=== PATIENT | female | born 2000 | race Caucasian/White ===

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

== ENCOUNTER 2021-02-17 06:56 | Emergency (ER) | payer OTHER, SELFPAY ==
[2021-02-17] VITALS (14 sets, daily range): BP systolic 107–122; BP diastolic 54–66; PULSE 62–74; RESP 12–18; TEMP 37; O2SAT 98–100
--- NOTE | 2021-02-17 08:41 | ED.URI ---
HPI - URI/Sore Throat General Chief Complaint: Upper Respiratory Infection Stated Complaint: URI Time Seen by Provider: 02/17/21 06:57 History of Present Illness HPI Narrative: Patient is a 21-year-old female who presents ER with sinus congestion sore throat. Ongoing for the last 2 days. No fevers chills or sweats. No loss of taste or smell. No reported Covid exposures. 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 No employees have been out with Covid other than one person who she did not have close contact with. She is concerned she may have strep throat. Related Data Home Medications Medication Instructions Recorded Confirmed levothyroxine 112 mcg PO DAILY 07/30/20 08/21/20 PNV cmb#95-ferrous fumarate-FA 1 tablet PO DAILY 08/21/20 08/21/20 [] levothyroxine 150 mcg PO DAILY 08/21/20 08/21/20 Allergies Allergy/AdvReac Type Severity Reaction Status Date / Time No Known Allergies Allergy Verified 07/30/20 15:35 Review of Systems Constitutional: Constitutional: Denies chills, Denies fever(s) and Denies weakness ENT: Reports nasal congestion and Reports sore throat Cardiovascular: Cardiovascular: Denies chest pain and Denies radiating jaw, neck or arm pain Respiratory: Respiratory: Denies cough, Denies dyspnea and Denies wheezing Gastrointestinal: Gastrointestinal: Denies nausea and Denies vomiting PMFSH Past Medical History Medical History ADHD Crohn disease Hx of fracture of humerus right Hypothyroid Surgical History Surgical History Hx of tonsillectomy Family History Family History Grandparent Diabetes mellitus Hypertension Mother Hypertension Hypothyroid Social History Social History Smoking status: Never smoker Substance use: never Gender identity (if verbalized by the patient): Female Spiritual care concerns: No Exam Narrative: GENERAL: Well-appearing, well-nourished, and in no acute distress. HEAD: Normocephalic, atraumatic. ENT: Mucous membranes moist. Normal-appearing posterior oropharynx without tonsillar hypertrophy or exudate. Uvula midline and nonedematous. CHEST: Clear to auscultation. No respiratory distress. HEART: Regular rate and rhythm. Normal peripheral pulses. NEURO: Alert and oriented x3. PSYCH: Normal mood and affect. Course Course Emergency Course: Strep negative. Discharge home. Vital Signs Vital signs: Vital Signs Temperature 98.6 F 02/17/21 07:01 Pulse Rate 74 02/17/21 07:01 Respiratory Rate 18 02/17/21 07:01 Blood Pressure 113/61 02/17/21 07:01 Pulse Oximetry 99 02/17/21 07:01 Temperature 98.6 F 02/17/21 07:01 Pulse Rate 62 02/17/21 08:29 Respiratory Rate 14 02/17/21 08:29 Blood Pressure 107/65 02/17/21 08:29 Pulse Oximetry 98 02/17/21 08:29 MDM - URI/Sore Throat Lab Data Labs: Strep Screen Presumptive Negative *(Reference Range: Negative)* Discharge Plan Discharge Clinical Impression: Upper respiratory infection Patient Disposition: Home, Self-Care Condition: Stable Instructions: Upper Respiratory Infection (ED) Additional Instructions: Return to the ER if you cannot breathe, you cannot keep down food or water, you develop fever over 100.4 ?F, you have additional concerns. Prescriptions: No Action levothyroxine 112 mcg Tablet 112 mcg PO DAILY RF: 0 levothyroxine 150 mcg tablet 150 mcg PO DAILY RF: 0 PNV cmb#95-ferrous fumarate-FA [] 28 mg iron- 800 mcg Tablet 1 tablet PO DAILY RF: 0 hydrocodone-acetaminophen 5-325 mg tablet 1 - 2 tablet PO Q4H PRN (Reason: pain) Qty: 25 RF: 0 triamcinolone acetonide 0.5
== END 2021-02-17 09:00 | disposition home or self-care (01) ==
PROVIDERS: Emergency Provider Emergency Medicine; PCP Family Medicine
DX: J06.9 Acute upper respiratory infection, unspecified (principal); E03.9 Hypothyroidism, unspecified; Z90.89 Acquired absence of other organs
CPT/HCPCS: 87081; 87880; 99283

== ENCOUNTER 2021-04-30 17:43 | Emergency (ER) | payer OTHER, SELFPAY ==
--- NOTE | ~2021-04-30 | XR_ITS ---
EXAMINATION: XR chest 1V portable 04/30/2021 18:23 INDICATION: Sore throat and shortness of breath PROCEDURE: AP portable chest COMPARISON: No prior studies for comparison. FINDINGS: The lungs are clear. The cardiomediastinal silhouette is within normal limits. There are no pleural effusions. There is no pneumothorax suspected. IMPRESSION: 1: NO ACUTE CARDIOPULMONARY DISEASE. Reviewed, dictated and finalized at location A. [employer]
[2021-04-30 17:53] VITALS: BP 127/56; PULSE 75; RESP 18; TEMP 36.1; O2SAT 100
--- NOTE | 2021-04-30 18:14 | ED.URI ---
HPI - URI/Sore Throat General Chief Complaint: Upper Respiratory Infection Stated Complaint: ST Time Seen by Provider: 04/30/21 18:00 Source: patient Mode of arrival: ambulatory Limitations: no limitations History of Present Illness HPI Narrative: This is a 21-year-old female that presents to the emergency department for cold symptoms over the last week. Reports cough, congestion, sore throat, and headache. Denies fever or sinus pain. Related Data Home Medications Medication Instructions Recorded Confirmed levothyroxine 112 mcg PO DAILY 07/30/20 08/21/20 levothyroxine 150 mcg PO DAILY 08/21/20 08/21/20 Allergies Allergy/AdvReac Type Severity Reaction Status Date / Time No Known Allergies Allergy Verified 04/30/21 18:20 Review of Systems Review of Systems: CONSTITUTIONAL: Denies fever ENT: Reports rhinorrhea, congestion, sore throat RESPIRATORY: Reports cough. Denies dyspnea. All systems reviewed & are unremarkable except as noted in HPI and below PMFSH Past Medical History Medical History ADHD Crohn disease Hx of fracture of humerus right Hypothyroid Surgical History Surgical History Hx of tonsillectomy Family History Family History Grandparent Diabetes mellitus Hypertension Mother Hypertension Hypothyroid Social History Social History Smoking status: Never smoker Substance use: never Gender identity (if verbalized by the patient): Female Spiritual care concerns: No Exam Narrative: GENERAL: Well-appearing, well-nourished, and in no acute distress. HEAD: Normocephalic, atraumatic. EYES: EOMI. ENT: Nares clear, no rhinorrhea or epistaxis. Mucous membranes moist. Oropharynx without tonsillar hypertrophy exudate or other lesions. Bilateral TMs pearly vega non-bulging. No sinus tenderness NECK: Supple. No adenopathy or masses. CHEST: Clear to auscultation. No respiratory distress. No wheezes rales or rhonchi HEART: Regular rate and rhythm. No murmur heard. Normal peripheral pulses. EXTREMITIES: Normal range of motion. No edema. SKIN: Warm, dry, no rash. NEURO: No focal deficits. Alert and oriented x3. PSYCH: Normal mood and affect Course Vital Signs Vital signs: Vital Signs Temperature 97 F L 04/30/21 17:53 Pulse Rate 75 04/30/21 17:53 Respiratory Rate 18 04/30/21 17:53 Blood Pressure 127/56 L 04/30/21 17:53 Pulse Oximetry 100 04/30/21 17:53 Temperature 97 F L 04/30/21 17:53 Pulse Rate 75 04/30/21 17:53 Respiratory Rate 18 04/30/21 17:53 Blood Pressure 127/56 L 04/30/21 17:53 Pulse Oximetry 100 04/30/21 17:53 MDM - URI/Sore Throat MDM Narrative Medical decision making narrative: Patient presents emergency department for cold symptoms ongoing over the last week. She is afebrile and nontoxic-appearing. Oxygen saturation is normal on room air. Lungs are clear on exam. Influenza and strep screens were negative. SARS-CoV-2 was sent. Chest x-ray without acute cardiopulmonary abnormality. Patient was instructed on continued care of viral infection. She is to follow-up with her primary care doctor. She was given warnings to return to the ER Lab Data Attestation: I reviewed the patient's lab results. Labs: Lab Results 04/30/21 Range/Units 18:37 SARS-CoV-2 RNA (RT-PCR) Pending Influenza A Screen Negative Reference Range: Negative Influenza B Screen Negative Reference Range: Negative Strep Screen Presumptive Negative *(Reference Range: Negative)* Imaging Data Radiologist's impression: ITS Impressions Chest X-Ray 04/30/21 18
[2021-04-30] MEDS: ACETAMINOPHEN 500 MG TABLET 1000 MG PO (18:34)
[2021-04-30] MEDS: KETOROLAC 30 MG/ML VIAL (*BKC) IM (18:34)
--- NOTE | 2021-04-30 18:58 | PC.NURSE ---
Report given to ABIGAIL Garcia
[2021-05-01 15:23] LABS: SARS-CoV-2 RNA PCR Negative
== END 2021-04-30 19:10 | disposition home or self-care (01) ==
PROVIDERS: Physician Assistant; Emergency Provider Emergency Medicine; PCP Family Medicine
DX: J06.9 Acute upper respiratory infection, unspecified (principal); Z20.822 Contact with and (suspected) exposure to COVID-19; E03.9 Hypothyroidism, unspecified; K50.90 Crohn's disease, unspecified, without complications
CPT/HCPCS: 71045; 87081; 87804; 87880; 96372; 99283; A9270; C9803; J1885; U0003; U0005

== ENCOUNTER 2021-05-24 19:08 | Emergency (ER) | payer OTHER, SELFPAY ==
--- NOTE | ~2021-05-24 | XR_ITS ---
XR patella RT 05/24/2021 19:51 INDICATION: Patellar pain after fall PROCEDURE: 2 views of the patella COMPARISON: No prior studies for comparison. FINDINGS: Fracture, dislocation or subluxation is not identified. The soft tissues appear within norm al limits. No foreign bodies are identified. IMPRESSION: 1: NO ACUTE BONE OR JOINT ABNORMALITY IDENTIFIED. Reviewed, dictated and finalized at location A. [employer]
[2021-05-24 19:15] VITALS: BP 125/66; PULSE 69; RESP 16; TEMP 36.7; O2SAT 99
--- NOTE | 2021-05-24 19:38 | ED.LOWEXIN ---
HPI - Extremity Injury (Lower) General Chief Complaint: Extremity Injury, Lower Stated Complaint: RIGHT KNEE PAIN Time Seen by Provider: 05/24/21 19:39 Source: patient and RN notes reviewed Mode of arrival: ambulatory Limitations: no limitations History of Present Illness HPI Narrative: 21-year-old female presents with concern for right knee pain. She reports 30 minutes prior to arrival she tripped hitting her knee on a concrete stair. She reports anterior knee pain and a small scrape to the front of the knee without bleeding. Reports mild pain at rest, worsening pain with weightbearing and palpation. She denies any extension. Related Data Home Medications Medication Instructions Recorded Confirmed levothyroxine 150 mcg PO DAILY 08/21/20 05/24/21 adalimumab [Humira(CF) Pen] 40 mg SUBCUT MONTHLY 05/24/21 05/24/21 levothyroxine 125 mcg PO DAILY 05/24/21 05/24/21 Allergies Allergy/AdvReac Type Severity Reaction Status Date / Time No Known Allergies Allergy Verified 05/24/21 19:29 Review of Systems Review of Systems: CONSTITUTIONAL: Denies malaise, chills, sweats, or fever. CARDIOVASCULAR: Denies chest pain, palpitations, or edema. RESPIRATORY: Denies cough or dyspnea. SKIN: Denies rash or itching, bruising, redness. Reports small open skin without bleeding MUSCULOSKELETAL: Reports right knee pain, swelling NEUROLOGIC: Denies numbness, weakness All systems reviewed & are unremarkable except as noted in HPI and below PMFSH Past Medical History Medical History ADHD Crohn disease Hx of fracture of humerus right Hypothyroid Surgical History Surgical History Hx of tonsillectomy Family History Family History Grandparent Diabetes mellitus Hypertension Mother Hypertension Hypothyroid Social History Social History Smoking status: Never smoker Substance use: never Gender identity (if verbalized by the patient): Female Spiritual care concerns: No Comments At time of signature, agree with nursing past medical, surgical, social and family history. There is no relevant family history pertinent to the presenting complaint Exam Narrative: GENERAL: Well-appearing, well-nourished, and in no acute distress. HEAD: Normocephalic, atraumatic. EYES: PERRLA, conjunctivae clear NECK: Supple. CHEST: Speaks in full sentences. No respiratory distress. HEART: Regular rate and rhythm. Normal and equal peripheral pulses. EXTREMITIES: Right knee has normal strength and sensation, normal range of motion. Mild anterior edema, no erythema or ecchymosis. 5/5 strength with knee flexion and extension. Normal sensation with sensitivity to light touch and pain. Anterior tenderness. No open wounds, no skin tenting, no devitalized tissue or atrophy, no trophic changes, no obvious deformity, alignment normal, nearby joints and structures intact. Distal pulses palpable and equal bilaterally, skin warm, dry, pink. Capillary refill less than 3 seconds. SKIN: Warm, dry, no rash. NEURO: Alert and oriented x3. PSYCH: Normal mood and affect Course Course Emergency Course: Patient is aware of diagnosis, understands and agrees to treatment plan. Anticipatory guidance given. Patient agrees to follow-up as directed and is aware of reasons to seek care at the emergency department. Portions of this record may have been created with voice recognition software Vital Signs Vital signs: Vital Signs Temperature 98.1 F 05/24/21 19:15 Pulse Rate 69 05/24/21 19:15 Respiratory Rate 16 05/24/21 19:15 Blood Pressure 125/66 05/24/21 19:15 Pulse Oximetry 99 05/24/21 19:15 Temperature 98.1 F 05/24/21 19:15 Pulse Rate 69 05/24/21 19:15 Respiratory Rate 16 05/24/21 19:15 Blood Pressure 125/66 12
== END 2021-05-24 20:00 | disposition home or self-care (01) ==
PROVIDERS: Emergency Provider Nurse Practitioner; PCP Family Medicine
DX: S89.91XA Unspecified injury of right lower leg, initial encounter (principal); W10.9XXA Fall (on) (from) unspecified stairs and steps, initial encounter; K50.90 Crohn's disease, unspecified, without complications; E03.9 Hypothyroidism, unspecified
CPT/HCPCS: 73560; 99213; G0463

== ENCOUNTER 2021-09-03 10:36 | Emergency (ER) | payer OTHER, SELFPAY ==
[2021-09-03 10:58] VITALS: BP 102/51; PULSE 66; RESP 16; TEMP 36.7; O2SAT 100
--- NOTE | 2021-09-03 11:05 | ED.URI ---
HPI - URI/Sore Throat General Chief Complaint: Upper Respiratory Infection Stated Complaint: sore throat Time Seen by Provider: 09/03/21 11:05 Source: patient Mode of arrival: ambulatory Limitations: no limitations History of Present Illness HPI Narrative: 21-year-old female presents with complaint of headache, sore throat since yesterday. No other symptoms. States came on suddenly. Afebrile. All systems reviewed and negative except as noted above. Related Data Home Medications Medication Instructions Recorded Confirmed levothyroxine 150 mcg PO DAILY 08/21/20 09/03/21 adalimumab [Humira(CF) Pen] 40 mg SUBCUT MONTHLY 05/24/21 09/03/21 levothyroxine 125 mcg PO DAILY 05/24/21 09/03/21 omeprazole 40 mg PO DAILY 09/03/21 09/03/21 Allergies Allergy/AdvReac Type Severity Reaction Status Date / Time No Known Allergies Allergy Verified 09/03/21 11:11 Review of Systems Review of Systems: CONSTITUTIONAL: Denies fever, chills, or sweats. EYES: Denies visual changes, redness, or discharge. ENT: Denies rhinorrhea, congestion. Reports sore throat. Denies otalgia. CARDIOVASCULAR: Denies chest pain, palpitations, or edema. RESPIRATORY: Denies cough or dyspnea. GASTROINTESTINAL: Denies abdominal pain, nausea, vomiting, or diarrhea. GENITOURINARY: Denies dysuria or hematuria. SKIN: Denies rash or itching. MUSCULOSKELETAL: Denies back pain, joint pain, or myalgia. NEUROLOGIC: Reports headache. Denies numbness, or weakness. PSYCHIATRIC: Denies anxiety or depression. All other systems reviewed are negative, except as documented in HPI. [facility] Past Medical History Medical History ADHD Crohn disease Hx of fracture of humerus right Hypothyroid Surgical History Surgical History Hx of tonsillectomy Family History Family History Grandparent Diabetes mellitus Hypertension Mother Hypertension Hypothyroid Social History Social History Smoking status: Never smoker Substance use: never Gender identity (if verbalized by the patient): Female Spiritual care concerns: No Comments At time of signature, agree with nursing past medical, surgical, social and family history. There is no relevant family history pertinent to the presenting complaint. Exam Narrative: GENERAL: This is a well-nourished, well-developed patient, in no apparent distress. HEAD: normocephalic, atraumatic. EYES: PERRL. Sclera clear/white. Vision is grossly intact. EARS: External ears normal, auditory canals clear and without drainage, TMs normal without perforation. Hearing grossly intact. NOSE: External nose normal with no obvious nasal discharge, nares without redness, no rhinorrhea. THROAT: Mucous membranes moist, posterior pharynx clear. NECK: Neck supple, non-tender without lymphadenopathy, masses or thyromegaly. CARDIOVASCULAR: Regular rate and rhythm without murmurs, gallops, or rubs. RESPIRATORY: Clear to auscultation. Breath sounds equal bilaterally. No wheezes, rales, or rhonchi. SKIN: warm, Dry, intact with no suspicious lesions or rash, good texture and turgor. NEURO: awake, alert, and oriented to person, place and time. There were no obvious focal neurologic abnormalities. EXTREMITIES: Normal range of motion all extremities. Course Course Level of Care: Express Care Visit Vital Signs Vital signs: Vital Signs Temperature 36.7 C 09/03/21 10:58 Pulse Rate 66 09/03/21 10:58 Respiratory Rate 16 09/03/21 10:58 Blood Pressure 102/51 L 09/03/21 10:58 Pulse Oximetry 100 09/03/21 10:58 Temperature 36.7 C 09/03/21 10:58 Pulse Rate 66 09/03/21 10:58 Respiratory Rate 16 09/03/21 10:58 Blood Pressure 102/51 L 09/03/21 10:58 Pulse Oximetry 100 09/03/21 10:58 Reviewed [facility] - URI/
== END 2021-09-03 11:38 | disposition home or self-care (01) ==
PROVIDERS: Emergency Provider Nurse Practitioner Family; PCP Family Medicine
DX: J02.9 Acute pharyngitis, unspecified (principal); K50.90 Crohn's disease, unspecified, without complications; E03.9 Hypothyroidism, unspecified
CPT/HCPCS: 87081; 87880; 99213; G0463

== ENCOUNTER 2021-10-10 10:25 | Emergency (ER) | payer OTHER, SELFPAY ==
[2021-10-10 10:35] VITALS: BP 104/52; PULSE 68; RESP 18; TEMP 36.3; O2SAT 99
--- NOTE | 2021-10-10 11:23 | ED.URI ---
HPI - URI/Sore Throat General Chief Complaint: Upper Respiratory Infection Stated Complaint: Sore Throat Time Seen by Provider: 10/10/21 11:24 Source: patient Mode of arrival: ambulatory Limitations: no limitations History of Present Illness HPI Narrative: Silvia Kern is a 21 yo female with PMH of Crohn's disease and not vaccinated for both flu and COVID who comes with a sore throat and body aches just not feeling well for 2 to 3 days. She states her sore throat is worse with the symptoms she has difficulty swallowing, has tried many [id number] remedies including sprays Related Data Home Medications Medication Instructions Recorded Confirmed levothyroxine 150 mcg PO DAILY 08/21/20 10/10/21 adalimumab [Humira(CF) Pen] 40 mg SUBCUT MONTHLY 05/24/21 10/10/21 levothyroxine 125 mcg PO DAILY 05/24/21 10/10/21 Allergies Allergy/AdvReac Type Severity Reaction Status Date / Time No Known Allergies Allergy Verified 09/03/21 11:11 Review of Systems Review of Systems: CONSTITUTIONAL: Denies fever, chills, sweats. EYES: Denies visual changes, redness, discharge. ENT: Denies rhinorrhea, congestion, has sore throat, has otalgia. CARDIOVASCULAR: Denies chest pain, palpitations, edema. RESPIRATORY: Denies dyspnea, wheezing, has cough GASTROINTESTINAL: Denies abdominal pain, nausea, vomiting, diarrhea. GENITOURINARY: Denies dysuria, hematuria, abnormal discharge SKIN: Denies rash or itching. NEUROLOGIC: Denies numbness, or focal weakness. PSYCHIATRIC: Denies anxiety or depression. [facility] Past Medical History Medical History ADHD Crohn disease Hx of fracture of humerus right Hypothyroid Surgical History Surgical History Hx of tonsillectomy Family History Family History Grandparent Diabetes mellitus Hypertension Mother Hypertension Hypothyroid Social History Social History Smoking status: Never smoker Substance use: never Gender identity (if verbalized by the patient): Female Spiritual care concerns: No Comments At time of signature, I agree with nursing past medical, surgical, social and family history. There is no relevant family history pertinent to the presenting complaint. Exam Narrative: GENERAL: This is a well-nourished, well-developed patient, in mild distress. HEAD: normocephalic, atraumatic. EYES: PERRL. Sclera clear/white. Vision is grossly intact. EARS: External ears normal, auditory canals erythema and without drainage, TMs normal without perforation. Hearing grossly intact. NOSE: External nose normal without nasal discharge, nares without redness, has rhinorrhea. THROAT: Mucous membranes moist, posterior pharynx erythematous no exudate NECK: Neck supple, non-tender CARDIOVASCULAR: Regular rate and rhythm without murmurs, gallops, or rubs. RESPIRATORY: Clear to auscultation. Breath sounds equal bilaterally. No wheezes, rales, or rhonchi. GASTROINTESTINAL: Abdomen soft, SKIN: warm, intact with no suspicious lesions or rash, good texture and turgor. NEURO: awake, alert, and oriented to person, place and time. There were no obvious focal neurologic abnormalities. Steady gait EXTREMITIES: Normal range of motion. BACK: Nontender without deformity Course Course Emergency Course: Patient here with sore throat and cough and feeling not feeling well, x3 days Strep test- negative Flu test - negative COVID test- negative Started on prednisone Melissa Espino right Zithromax Level of Care: Express Care Visit Vital Signs Vital signs: Vital Signs Temperature 97.4 F L 10/10/21 10:35 Pulse Rate 68 10/10/21 10:35 Respiratory Rate 18 10/10/21 10:35 Blood Pressure 104/52 L 10/10/21 10:35 Pulse Oximetry 99 10/10/21 10:35 Temperature 97.4 F L 05/0
== END 2021-10-10 12:09 | disposition home or self-care (01) ==
PROVIDERS: Emergency Provider Nurse Practitioner; PCP Family Medicine
DX: J32.9 Chronic sinusitis, unspecified (principal); B96.89 Other specified bacterial agents as the cause of diseases classified elsewhere; K50.90 Crohn's disease, unspecified, without complications; E03.9 Hypothyroidism, unspecified; Z20.822 Contact with and (suspected) exposure to COVID-19
CPT/HCPCS: 87081; 87426; 87804; 87880; 99213; C9803; G0463

== ENCOUNTER 2021-12-16 10:33 | Emergency (ER) | payer OTHER, SELFPAY ==
[2021-12-16 10:40] VITALS: BP 126/73; PULSE 98; RESP 16; TEMP 36.7; O2SAT 100
--- NOTE | 2021-12-16 10:42 | ED.URI ---
HPI - URI/Sore Throat General Chief Complaint: Upper Respiratory Infection Stated Complaint: uri Time Seen by Provider: 12/16/21 10:44 Source: patient and RN notes reviewed Mode of arrival: ambulatory Limitations: no limitations History of Present Illness HPI Narrative: 21-year-old female presents to the [facility] with complaints of a sore throat, runny nose, nasal congestion for 2 days. Patient states the symptoms started yesterday and took Claritin and a throat spray with no relief. Patient appears nontoxic. Vitals are stable. Denies any chest pain, abdominal pain. Denies fevers. Related Data Home Medications Medication Instructions Recorded Confirmed levothyroxine 150 mcg tablet 150 mcg PO DAILY 08/21/20 12/16/21 adalimumab 40 mg/0.4 mL 40 mg subcut MONTHLY 05/24/21 12/16/21 subcutaneous pen kit (Humira(CF) Pen) levothyroxine 125 mcg tablet 125 mcg PO DAILY 05/24/21 12/16/21 etonogestrel 68 mg subdermal 1 implant subdermal ONCE 12/16/21 12/16/21 implant (Nexplanon) Allergies Allergy/AdvReac Type Severity Reaction Status Date / Time No Known Allergies Allergy Verified 12/16/21 10:39 Review of Systems Review of Systems: All systems reviewed & are unremarkable except as noted in HPI and below Constitutional: Constitutional: Reports no additional constitutional complaints, Denies chills and Denies fever(s) Eyes: Eyes: Reports no additional eye complaints ENT: Reports as per HPI, Reports nasal congestion and Reports sore throat Cardiovascular: Cardiovascular: Reports no additional cardiovascular complaints Respiratory: Respiratory: Reports no additional respiratory complaints Gastrointestinal: Gastrointestinal: Reports no additional gastrointestinal complaints Musculoskeletal: Musculoskeletal: Reports no additional musculoskeletal complaints Integumentary/Breasts: Skin/Breast: Reports system reviewed and no additional complaints, except as docu Neurologic: Reports system reviewed and no additional complaints, except as documented Psychiatric: Psychiatric: Reports no additional psychiatric complaints Allergic/Immunologic: Allergic/Immunologic: Reports no additional allergic/immunologic complaints PMFSH Past Medical History Medical History ADHD Crohn disease Hx of fracture of humerus right Hypothyroid Surgical History Surgical History Hx of tonsillectomy Family History Family History Grandparent Diabetes mellitus Hypertension Mother Hypertension Hypothyroid Social History Social History Smoking status: Never smoker Substance use: never Gender identity (if verbalized by the patient): Female Spiritual care concerns: No Comments At the time of my signature, I reviewed and agree with the nursing past medical, surgical, social, and family history. There is no relevant family history pertinent to the patient complaint. Exam Const: General: healthy appearing, no acute distress and alert Nutritional Appearance: well nourished Orientation/consciousness: patient oriented x3 Limitations: no limitations HENMT: Head: normal to inspection Ears: external ears normal General nose exam: Normal external nose present and Normal nares present Face and sinus: normal facial exam Mouth: Yes Normal oral and palatal mucosa present Throat: posterior oropharynx normal Eyes: General: appearance normal, both eyes and all related structures Pupils: Equal, round and reactive pupils present Neck: Neck: normal visual inspection, no lymphadenopathy and no meningeal signs Chest: Chest palpation & inspection: normal inspection of the chest Resp: Effort & Inspection: normal respiratory effort and no use of accessory muscles Auscultation: clear to auscultation bilaterally
[2021-12-16 21:06] LABS: SARS-CoV-2 RNA PCR Negative
== END 2021-12-16 11:20 | disposition home or self-care (01) ==
PROVIDERS: Emergency Provider Nurse Practitioner; PCP Family Medicine
DX: J06.9 Acute upper respiratory infection, unspecified (principal); Z20.822 Contact with and (suspected) exposure to COVID-19; F90.9 Attention-deficit hyperactivity disorder, unspecified type; K50.90 Crohn's disease, unspecified, without complications; E03.9 Hypothyroidism, unspecified
CPT/HCPCS: 87081; 87804; 87880; 99213; C9803; G0463; U0003; U0005

== ENCOUNTER 2022-01-28 15:15 | Outpatient (CLI) | payer OTHER, SELFPAY ==
--- NOTE | ~2022-01-28 | US_ITS ---
EXAMINATION: US pelvic complete DATE: 01/28/2022 15:47 INDICATION: ABN UTERINE BLEEDING TECHNIQUE: Multiple transabdominal and endovaginal sonographic images of the pelvis were obtained. COMPARISON: None. FINDINGS: Uterus: 8.4 x 3.5 x 5.3 cm. Endometrial complex measures 0.7 cm. Right Ovary: 17.3 x 14.2 x 13.5 cm. Cystic right ovarian or adnexal lesion measuring up to 16.7 cm wi th reticular internal echogenicities, noting that character is difficult to fully define due to size. Vascular flow is present in the wall of the lesion, but this could not be confidently localized to o varian tissue. Left Ovary: Not visualized. There is no free fluid in the pelvis. IMPRESSION: 16.7 cm indeterminate right adnexal/ovarian mass. Ovarian blood flow not confirmed. Recommend gynecol ogy referral for possible surgical excision. Left ovary not visualized. Reviewed, dictated and finalized at location [facility]. IMPRESSION: 16.7 cm indeterminate right adnexal/ovarian mass. Ovarian blood flow not confir med. Recommend gynecology referral for possible surgical excision. Left ovary n ot visualized.
== END 2022-01-28 15:16 | disposition home or self-care (01) ==
PROVIDERS: PCP Family Medicine; Visit Provider Nurse Practitioner Obstetrics & Gynecology
DX: N93.9 Abnormal uterine and vaginal bleeding, unspecified (principal); N83.9 Noninflammatory disorder of ovary, fallopian tube and broad ligament, unspecified
CPT/HCPCS: 76856

== ENCOUNTER 2022-06-12 07:19 | Emergency (ER) | payer OTHER, SELFPAY ==
--- NOTE | ~2022-06-12 | CT_ITS ---
CT Abdomen and Pelvis with contrast. History: Abdominal pain. Spiral CT of the abdomen and pelvis was performed after the administration of intravenous contrast. 1 00 cc of Omnipaque 350 was administered intravenously without complication. Dose reduction technique was used on this scan by utilizing automated exposure control and iterative reconstruction technique. The dose-length product (DLP) was 1523.41 mGy-cm. Findings: Scans through the lung bases demonstrate mild atelectatic change. The liver, spleen, pancreas, gallbladder, adrenals and kidneys are within normal limits. No evidence of aortic aneurysm. No lymphadenopathy is seen. There is no evidence of bowel obstruction. There is no evidence to suggest acute appendicitis or dive rticulitis. Images through the pelvis were performed. Bladder unremarkable. 3.4 cm right ovarian cyst present. No ascites is seen. Impression: 3.4 cm right ovarian cyst. No evidence for acute appendicitis. Female Reviewed, dictated and finalized at [facility]. [employer] Impression: 3.4 cm right ovarian cyst. No evidence for acute appendicitis. Female
[2022-06-12 07:24] VITALS: BP 121/62; PULSE 67; RESP 14; TEMP 36.6; O2SAT 100
--- NOTE | 2022-06-12 07:34 | ED.ABDPAIN ---
HPI - Abdominal Pain General Chief Complaint: Abdominal Pain Stated Complaint: abdominal pain with n/v/d Time Seen by Provider: 06/12/22 07:32 Source: patient Mode of arrival: ambulatory Limitations: no limitations History of Present Illness HPI narrative: Patient presents with intermittent pain in her right lower quadrant started 3 weeks ago. History of left oophorectomy March 2022, patient very anxious about the possibility of ovarian cyst at the right side. Gets better on Tylenol/ibuprofen as needed. Patient reports nausea, vomiting once a day for 2 days in a row, diarrhea twice a day for 2 days in a row. She denies any fever, chills, vaginal bleeding or discharge Related Data Home Medications Medication Instructions Recorded Confirmed levothyroxine 150 mcg tablet 150 mcg PO DAILY 08/21/20 12/16/21 adalimumab 40 mg/0.4 mL 40 mg subcut MONTHLY 05/24/21 12/16/21 subcutaneous pen kit (Humira(CF) Pen) levothyroxine 125 mcg tablet 125 mcg PO DAILY 05/24/21 12/16/21 etonogestrel 68 mg subdermal 1 implant subdermal ONCE 12/16/21 12/16/21 implant (Nexplanon) Allergies Allergy/AdvReac Type Severity Reaction Status Date / Time No Known Allergies Allergy Verified 06/12/22 07:20 Review of Systems Review of Systems: All systems reviewed & are unremarkable except as noted in HPI and below PMFSH Past Medical History Medical History ADHD Crohn disease Hx of fracture of humerus right Hypothyroid Surgical History Surgical History Hx of tonsillectomy Family History Family History Grandparent Diabetes mellitus Hypertension Mother Hypertension Hypothyroid Social History Social History Smoking status: Never smoker Substance use: never Gender identity (if verbalized by the patient): Female Spiritual care concerns: No Exam Narrative: General appearance: Well-developed, well-nourished Skin: Normal color Head: Normocephalic, nontraumatic Eyes: Clear conjunctiva ENT: Oropharynx normal, ears normal, nose normal Neck: Supple, nontender Chest and respiratory: Airway patent, no respiratory distress, no accessory muscle use Heart: Regular rate/rhythm Abdomen: Soft, slight right lower quadrant tenderness, no rebound, no guarding, no organomegaly, quiet bowel sounds Vascular: Normal peripheral pulses, normal capillary refill. Musculoskeletal: Normal range of motion, nontender back Neurologic: Alert and oriented ?3, [employer] is normal as tested, no gross motor deficit Course Consultations Consultation #1: Dr. Larson Patient follow-up as soon as possible Date: 06/12/22 Time: 09:45 Vital Signs Vital signs: Vital Signs Temperature 36.6 C 06/12/22 07:24 Pulse Rate 67 06/12/22 07:24 Respiratory Rate 14 06/12/22 07:24 Blood Pressure 121/62 06/12/22 07:24 Pulse Oximetry 100 06/12/22 07:24 Oxygen Delivery Room Air 06/12/22 07:24 Temperature 36.6 C 06/12/22 07:24 Pulse Rate 67 06/12/22 07:24 Respiratory Rate 14 06/12/22 07:24 Blood Pressure 121/62 06/12/22 07:24 Pulse Oximetry 100 06/12/22 07:24 Oxygen Delivery Room Air 06/12/22 07:24 MDM - Abdominal Pain Differential Diagnosis Differential diagnosis: Likely abdominal pain, acute appendicitis, calculus of kidney, constipation and diverticulitis Lab Data 06/12/22 07:55 06/12/22 07:55 Labs: Lab Results 06/12/22 06/12/22 06/12/22 Range/Units 07:37 07:55 07:55 WBC 6.3 (4.5-10.0) K/
[2022-06-12 07:47] LABS: Add Urine Microscopic? YES; Appearance Urine Slightly Cloudy (Clear); Bilirubin Urine Negative (Negative); Blood Urine 3+ (Negative); Color Urine Amber (Yellow); Glucose Urine UA Negative (Negative); Ketones Urine Negative (Negative); Leukocyte Esterase Ur Negative LEU/UL (Negative); Nitrate Urine Negative (Negative); Protein Urine 1+ mg/dL (Negative); Specific Grav Ur 1.025 (1.001-1.035); Urobilinogen Urine 0.2 mg/dL (<2.0)
[2022-06-12 07:54] LABS: Mucus Urine Rare /lpf; Squamous Epithelial Cell Urine Many /hpf (Few); WBC Urine 16-20 /hpf
[2022-06-12] MEDS: ONDANSETRON INJ 4 MG/2 ML VIAL IV PUSH (08:04)
[2022-06-12] MEDS: SODIUM CHLORIDE 0.9% IV 1,000 ML 999 ML IV CONT (08:04)
[2022-06-12] MEDS: HYDROmorphone HCL INJ (*CRX) 1 MG/ML SYR 0.5 MG IV PUSH (08:05)
[2022-06-12 08:08] LABS: Basophils Percent Auto 0.6 % (0.2-1.2); Eosinophils Absolute Auto 0.1 K/mm3 (0-0.3); Eosinophils Percent Auto 1.6 % (0-4.4); Hematocrit 36.8 % (37.0-47.0); Hemoglobin 11.7 g/dL (12.0-15.0); Immature Granulocyte Absolute 0.02 K/mm3 (0.00-0.031); Immature Granulocyte Percent A 0.3 % (0-0.5); Lymphocytes Absolute Auto 2.43 K/mm3 (0.9-3.2); Lymphocytes Percent Auto 38.9 % (18.3-44.2); Mean Corpuscular HGB Conc 31.8 g/dl (32-36); Mean Corpuscular Hemoglobin 26.3 pg (26-34); Mean Corpuscular Volume 82.7 fl (80-100); Monocytes Absolute Auto 0.3 K/mm3 (0.1-0.6); Monocytes Percent Auto 4.8 % (2.6-8.5); Neutrophils Absolute Auto 3.4 K/mm3 (1.3-6.7); Neutrophils Percent Auto 53.8 % (45.5-73.1); Platelet Count Result 246 k/mm3 (150-375); Red Blood Count 4.45 M/mm3 (4.2-5.4); Red Cell Distribution Width 14.7 % (11.5-14.5); White Blood Count 6.3 K/mm3 (4.5-10.0)
[2022-06-12 08:24] LABS: Alanine Aminotransferase 27 U/L (6-35); Albumin Level 4.5 g/dL (3.5-5.1); Alkaline Phosphatase 39 U/L (38-126); Anion Gap 6 mmol/L (8-16); Aspartate Amino Transferase 29 U/L (14-36); Bilirubin,Total 0.4 mg/dL (0.2-1.3); Blood Urea Nitrogen 14 mg/dL (7-17); Calcium 9.2 mg/dL (8.4-10.2); Carbon Dioxide 24 mmol/L (22-30); Chloride 110 mmol/L (98-107); Estimated CRCL calculation 164 ml/min; Estimated Glomerular Filt Rate > 60; Glucose 103 mg/dL (65-110); Lipase 90 U/L (23-300); Sodium 140 mmol/L (137-145)
[2022-06-12 10:06] VITALS: BP 112/70; PULSE 74; RESP 12; O2SAT 98
== END 2022-06-12 10:08 | disposition home or self-care (01) ==
PROVIDERS: Emergency Provider Emergency Medicine; PCP Family Medicine
DX: N83.201 Unspecified ovarian cyst, right side (principal); K50.90 Crohn's disease, unspecified, without complications; E03.9 Hypothyroidism, unspecified; Z90.721 Acquired absence of ovaries, unilateral
CPT/HCPCS: 36415; 74177; 80053; 81001; 81025; 83690; 85025; 87086; 87088; 96361; 96374; 96375; 99284; J1170; J2405; J7030; Q9967

== ENCOUNTER 2022-10-05 14:39 | Emergency (ER) | payer OTHER, SELFPAY ==
[2022-10-05 14:56] VITALS: BP 94/61; PULSE 116; RESP 18; TEMP 36.9; O2SAT 99
--- NOTE | 2022-10-05 15:09 | ED.URI ---
HPI - URI/Sore Throat General Chief Complaint: Upper Respiratory Infection Stated Complaint: Sore Throat Time Seen by Provider: 10/05/22 15:00 Source: patient Mode of arrival: ambulatory Limitations: no limitations History of Present Illness HPI Narrative: Silvia is a 22-year-old female patient presenting to the clinic today with complaints of sore throat, headache, nasal congestion, nausea, and diarrhea x1 week. She denies any known fever or chills. MD elicited complaint: cough, sore throat, rhinorrhea, nasal congestion and other Related Data Home Medications Medication Instructions Recorded Confirmed levothyroxine 175 mcg tablet 175 mcg DIRECTED 10/05/22 10/05/22 mercaptopurine 50 mg tablet 50 mg DIRECTED 10/05/22 10/05/22 Allergies Allergy/AdvReac Type Severity Reaction Status Date / Time No Known Allergies Allergy Verified 06/12/22 07:20 Review of Systems Review of Systems: Pertinent positives per HPI. Patient denies any fever, chills, rash, headache, visual changes, dizziness, cough, shortness of breath, chest pain, palpitations, nausea, vomiting, diarrhea, constipation, abdominal pain, or any urinary issues. [facility] Past Medical History Medical History ADHD Crohn disease Hx of fracture of humerus right Hypothyroid Surgical History Surgical History Hx of tonsillectomy Family History Family History Grandparent Diabetes mellitus Hypertension Mother Hypertension Hypothyroid Social History Social History Smoking status: Never smoker Substance use: never Living arrangements: with family Gender identity (if verbalized by the patient): Female Spiritual care concerns: No Comments At the time of my signature, I reviewed and agree with the nursing past medical, surgical, social, and family history. There is no relevant family history pertinent to the patient complaint. Exam Narrative: General: Well-developed, well nourished, in no apparent distress Head: Normocephalic, atraumatic Eyes: Pupils equally round and reactive to light bilaterally, EOM intact, sclera and conjunctive clear, no discharge, lids normal Ears: TMs intact and clear, ear canals clear, no drainage, grossly hearing normal. Nose: Nares patent, clear discharge, no inflammation, no sinus tenderness. Mouth: Oral pharynx red without lesions or masses, good dentition, MMM. Neck: Supple, trachea midline, no enlargement of anterior or posterior cervical nodes, no thyroid masses or goiter palpable. Cardio: Regular rate and rhythm, s1 and s2 normal, no murmur appreciated. Resp: Clear to auscultation bilaterally, no rhonchi, rales, wheezing or rubs Course Course Emergency Course: Portions of this record may have been created with voice recognition software. Level of Care: Express Care Visit Vital Signs Vital signs: Vital Signs Temperature 36.9 C 10/05/22 14:56 Pulse Rate 116 H 10/05/22 14:56 Respiratory Rate 18 10/05/22 14:56 Blood Pressure 94/61 L 10/05/22 14:56 Pulse Oximetry 99 10/05/22 14:56 Oxygen Delivery Room Air 10/05/22 14:56 Temperature 36.9 C 10/05/22 14:56 Pulse Rate 116 H 10/05/22 14:56 Respiratory Rate 18 10/05/22 14:56 Blood Pressure 94/61 L 10/05/22 14:56 Pulse Oximetry 99 10/05/22 14:56 Oxygen Delivery Room Air 10/05/22 14:56 Vital signs reviewed MDM - URI/Sore Throat MDM Narrative Medical decision making narrative: At the time of visit patient is resting comfortably on exam table. Strep screen was obtained was positive in the clinic today. Prescription for amoxicillin was sent to the pharmacy and supportive measures were discussed with the patient she voiced understanding discharge instructions and agrees to treatment plan. [place]
== END 2022-10-05 15:21 | disposition home or self-care (01) ==
PROVIDERS: Emergency Provider Nurse Practitioner Family; PCP Family Medicine
DX: J02.0 Streptococcal pharyngitis (principal); E03.9 Hypothyroidism, unspecified; K50.90 Crohn's disease, unspecified, without complications
CPT/HCPCS: 87880; 99213; G0463

== ENCOUNTER 2022-11-24 13:33 | Emergency (ER) | payer OTHER, SELFPAY ==
[2022-11-24 13:40] VITALS: BP 115/56; PULSE 80; RESP 16; TEMP 37.4; O2SAT 99
--- NOTE | 2022-11-24 13:43 | ED.NAVMDI ---
HPI - Nausea/Vomiting/Diarrhea General Chief complaint: Nausea/Vomiting/Diarrhea Stated complaint: Diarrhea/Vomiting Time Seen by Provider: 11/24/22 13:53 Source: patient and RN notes reviewed Mode of arrival: ambulatory Limitations: no limitations History of Present Illness HPI Narrative: 22 year old female presents with concern for N/V/D for two-three days. She reports she tried Pepto-Bismol, and took the Zofran. Reports Zofran helped with her nausea. She reports she continues to have diarrhea. She denies bloody stools. She denies abdominal pain, reports abdominal cramping. She reports chills and headache. 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 She says her periods are irregular, her last menstrual period was last month. She reports urine frequency, denies urgency, dysuria, back pain. She denies fever, body MD elicited complaint: nausea, vomiting and diarrhea Related Data Home Medications Medication Instructions Recorded Confirmed levothyroxine 175 mcg tablet 175 mcg DIRECTED 10/05/22 10/05/22 mercaptopurine 50 mg tablet 50 mg DIRECTED 10/05/22 10/05/22 Allergies Allergy/AdvReac Type Severity Reaction Status Date / Time No Known Allergies Allergy Verified 11/24/22 13:38 Review of Systems Review of Systems: CONSTITUTIONAL: Denies malaise, sweats, or fever. Reports chills ENT: Denies rhinorrhea, congestion, sinus pain, otalgia or sore throat. CARDIOVASCULAR: Denies chest pain, palpitations, or edema. RESPIRATORY: Denies cough or dyspnea. GASTROINTESTINAL: Denies abdominal pain. Reports abdominal cramping, nausea, vomiting, diarrhea. Denies bloody, or mucous stools. GENITOURINARY: Denies dysuria or hematuria. MUSCULOSKELETAL: Denies myalgia. NEUROLOGIC: Reports headache. All systems reviewed & are unremarkable except as noted in HPI and below PMFSH Past Medical History Medical History ADHD Crohn disease Hx of fracture of humerus right Hypothyroid Surgical History Surgical History Hx of tonsillectomy Family History Family History Grandparent Diabetes mellitus Hypertension Mother Hypertension Hypothyroid Social History Social History Smoking status: Never smoker Substance use: never Living arrangements: with family Gender identity (if verbalized by the patient): Female Spiritual care concerns: No Comments At time of signature, agree with nursing past medical, surgical, social and family history. There is no relevant family history pertinent to the presenting complaint Exam Narrative: GENERAL: Well-appearing, well-nourished, and in no acute distress. HEAD: Normocephalic, atraumatic. EYES: PERRLA, conjunctivae clear, and EOMI. ENT: Nares clear, turbinates pink, no rhinorrhea or epistaxis. Mucous membranes moist. Oropharynx without edema, erythema, or lesions. Tonsils not enlarged and without exudate. NECK: Supple. No lymphadenopathy CHEST: Speaks in full sentences. No respiratory distress. HEART: Regular rate and rhythm. ABDOMEN: Soft, obese, nondistended, nontender. No guarding, rebound tenderness, or rigidity. No pulsatile masses. Bowel sounds present in all four quadrants. No organomegaly. Negative Diehl?s sign. No periumbilical tenderness. No Supra public tenderness or distension. No hernia noted. No scars or surface trauma. SKIN: Warm, dry, no rash. NEURO: Alert and oriented x3. PSYCH: Normal mood and affect Course Course Emergency Course: Patient is aware of diagnosis, understands and agrees to treatment plan. Anticipatory guidance given. Patient agrees to follow-up as directed and is aware of reasons to seek care at the emergency department. Portions of this record may have been created with voice recognition software Level of Care: Express Car
== END 2022-11-24 14:21 | disposition home or self-care (01) ==
PROVIDERS: Emergency Provider Nurse Practitioner; PCP Family Medicine
DX: R11.2 Nausea with vomiting, unspecified (principal); R19.7 Diarrhea, unspecified; K50.90 Crohn's disease, unspecified, without complications; E03.9 Hypothyroidism, unspecified
CPT/HCPCS: 81003; 99213; G0463

== ENCOUNTER 2022-12-04 10:54 | Emergency (ER) | payer OTHER, SELFPAY ==
[2022-12-04 11:04] VITALS: BP 111/49; PULSE 77; RESP 16; TEMP 36.7; O2SAT 100
--- NOTE | 2022-12-04 11:37 | ED.GENADULT ---
HPI - General Adult General Chief complaint: Dental/Oral Stated complaint: mouth pain right side Time Seen by Provider: 12/04/22 11:37 Source: patient, RN notes reviewed and old records reviewed Mode of arrival: ambulatory Limitations: no limitations History of Present Illness HPI narrative: 22-year-old female presents to the [facility] with complaints of right lower dental pain. Has a decayed tooth. Yesterday noticed some swelling to the lower right molar center. Pushed on it and noticed some purulent discharge. Patient reports that she has a dental appointment with [facility] on December 09 Related Data Home Medications Medication Instructions Recorded Confirmed levothyroxine 175 mcg tablet 175 mcg DIRECTED 10/05/22 10/05/22 Crohns Injection 12/04/22 mercaptopurine 50 mg tablet mg 12/04/22 Allergies Allergy/AdvReac Type Severity Reaction Status Date / Time No Known Allergies Allergy Verified 12/04/22 11:10 Review of Systems Review of Systems: All systems reviewed & are unremarkable except as noted in HPI and below Constitutional: Constitutional: Reports no additional constitutional complaints Eyes: Eyes: Reports no additional eye complaints ENT: Reports as per HPI Cardiovascular: Cardiovascular: Reports no additional cardiovascular complaints, Denies chest pain and Denies dyspnea Respiratory: Respiratory: Reports no additional respiratory complaints, Denies chest congestion, Denies cough and Denies dyspnea Gastrointestinal: Gastrointestinal: Reports no additional gastrointestinal complaints, Denies abdominal pain, Denies nausea and Denies vomiting Musculoskeletal: Musculoskeletal: Reports no additional musculoskeletal complaints Integumentary/Breasts: Skin/Breast: Reports system reviewed and no additional complaints, except as docu Neurologic: Reports system reviewed and no additional complaints, except as documented Psychiatric: Psychiatric: Reports no additional psychiatric complaints Allergic/Immunologic: Allergic/Immunologic: Reports no additional allergic/immunologic complaints [facility] Past Medical History Medical History ADHD Crohn disease Hx of fracture of humerus right Hypothyroid Surgical History Surgical History Hx of tonsillectomy Family History Family History Grandparent Diabetes mellitus Hypertension Mother Hypertension Hypothyroid Social History Social History (Reviewed 12/05/22 @ 14:18 by ALPESH Parkinson Smoking status: Never smoker Substance use: never Living arrangements: with family Gender identity (if verbalized by the patient): Female Spiritual care concerns: No Comments At the time of my signature, I reviewed and agree with the nursing past medical, surgical, social, and family history. There is no relevant family history pertinent to the patient complaint. Exam Const: General: cooperative, healthy appearing, comfortable, no acute distress, well developed, alert and well nourished Nutritional Appearance: well nourished and obese Orientation/consciousness: patient oriented x3 Limitations: no limitations HENMT: Head: normal to inspection Ears: hearing grossly normal bilaterally and external ears normal Face/Nose/Sinus: Normal external nose present, Normal nares present, Normal nasal mucous membranes and turbinates present and normal facial exam Face and sinus: normal facial exam Mouth: Yes Normal oral and palatal mucosa present, Yes lip normal and Yes moist mucous membranes Teeth and gingiva: abnormal tooth and associated gingiva (right lower decay, caries and swelling ) and poor dentition Throat: posterior oropharynx normal and uvula midline Eyes: General: appearance normal, both eyes and all related structures Alignment and Position: alignment normal Periorbital: perior
== END 2022-12-04 11:50 | disposition home or self-care (01) ==
PROVIDERS: Emergency Provider Nurse Practitioner; PCP Family Medicine
DX: K04.7 Periapical abscess without sinus (principal); E03.9 Hypothyroidism, unspecified
CPT/HCPCS: 99213; G0463

== ENCOUNTER 2023-01-29 11:30 | Emergency (ER) | payer OTHER, SELFPAY ==
[2023-01-29 11:38] VITALS: BP 117/70; PULSE 88; RESP 16; TEMP 37.4; O2SAT 100
[2023-01-29 11:41] VITALS: BP 117/70; PULSE 88; RESP 16; TEMP 37.4; O2SAT 100
--- NOTE | 2023-01-29 12:08 | ED.URI ---
HPI - URI/Sore Throat General Chief Complaint: Upper Respiratory Infection Stated Complaint: Sore Throat Time Seen by Provider: 01/29/23 12:08 Source: patient, RN notes reviewed and old records reviewed Mode of arrival: ambulatory Limitations: no limitations History of Present Illness HPI Narrative: 23-year-old female who presents to [facility] with complaints of awakening this morning with sore throat and right ear pain. 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 Patient reports no fevers chills or sweats or any body aches. MD elicited complaint: cough and sore throat Onset (ago): day(s) (since this morning) Pain scale (0-10): 6 Able to tolerate fluids by mouth: Yes Treatments prior to arrival: acetaminophen and other (claritin) Related Data Home Medications Medication Instructions Recorded Confirmed levothyroxine 100 mcg tablet 100 mcg PO DAILY 01/29/23 01/29/23 levothyroxine 175 mcg tablet 175 mcg PO DAILY 01/29/23 01/29/23 Allergies Allergy/AdvReac Type Severity Reaction Status Date / Time No Known Allergies Allergy Verified 01/29/23 11:39 Review of Systems Review of Systems: CONSTITUTIONAL: Denies malaise, chills, sweats, or fever. EYES: Denies visual changes, redness, or discharge. ENT: Reports rhinorrhea, congestion, no sinus pain,right otalgia and sore throat. CARDIOVASCULAR: Denies chest pain, palpitations, or edema. RESPIRATORY: Reports no cough.? Denies dyspnea. GASTROINTESTINAL: Denies abdominal pain,states some nausea, no vomiting, positive for diarrhea SKIN: Denies rash or itching. MUSCULOSKELETAL: Denies myalgia. NEUROLOGIC: Denies headache. All systems reviewed & are unremarkable except as noted in HPI and below PMFSH Past Medical History Medical History ADHD Crohn disease Hx of fracture of humerus right Hypothyroid Surgical History Surgical History Hx of tonsillectomy Family History Family History Grandparent Diabetes mellitus Hypertension Mother Hypertension Hypothyroid Social History Social History Smoking status: Never smoker Substance use: never Living arrangements: with family Gender identity (if verbalized by the patient): Female Spiritual care concerns: No Comments At time of signature, agree with nursing past medical, surgical, social and family history. There is no relevant family history pertinent to the presenting complaint Exam Narrative: GENERAL: Well-appearing, well-nourished, and in no acute distress. HEAD: Normocephalic EYES: PERRLA, conjunctivae clear ENT: Nares clear, turbinates edematous and erythematous, clear discharge. Mucous membranes moist. TM pearly vega with dull light reflex bilaterally; no tragal tenderness. Oropharynx erythematous without lesions. Tonsils not present and throat without exudate, no drooling, no hoarseness, no trismus, uvula midline. NECK: Supple. No lymphadenopathy CHEST: Clear to auscultation, breath sounds equal. No wheezing, rhonchi, rales, or stridor. No respiratory distress, speaks in full sentences SAO2 100% on room air. HEART: Regular rate and rhythm. No murmur heard. SKIN: Warm, dry, no rash. NEURO: Alert and oriented x3. PSYCH: Normal mood and affect Course Course Emergency Course: Patient is aware of diagnosis, understands and agrees to treatment plan.? Anticipatory guidance given.? Patient agrees to follow-up as dire
== END 2023-01-29 12:26 | disposition home or self-care (01) ==
PROVIDERS: Emergency Provider Registered Nurse; PCP Family Medicine
DX: J06.9 Acute upper respiratory infection, unspecified (principal); J02.9 Acute pharyngitis, unspecified; K50.90 Crohn's disease, unspecified, without complications; E03.9 Hypothyroidism, unspecified
CPT/HCPCS: 87081; 87880; 99213; G0463

== ENCOUNTER 2023-03-07 20:32 | Emergency (ER) | payer OTHER, SELFPAY ==
[2023-03-07 20:39] VITALS: BP 119/68; PULSE 102; RESP 18; TEMP 36.4; O2SAT 99
[2023-03-07 21:37] LABS: Influenza A QL RT-PCR Negative (Negative); Influenza B QL RT-PCR Negative (Negative); SARS-CoV-2 RNA PCR Negative (Negative)
[2023-03-08 01:47] VITALS: BP 117/82; PULSE 73; RESP 17; TEMP 36.3; O2SAT 100
[2023-03-08 02:41] VITALS: BP 128/60; PULSE 87; RESP 16; O2SAT 98
[2023-03-08 02:42] VITALS: BP 128/60; O2SAT 99
[2023-03-08 03:31] VITALS: BP 127/66; O2SAT 98
--- NOTE | 2023-03-08 03:35 | ED.URI ---
HPI - URI/Sore Throat General Chief Complaint: Upper Respiratory Infection Stated Complaint: [id number], GONG, n/v Time Seen by Provider: 03/08/23 03:22 History of Present Illness HPI Narrative: Patient presents to the emergency department with persistent upper respiratory congestion. She has had a persistent cough sinus pressure and postnasal drip for the past 3 weeks. Couple days ago she started having headaches today headache persistent despite ibuprofen and Tylenol at home. Patient has also had diarrhea 2-day. Denies fevers and chills. Related Data Home Medications Medication Instructions Recorded Confirmed levothyroxine 100 mcg tablet 100 mcg PO DAILY 01/29/23 01/29/23 levothyroxine 175 mcg tablet 175 mcg PO DAILY 01/29/23 01/29/23 Allergies Allergy/AdvReac Type Severity Reaction Status Date / Time No Known Allergies Allergy Verified 01/29/23 11:39 Review of Systems Review of Systems: Review of systems negative except what is documented in the HPI [facility] Past Medical History Medical History ADHD Crohn disease Hx of fracture of humerus right Hypothyroid Surgical History Surgical History Hx of tonsillectomy Family History Family History Grandparent Diabetes mellitus Hypertension Mother Hypertension Hypothyroid Social History Social History Smoking status: Never smoker Substance use: never Living arrangements: with family Gender identity (if verbalized by the patient): Female Spiritual care concerns: No Exam Narrative: GENERAL: Well-appearing, well-nourished, and in no acute distress. HEAD: Normocephalic, atraumatic. EYES: PERRLA and EOMI. ENT: Nares clear, no rhinorrhea or epistaxis. Mucous membranes moist. NECK: Supple. CHEST: Clear to auscultation. No respiratory distress. HEART: Regular rate and rhythm. ABDOMEN: Soft, nontender, nondistended. EXTREMITIES: Normal range of motion. No edema. SKIN: Warm, dry, no rash. NEURO: No focal deficits. Alert and oriented x3. PSYCH: Normal mood and affect. Course Course Emergency Course: Exam grossly benign. Lungs clear to auscultation. No hypoxemia. Fioricet and ibuprofen ordered for headache. We will plan for discharge once headache improved Vital Signs Vital signs: Vital Signs Temperature 36.4 C L 03/07/23 20:39 Pulse Rate 102 H 03/07/23 20:39 Respiratory Rate 18 03/07/23 20:39 Blood Pressure 119/68 03/07/23 20:39 Pulse Oximetry 99 03/07/23 20:39 Oxygen Delivery Room Air 03/07/23 20:39 Temperature 36.3 C L 03/08/23 01:47 Pulse Rate 76 03/08/23 04:31 Respiratory Rate 16 03/08/23 04:31 Blood Pressure 125/69 03/08/23 04:31 Pulse Oximetry 97 03/08/23 04:31 Oxygen Delivery Room Air 03/08/23 02:41 MDM - URI/Sore Throat Lab Data Labs: Lab Results 03/07/23 Range/Units 20:47 Influenza A (RT-PCR) Negative (Negative) Influenza B (RT-PCR) Negative (Negative) SARS-CoV-2 RNA (RT-PCR) Negative (Negative) Discharge Plan Discharge Clinical Impression: Sinus congestion, Upper respiratory infection Headache Qualifiers: Headache type: other headache syndrome Qualified Code(s): G44.89 - Other headache syndrome Diarrhea Qualifiers: Diarrhea type: unspecified type Qualified Code(s): R19.7 - Diarrhea, unspecified Patient Disposition: Home, Self-Care Condition: Stable Instructions: Acute Headache (DC), Chronic Cough (ED), Cold Symptoms (ED) Additional Instructions: Drink plenty of fluids Tylenol and ibuprofen for headache Fioricet as needed for breakthrough headache May add Benadryl for breakthrough discomfort Follow-up with your primary care provider Prescriptions: No Action levothyroxine 175 mcg t
[2023-03-08] MEDS: ACETAMINOPHEN/BUTALBITAL/CAFFEINE 325-50-40 MG TABLET (FIORICET) 1 TAB PO (03:55)
[2023-03-08] MEDS: IBUPROFEN 600 MG TABLET PO (03:55)
[2023-03-08 04:01] VITALS: BP 118/60; O2SAT 99
[2023-03-08 04:31] VITALS: BP 125/69; PULSE 76; RESP 16; O2SAT 97
== END 2023-03-08 05:31 | disposition home or self-care (01) ==
PROVIDERS: Emergency Provider Emergency Medicine; PCP Family Medicine
DX: J06.9 Acute upper respiratory infection, unspecified (principal); G44.89 Other headache syndrome; R19.7 Diarrhea, unspecified; R09.81 Nasal congestion; Z20.822 Contact with and (suspected) exposure to COVID-19; K50.90 Crohn's disease, unspecified, without complications; E03.9 Hypothyroidism, unspecified
CPT/HCPCS: 87636; 99283; A9270

== ENCOUNTER 2023-06-16 10:15 | Emergency (ER) | payer OTHER, SELFPAY ==
--- NOTE | 2023-06-16 10:27 | ED.URI ---
HPI - URI/Sore Throat General Chief Complaint: Upper Respiratory Infection Stated Complaint: Sore Throat Time Seen by Provider: 06/16/23 10:53 Source: patient and RN notes reviewed Mode of arrival: ambulatory Limitations: no limitations History of Present Illness HPI Narrative: 23-year-old female presents with concern for sore throat, nasal congestion, headache that started 3 days ago. She reports using cough drops and ibuprofen. Denies fever. 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 throat and nasal congestion Related Data Home Medications Medication Instructions Recorded Confirmed levothyroxine 100 mcg tablet 100 mcg PO DAILY 01/29/23 06/16/23 levothyroxine 175 mcg tablet 175 mcg PO DAILY 01/29/23 06/16/23 certolizumab pegol 400 mg/2 mL 200 mg subcut WEEKLY 06/16/23 06/16/23 (200 mg/mL x2) subcutaneous syringe kit (Cimzia) mercaptopurine 50 mg tablet 50 mg PO DAILY 06/16/23 06/16/23 Allergies Allergy/AdvReac Type Severity Reaction Status Date / Time No Known Allergies Allergy Verified 06/16/23 10:38 Review of Systems Review of Systems: CONSTITUTIONAL: Denies malaise, chills, sweats, or fever. EYES: Denies visual changes, redness, or discharge. ENT: Reports rhinorrhea, congestion, and sore throat. CARDIOVASCULAR: Denies chest pain, palpitations, or edema. RESPIRATORY: Denies cough. Denies dyspnea. GASTROINTESTINAL: Denies abdominal pain, nausea, vomiting, diarrhea SKIN: Denies rash or itching. MUSCULOSKELETAL: Denies myalgia. NEUROLOGIC: Reports headache. All systems reviewed & are unremarkable except as noted in HPI and below PMFSH Past Medical History Medical History ADHD Crohn disease Hx of fracture of humerus right Hypothyroid Surgical History Surgical History Hx of tonsillectomy Family History Family History Grandparent Diabetes mellitus Hypertension Mother Hypertension Hypothyroid Social History Social History Smoking status: Never smoker Substance use: never Living arrangements: with family Gender identity (if verbalized by the patient): Female Spiritual care concerns: No Comments At time of signature, agree with nursing past medical, surgical, social and family history. There is no relevant family history pertinent to the presenting complaint Exam Narrative: GENERAL: Well-appearing, well-nourished, and in no acute distress. HEAD: Normocephalic EYES: PERRLA, conjunctivae clear ENT: Nares clear, turbinates edematous and erythematous, clear discharge. Mucous membranes moist. TM pearly vega with dull light reflex bilaterally; no tragal tenderness. Oropharynx not erythematous without lesions. Tonsils not enlarged and without exudate, no drooling, no hoarseness, no trismus, uvula midline. NECK: Supple. No lymphadenopathy CHEST: Clear to auscultation, breath sounds equal. No wheezing, rhonchi, rales, or stridor. No respiratory distress, speaks in full sentences. HEART: Regular rate and rhythm. No murmur heard. SKIN: Warm, dry, no rash. NEURO: Alert and oriented x3. PSYCH: Normal mood and affect Course Course Emergency Course: Patient is aware of diagnosis, understands and agrees to treatment plan. Anticipatory guidance given. Patient agrees to follow-up as directed and is aware of reasons to seek care at the emergency department. Portions of this record may have been created with voice recognition software Level of Care: Express Care Visit Vital Signs Vital signs: Reviewed. MDM - URI/Sore Throat MDM Narrative Medical decision making narrative: Differential diagnosis considered: Morris virus, strep pharyngitis, allergic rhinitis, upper respiratory tract infection, sinusitis, rhinosinusitis, nasopharyngitis. viral
[2023-06-16 10:30] VITALS: BP 105/62; PULSE 82; RESP 20; TEMP 36.7; O2SAT 99
[2023-06-16 10:45] VITALS: BP 105/62; PULSE 82; RESP 20; TEMP 36.7; O2SAT 99
== END 2023-06-16 11:02 | disposition home or self-care (01) ==
PROVIDERS: Emergency Provider Nurse Practitioner; PCP Family Medicine
DX: J06.9 Acute upper respiratory infection, unspecified (principal); E03.9 Hypothyroidism, unspecified; Z79.899 Other long term (current) drug therapy
CPT/HCPCS: 87081; 87880; 99213; G0463

== ENCOUNTER 2023-08-20 21:40 | Emergency (ER) | payer OTHER, SELFPAY ==
[2023-08-20 21:52] VITALS: BP 121/70; PULSE 66; RESP 15; TEMP 36.5; O2SAT 100
--- NOTE | 2023-08-20 23:08 | PC.NURSE ---
Report received from ABIGAIL Benson. Assumed care of patient at this time.
--- NOTE | 2023-08-21 00:03 | ED.GENADULT ---
HPI - General Adult General Chief complaint: Dental/Oral Stated complaint: dental pain Time Seen by Provider: 08/20/23 23:20 History of Present Illness HPI narrative: Patient 23-year-old female who presents emergency department with chief complaint of dental pain. The patient reports she has a right lower molar that has developed a large cavity in it and was seen by Dentistry and was told to take an antibiotic patient states that the antibiotic did not improve her symptoms in a day and a half and she stop taking the amoxicillin the patient reports the pain is continued denies fever reports that she has a headache from the os. Related Data Home Medications Medication Instructions Recorded Confirmed levothyroxine 100 mcg tablet 100 mcg PO DAILY 01/29/23 06/16/23 levothyroxine 175 mcg tablet 175 mcg PO DAILY 01/29/23 06/16/23 certolizumab pegol 400 mg/2 mL 200 mg subcut WEEKLY 06/16/23 06/16/23 (200 mg/mL x2) subcutaneous syringe kit (Cimzia) mercaptopurine 50 mg tablet 50 mg PO DAILY 06/16/23 06/16/23 Allergies Allergy/AdvReac Type Severity Reaction Status Date / Time No Known Allergies Allergy Verified 06/16/23 10:38 Review of Systems Review of Systems: A 10 system review of systems was completed on the patient and is negative except for what is stated in the HPI. Nursing and ancillary documentation was reviewed. PMFSH Past Medical History Medical History ADHD Crohn disease Hx of fracture of humerus right Hypothyroid Surgical History Surgical History Hx of tonsillectomy Family History Family History Grandparent Diabetes mellitus Hypertension Mother Hypertension Hypothyroid Social History Social History Smoking status: Never smoker Substance use: never Living arrangements: with family Gender identity (if verbalized by the patient): Female Spiritual care concerns: No Exam Narrative: GENERAL: Well-appearing, well-nourished, and in no acute distress. HEAD: Normocephalic, atraumatic. EYES: PERRLA and EOMI. ENT: Nares clear, no rhinorrhea or epistaxis. Mucous membranes moist., no trismus, no necrotic tissue. There is a large cavity present in the right lower molar there is no fluctuance. There is no crepitance NECK: Supple. CHEST: Clear to auscultation. No respiratory distress. HEART: Regular rate and rhythm. No murmur heard. Normal peripheral pulses. ABDOMEN: Soft, nontender, nondistended, normal active bowel sounds. EXTREMITIES: Normal range of motion. No edema. SKIN: Warm, dry, no rash. NEURO: No focal deficits. Alert and oriented x3. PSYCH: Normal mood and affect. Course Vital Signs Vital signs: Vital Signs Temperature 36.5 C 08/20/23 21:52 Pulse Rate 66 08/20/23 21:52 Respiratory Rate 08/20/23 21:52 Blood Pressure 121/70 08/20/23 21:52 Pulse Oximetry 100 08/20/23 21:52 Oxygen Delivery Room Air 08/20/23 21:52 Temperature 36.5 C 08/20/23 21:52 Pulse Rate 66 08/20/23 21:52 Respiratory Rate 08/20/23 21:52 Blood Pressure 121/70 08/20/23 21:52 Pulse Oximetry 100 08/20/23 21:52 Oxygen Delivery Room Air 08/20/23 21:52 Procedures Other Procedure Procedure 1: Other Procedure: Dental block after informed consent 3 mL 2% lidocaine without epinephrine was infiltrated around the affected tooth. Patient had improvement in her pain. There were no complications Medical Decision Making MDM Narrative Medical decision making narrative: Differential diagnosis includes dental caries, dental abscess, without antalgia. Patient shows no signs of Nikolai's angina, no evidence of systemic infection. Patient's pain was controlled with a dental block and the patient w
[2023-08-21 00:14] VITALS: BP 135/78; PULSE 70; RESP 17; TEMP 36.5; O2SAT 99
== END 2023-08-21 00:15 | disposition home or self-care (01) ==
PROVIDERS: Emergency Provider Emergency Medicine; PCP Family Medicine
DX: K02.9 Dental caries, unspecified (principal); K50.90 Crohn's disease, unspecified, without complications; E03.9 Hypothyroidism, unspecified; F90.9 Attention-deficit hyperactivity disorder, unspecified type
CPT/HCPCS: 64999; 99283

== ENCOUNTER 2023-09-24 14:21 | Emergency (ER) | payer OTHER, SELFPAY ==
[2023-09-24 14:24] VITALS: BP 123/64; PULSE 85; RESP 16; TEMP 36.2; O2SAT 100
--- NOTE | 2023-09-24 17:12 | ED_ITS ---
HPI - Back Pain/Injury General Chief Complaint: Back Pain/Injury Stated Complaint: low back pain Time Seen by Provider: 09/24/23 16:57 Source: patient Mode of arrival: ambulatory Limitations: no limitations History of Present Illness HPI Narrative: Patient is a 23-year-old female who presents to the ED with report of lower back pain. Patient is and currently 16 weeks gestation. Patient reports having intermittent lower back pain for the last 3 days. States pain has been worsening, worse with any type of movement. 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 Denies radiation of pain. Denies bowel or bladder incontinence. Denies numbness. Denies urinary complaints. Denies abdominal pain, vaginal bleeding. She is feeling baby move. OBGYN is Dr. Larson. She has appointment with Dr. Larson on Wednesday. Patient has not taken anything for pain. Related Data Home Medications Medication Instructions Recorded Confirmed levothyroxine 100 mcg tablet 100 mcg PO DAILY 01/29/23 06/16/23 levothyroxine 175 mcg tablet 175 mcg PO DAILY 01/29/23 06/16/23 certolizumab pegol 400 mg/2 mL 200 mg subcut WEEKLY 06/16/23 06/16/23 (200 mg/mL x2) subcutaneous syringe kit (Cimzia) mercaptopurine 50 mg tablet 50 mg PO DAILY 06/16/23 06/16/23 Allergies Allergy/AdvReac Type Severity Reaction Status Date / Time No Known Allergies Allergy Verified 09/24/23 15:31 Review of Systems Review of Systems: CONSTITUTIONAL: Denies fever, chills, or sweats. GASTROINTESTINAL: Denies abdominal pain, nausea, vomiting, or diarrhea. GENITOURINARY: Denies dysuria or hematuria. MUSCULOSKELETAL: See HPI. NEUROLOGIC: Denies headache, dizziness, numbness, or weakness. All systems reviewed & are unremarkable except as noted in HPI and below PMFSH Past Medical History Medical History ADHD Crohn disease Hx of fracture of humerus right Hypothyroid Surgical History Surgical History Hx of tonsillectomy Family History Family History Grandparent Diabetes mellitus Hypertension Mother Hypertension Hypothyroid Social History Social History Smoking status: Never smoker Substance use: never Living arrangements: with family Gender identity (if verbalized by the patient): Female Spiritual care concerns: No Exam Narrative: GENERAL: Well appearing, morbidly obese with BMI of 42.3, non-toxic, in no acute distress. HEAD: Normocephalic, atraumatic. RESPIRATORY: Airway patent, respirations nonlabored. CARDIOVASCULAR: Regular rate and rhythm ABDOMINAL: Soft, uterus gravid, no tenderness throughout abdomen, nondistended. Normoactive BS. MUSCULOSKELETAL: Moves all extremities. No gross deformities. Mild bilateral paraspinal muscle tenderness throughout lumbar region. No midline spinal tenderness. Sensation intact. SKIN: Warm, dry, normal color. NEURO: A&O X3. Speech clear. PSYCHIATRIC: Appropriate mood and affect. Normal interaction. Course Vital Signs Vital signs: Vital Signs Temperature 97.1 F L 09/24/23 14:24 Pulse Rate 85 09/24/23 14:24 Respiratory Rate 16 09/24/23 14:24 Blood Pressure 123/64 09/24/23 14:24 Pulse Oximetry 100 09/24/23 14:24 Oxygen Delivery Room Air 09/24/23 14:24 Temperature 97.9 F 09/24/23 18:20 Pulse Rate 80 09/24/23 18:20 Respiratory Rate 99 H 09/24/23 18:20 Blood Pressure 110/68 09/24/23 18:20 Pulse Oximetry 15 L 09/24/23 18:20 Oxygen Delivery Room Air 09/24/23 14:24 MDM - Back Pain/Injury MDM Narrative Medical decision making narrative: Patient presented to ED with 3 day history of lower back pain, currently 16 weeks gestation. Has not tried anything for pain. Neurovascularly intact. No evidence of cord compression or cauda equina at this time. No red flag symptoms. No abdominal pain or vaginal bleeding. She is feeling baby move. I utilized bedside ultrasound and was able to visualize movement with appropriate heart activity. Urinalysis was without evidence for infection. No injury or midline spinal tenderness to suggest need for further imaging at this time. Patient given Tylenol in the ED. Advised pain medication is limited in . Recommended patient continue Tylenol as needed for pain, recommend ice/heat, also prescribe lidocaine patches. Recommended close follow-up with OBGYN for further evaluation. Given return precautions. Discharged in stable condition. Medical Records Attestation: I reviewed the patient's medical records. Lab Data Attestation: I reviewed the patient's lab results. Labs: Lab Results 09/24/23 Range/Units 17:20 Urine Color Yellow (Yellow) Urine Appearance Clear (Clear) Urine pH 6.5 (5.0-9.0) Ur Specific [place] 1.008 (1.001-1.035) Urine Protein Negative (Negative) mg/dL Urine Glucose (UA) Negative (Negative) mg/dL Urine Ketones Negative (Negative) mg/dL Ur Blood (Man) Negative (Negative) Urine Nitrate Negative (Negative) Urine Bilirubin Negative (Negative) Urine Urobilinogen 0.2 (<2.0) mg/dL Leukocyte Esterase Rfl Trace H (Negative) ISELA/UL Urine RBC 0-2 (0-2) /hpf Urine WBC 0-5 (0-3) /hpf Ur Squamous Epith Cells Few (Few) /hpf Urine Bacteria Rare /hpf Urine Casts 0-2 UCG Bedside Result Positive Reference Range: Negative Discharge Plan Discharge Clinical Impression: 16 weeks gestation of Strain of lumbar region Qualifiers: Encounter type: initial encounter Qualified Code(s): S39.012A - Strain of muscle, fascia and tendon of lower back, initial encounter Patient Disposition: Home, Self-Care Condition: Stable Instructions: Antibiotic Form, Acute Low Back Pain (ED), Lower Back Exercises (ED) Additional Instructions: Continue Tylenol as needed for pain. Utilize Lidocaine patches to area of pain. Recommend rest, ice, heat, limiting strenuous activity. Follow-up with your OBGYN for further evaluation. Return to the ED if you experience worsening or severe pain, numbness in groin, incontinence of urine or stool, recurrent injury, weakness, abdominal pain, vaginal bleeding, or any other symptoms of concern. Prescriptions: New lidocaine 5 % adhesive patch,medicated 1 patch topical DAILY Qty: 15 0RF Rx Instructions: leave on most painful area for up to 12 hrs No Action levothyroxine 175 mcg tablet 175 mcg PO DAILY levothyroxine 100 mcg tablet 100 mcg PO DAILY mercaptopurine 50 mg tablet 50 mg PO DAILY Cimzia 400 mg/2 mL (200 mg/mL x 2) syringe kit 200 mg SUBCUT WEEKLY pseudoephedrine HCl [12 Hour Decongestant] 120 mg tablet extended release 120 mg PO Q12H PRN (Reason: nasal congestion) Qty: 20 0RF clindamycin HCl 300 mg capsule 300 mg PO Q6H 7 Days Qty: 28 0RF Follow-up/Referrals: Dorita Larson MD [Physician] - (OBGYNDayday Curtis,Mila Louise MD [Primary Care Provider] - Time of Disposition: 17:54
[2023-09-24] MEDS: ACETAMINOPHEN 500 MG TABLET 1000 MG PO (17:14)
[2023-09-24 17:32] LABS: Appearance Urine Clear (Clear); Bacteria Urine Rare /hpf; Bilirubin Urine Negative (Negative); Blood Urine Negative (Negative); Color Urine Yellow (Yellow); Glucose Urine UA Negative (Negative); Ketones Urine Negative (Negative); Leukocyte Esterase Ur Trace LEU/UL (Negative); Nitrate Urine Negative (Negative); Non Pathogenic Casts 0-2; Protein Urine Negative (Negative); RBC Urine 0-2 /hpf (0-2); Specific Grav Ur 1.008 (1.001-1.035); Squamous Epithelial Cell Urine Few /hpf (Few); Urobilinogen Urine 0.2 mg/dL (<2.0); WBC Urine 0-5 /hpf (0-3); pH Urine 6.5 (5.0-9.0)
[2023-09-24 17:42] LABS: Add Urine Microscopic? YES
[2023-09-24 18:20] VITALS: BP 110/68; PULSE 80; RESP 99; TEMP 36.6; O2SAT 15
== END 2023-09-24 18:22 | disposition home or self-care (01) ==
PROVIDERS: Emergency Provider Physician Assistant; PCP Family Medicine
DX: O9A.212 Injury, poisoning and certain other consequences of external causes complicating pregnancy, second trimester (principal); S39.012A Strain of muscle, fascia and tendon of lower back, initial encounter; O99.612 Diseases of the digestive system complicating pregnancy, second trimester; K50.90 Crohn's disease, unspecified, without complications; O99.282 Endocrine, nutritional and metabolic diseases complicating pregnancy, second trimester; E03.9 Hypothyroidism, unspecified; Z3A.16 16 weeks gestation of pregnancy; X58.XXXA Exposure to other specified factors, initial encounter
CPT/HCPCS: 81001; 81025; 99283; A9270

== ENCOUNTER 2023-12-19 13:24 | Observation (INO) | payer OTHER, SELFPAY ==
[2023-12-19 13:58] LABS: Appearance Urine Cloudy (Clear); Bacteria Urine 3+ /hpf; Bilirubin Urine Negative (Negative); Blood Urine Negative (Negative); Color Urine Yellow (Yellow); Glucose Urine UA Negative (Negative); Ketones Urine Negative (Negative); Leukocyte Esterase Ur 2+ LEU/UL (Negative); Nitrate Urine Negative (Negative); Non Pathogenic Casts 0-2; Protein Urine Negative (Negative); RBC Urine 0-2 /hpf (0-2); Specific Grav Ur 1.019 (1.001-1.035); Squamous Epithelial Cell Urine Many /hpf (Few)
--- NOTE | 2023-12-19 13:58 | OBADM ---
This patient, Silvia Kern, admitted to the OB room OB Post 113 for observation. Patient/family oriented to hospital policies and general routines including ID bracelet, bed and alarms, visiting hours, pain management, procedures, bathroom and other care routines, personal items, smoking policy, room service/diet, and visiting hours. Patient/Family are encouraged to report perceived risks to care and to ask questions if they do not understand what they are told or what they should do.
[2023-12-19 14:03] LABS: Add Urine Microscopic? YES
[2023-12-19 14:31] LABS: SARS-CoV-2 RNA PCR Negative (Negative)
[2023-12-19 14:40] VITALS: TEMP 36.6
--- NOTE | 2023-12-19 15:15 | PC.NURSE ---
1434--Reported labs and pt condition to Dr. Larson. Prescription sent for Macrobid. DC orders given.
--- NOTE | 2024-01-16 21:34 | PM.OBTRLD ---
OB - Triage/Final Diagnosis Visit Information Comments/Additional reasons for admission: I have assessed the risk for this patient, Silvia Kern, and determined that she would benefit from observation care. Evaluation Laboratory results: Laboratory Tests 12/19/23 13:37 Urine Color Yellow Urine Appearance Cloudy H Urine pH 7.0 Ur Specific [place] 1.019 Urine Protein Negative Urine Glucose (UA) Negative Urine Ketones Negative Ur Blood (Man) Negative Urine Nitrate Negative Urine Bilirubin Negative Urine Urobilinogen 1.0 Leukocyte Esterase Rfl 2+ H Urine RBC 0-2 Urine WBC 6-10 H Ur Squamous Epith Cells Many H Urine Bacteria 3+ H Urine Casts 0-2 SARS-CoV-2 RNA (RT-PCR) Negative Final Diagnosis (1) Abdominal pain: Code(s): R10.9 - Unspecified abdominal pain Status: Acute
== END 2023-12-19 14:53 | disposition home or self-care (01) ==
PROVIDERS: Admitting Provider Obstetrics & Gynecology; PCP Family Medicine; Visit Provider Obstetrics & Gynecology
DX: O26.893 Other specified pregnancy related conditions, third trimester (principal); R10.9 Unspecified abdominal pain; O99.891 Other specified diseases and conditions complicating pregnancy; J02.9 Acute pharyngitis, unspecified; Z20.822 Contact with and (suspected) exposure to COVID-19
CPT/HCPCS: 81001; 87086; 87635; G0378; G0379

== ENCOUNTER 2024-03-07 10:29 | Outpatient (CLI) | payer OTHER, SELFPAY ==
[2024-03-07 11:05] LABS: Basophils Percent Auto 0.2 % (0.2-1.2); Eosinophils Percent Auto 0.3 % (0-4.4); Hematocrit 33.4 % (37.0-47.0); Hemoglobin 10.8 g/dL (12.0-15.0); Immature Granulocyte Absolute 0.06 K/mm3 (0.00-0.031); Immature Granulocyte Percent A 0.6 % (0-0.5); Lymphocytes Absolute Auto 2.32 K/mm3 (0.9-3.2); Lymphocytes Percent Auto 24.7 % (18.3-44.2); Mean Corpuscular HGB Conc 32.3 g/dl (32-36); Mean Corpuscular Hemoglobin 29.3 pg (26-34); Mean Corpuscular Volume 90.5 fl (80-100); Mean Platelet Volume 11.6 fl (7.4-10.4); Monocytes Absolute Auto 0.5 K/mm3 (0.1-0.6); Monocytes Percent Auto 5.8 % (2.6-8.5); Neutrophils Absolute Auto 6.4 K/mm3 (1.3-6.7); Neutrophils Percent Auto 68.4 % (45.5-73.1); Platelet Count Result 169 k/mm3 (150-375); Red Blood Count 3.69 M/mm3 (4.2-5.4); Red Cell Distribution Width 13.8 % (11.5-14.5); White Blood Count 9.4 K/mm3 (4.5-10.0)
[2024-03-07 11:55] LABS: HIV 1/2 Ab P24 Ag Result Negative (Negative)
[2024-03-07 12:19] LABS: Rapid Plasma Reagin Non-Reactive (NonReactive)
== END 2024-03-07 10:30 | disposition home or self-care (01) ==
PROVIDERS: PCP Family Medicine; Visit Provider Obstetrics & Gynecology
DX: Z01.818 Encounter for other preprocedural examination (principal)
CPT/HCPCS: 36415; 85025; 86592; 86703; 86850; 86900; 86901; G0432

== ENCOUNTER 2024-03-08 09:52 | Inpatient (IN) | payer OTHER, SELFPAY ==
[2024-03-08] VITALS (49 sets, daily range): BP systolic 94–123; BP diastolic 49–72; PULSE 44–92; RESP 12–20; TEMP 36.2–37.1; O2SAT 95–100; BMI 44.9
[2024-03-08] MEDS: LACTATED RINGERS 1,000 ML 125 ML IV CONT ×2 (10:21→11:23)
[2024-03-08] MEDS: ACETAMINOPHEN 500 MG TABLET 1000 MG PO (10:21)
--- NOTE | 2024-03-08 10:54 | LDADM ---
This patient, Silvia Kern, was admitted to Labor/Delivery/Recovery 120 on 03/08/24 at 09:52. Plans for pain management and were discussed with patient. Patient/family oriented to hospital policies and general routines including ID bracelet, bed and alarms, visiting hours, pain management, procedures, bathroom and other care routines, personal items, smoking policy, room service/diet and guest tray routines, infant security routines, and visiting hours. Patient/Family are encouraged to report perceived risks to care and to ask questions if they do not understand what they are told or what they should do. See OBIX for further documentation.
--- NOTE | 2024-03-08 11:14 | P.PNAN_ITS ---
Anes - Initial Pre Proc Eval Procedure: Operation Date: 03/08/24 12:00 Proposed Procedures p Section - Mik Barriga MD Date/Time: 03/08/24 11:14 Surgeon: Mik Barriga MD Pre Op Diagnosis: c section Patient Data Age: 24 Gender: F Height: 1.7 m Weight: 130 kg Last Vital Signs Temp 36.7 C 03/08/24 10:49 Pulse 87 03/08/24 10:49 Resp 16 03/08/24 10:49 BP 123/63 03/08/24 10:49 Pulse Ox 99 03/08/24 10:10 O2 Del Method Room Air 03/08/24 10:49 Allergies Allergy/AdvReac Type Severity Reaction Status Date / Time No Known Allergies Allergy Verified 03/08/24 10:25 Home Medications Medication Instructions Recorded Confirmed Type levothyroxine 100 mcg tablet 100 mcg PO DAILY 01/29/23 02/14/24 History levothyroxine 175 mcg tablet 175 mcg PO DAILY 01/29/23 02/14/24 History certolizumab pegol 400 mg/2 mL 400 mg subcut WEEKLY 06/16/23 02/14/24 History (200 mg/mL x2) subcutaneous syringe kit (Cimzia) 1 tablet PO QHS 03/08/24 03/08/24 History Patient hx anesthesia problems: none Family hx anesthesia problems: none Results Review: All pre-operative results and documents have been reviewed as part of the pre- operative evaluation. [facility] Past Medical History Medical History (Updated 03/08/24 @ 11:14 by Brent Rangel MD) ADHD Crohn disease Hx of fracture of humerus right Hypothyroid Morbid obesity Surgical History Surgical History History of section Hx of tonsillectomy Family History Family History Grandparent Diabetes mellitus Hypertension Mother Hypertension Hypothyroid Social History Social History Smoking status: Current every day smoker Tobacco type: e-cigarettes/vaping Second hand tobacco smoke exposure: No Substance use: never Do You Feel Safe in your Home?: Yes Lack of Transportation: No Lack of Food: Never True Current Housing: I Have Housing Concerned About Future Housing: No Difficulty Paying Gas/Electric Bills: No Difficulty Paying for Meds: No Currently Unemployed: No Education: High School Diploma/GED Difficulty w/ Childcare or Family Care: No Living arrangements: with family Gender identity (if verbalized by the patient): Female Spiritual care concerns: No Anes - Eval Final PreProcedure Day of Procedure 03/08/24 11:14 Patient weight: morbidly obese Heart: regular rate and rhythm Lungs: clear to auscultation Airway: Mallampati scale class II Neurological: alert and oriented Last oral intake: >/= 8 hours ASA classification: III Emergent: no Anesthetic plan: proceed Anesthesia type and monitoring: regional spinal and standard monitoring Results Review: All pre-operative results and documents have been reviewed as part of the pre- operative evaluation. Informed Consent: The patient's anesthetic plan and its attendant risks and benefits were discussed with the patient/family/POA. Questions were solicited and answers provided to the satisfaction of the patient/family/POA.
[2024-03-08] MEDS: ONDANSETRON INJ 4 MG/2 ML VIAL IV PUSH (11:35)
[2024-03-08] MEDS: FAMOTIDINE 20 MG/2 ML VIAL IV PUSH (11:35)
[2024-03-08] MEDS: ceFAZolin 3 GM/D5W 100 ML 100 ML IVPB (12:10)
--- NOTE | 2024-03-08 12:15 | PM.IMHP ---
H&P: HPI History of Present Illness Date/Time: 03/08/24 12:15 Chief Complaint: repeat c section, suspected LGA fetus Narrative: Patient is a 24 year old who presents for repeat c section. Her has been complicated by prior c section for failure to progress wtih 9lb baby. Most recent EFW was 4500g at 39 weeks. She also has a history of Crohns disease and hx of LSO for ovarian cyst. She denies strong contractions, LOF or VB. GOod movement. Review of Systems Review of Systems: All systems reviewed & are unremarkable except as noted in HPI and below PMFSH Past Medical History Medical History (Updated 03/08/24 @ 12:18 by Mik Barriga MD) ADHD Crohn disease Hx of fracture of humerus right Hypothyroid Morbid obesity Surgical History Surgical History History of section Hx of tonsillectomy Family History Family History Grandparent Diabetes mellitus Hypertension Mother Hypertension Hypothyroid Social History Social History Smoking status: Current every day smoker Tobacco type: e-cigarettes/vaping Second hand tobacco smoke exposure: No Substance use: never Do You Feel Safe in your Home?: Yes Lack of Transportation: No Lack of Food: Never True Current Housing: I Have Housing Concerned About Future Housing: No Difficulty Paying Gas/Electric Bills: No Difficulty Paying for Meds: No Currently Unemployed: No Education: High School Diploma/GED Difficulty w/ Childcare or Family Care: No Living arrangements: with family Gender identity (if verbalized by the patient): Female Spiritual care concerns: No Meds Home Medications and Allergies Home Medications Medication Instructions Recorded Confirmed Type levothyroxine 100 mcg tablet 100 mcg PO DAILY 01/29/23 02/14/24 History levothyroxine 175 mcg tablet 175 mcg PO DAILY 01/29/23 02/14/24 History certolizumab pegol 400 mg/2 mL 400 mg subcut WEEKLY 06/16/23 02/14/24 History (200 mg/mL x2) subcutaneous syringe kit (Cimzia) 1 tablet PO QHS 03/08/24 03/08/24 History Allergies Allergy/AdvReac Type Severity Reaction Status Date / Time No Known Allergies Allergy Verified 03/08/24 10:25 Vital Signs Vital Signs - 24 hr 03/08/24 10:10 03/08/24 11:41 03/08/24 11:53 Temperature 97.7 F Pulse Rate 87 65 Respiratory Rate Blood Pressure 123/63 110/64 Pulse Oximetry 99 Oxygen Delivery 03/08/24 10:21 03/08/24 10:49 03/08/24 10:49 Temperature 98.1 F 98.1 F Pulse Rate 87 Respiratory Rate 16 Blood Pressure 123/63 Pulse Oximetry Oxygen Delivery Room Air Exam Const: General: comfortable and no acute distress HENMT: Mouth: Yes moist mucous membranes Resp: Effort & Inspection: normal respiratory effort Cardio: Rate: regular rate Extrem: General: normal to inspection Psych: Mental Status: mental status grossly normal Assessment and Plan Assessment and plan (1) Hx of section complicating : Code(s): O34.219 - Maternal care for unspecified type scar from previous delivery Status: Acute Assessment and Plan: - risks, benefits and alternatives of repeat c section vs TOLAC discussed with patient who desires to proceed with repeat c section (2) Macrosomia affecting management of mother: Code(s): O36.60X0 - Maternal care for excessive growth, unspecified trimester, not applicable or unspecified Status: Acute
[2024-03-08] MEDS: OXYTOCIN 30 UNITS/NS 500 ML 30 UNITS/500 ML BAG 125 UNITS IV CONT (14:43)
[2024-03-08] MEDS: diphenhydrAMINE HCl INJ 50 MG/ML VIAL 25 MG IV PUSH (14:49)
--- NOTE | 2024-03-08 15:57 | OBPPTRN ---
Patient transferred to post room #286 via stretcher. Support person present. Oriented to unit, room, information board, rooming in, admission packet and security measures. Patient verbalizes understanding.
[2024-03-08] MEDS: KETOROLAC 15 MG/ML VIAL (*BKC) IV PUSH (16:56)
[2024-03-08] MEDS: DOCUSATE SODIUM 100 MG CAPSULE PO (16:56)
[2024-03-08] MEDS: LIDOCAINE 5% PATCH 1 PATCH TRANSDERM (16:56)
[2024-03-08] MEDS: ACETAMINOPHEN 325 MG TABLET 650 MG PO (16:56)
[2024-03-08] MEDS: SIMETHICONE 80 MG TAB.CHEW PO (16:56)
[2024-03-08] MEDS: DEXTROSE 5%/0.45% SOD CHL 1,000 ML 125 ML IV CONT (20:20)
--- NOTE | 2024-03-08 22:53 | W.PM.OBCSD ---
OB - Delivery Note Procedure Delivery date: 03/08/24 Pre-op diagnosis: Macrosomia and Previous Delivery Post-op Diagnosis: Same Delivery monitor: External FHT Prior to decision for section, ACOG/SMFM labor guidelines were considered and discussed with the patient and staff. Decision made to proceed with the section.: Yes Procedure Performed: Repeat Secondary branch: low cervical, transverse Surgeon: Mik Barriga MD Anesthesia type: Spinal Description of Procedure/Findings: The patient was taken to the operating room where she was placed in the dorsal supine position with a leftward tilt. The electronic monitor was placed and heart rate was found to be reassuring. She was prepped and draped in the normal sterile fashion, and anesthesia was checked to be adequate. A Pfannenstiel skin incision was made with the scalpel and carried through to the underlying layer of fascia with the scalpel. The fascia was incised in the midline and the incision extended laterally with the Guajardo scissors. The superior aspect of the fascial incision was then grasped with Marquez clamps, elevated, and the underlying rectus muscles dissected off bluntly and with Guajardo scissors. Attention was then turned to the inferior aspect of the fascial incision, which in similar fashion was grasped, elevated, and the rectus muscles dissected off.? The rectus muscles were then in the midline, and the peritoneum entered bluntly. There were a large amount of filmy and thick adhesions between the peritoneum and the uterus. The peritoneal incision was extended superiorly and inferiorly with good visualization of the bladder. With the bladder blade providing retraction and visualization, the lower uterine segment was incised in a transverse fashion with the scalpel. The uterine incision was then extended laterally. The bladder blade was removed and the infant's head was elevated and delivered atraumatically. The remainder of the infant was then delivered without difficulty, and the infant's nose and mouth were suctioned with the bulb suction. The umbilical cord was doubly clamped and cut. The was then handed off to the waiting nursing staff. Specimens then obtained as listed below. The placenta was then removed manually and the uterus was exteriorized and cleared of all clots and debris. The uterine incision was repaired with 0-Monocryl in a running, interlocked fashion. The posterior cul-de-sac was manually cleared of all clots and debris. The uterus was returned to the abdomen. The gutters were then manually cleared of all clots and debris.? The uterine incision was visualized to be hemostatic. The fascia was reapproximated with 0-Vicryl in a running fashion. The subcutaneous tissues were irrigated with warmed normal saline, and hemostasis was assured. The subcutaneous tissue was greater than 2 cm and closed in a running fashion with 2-0 plain gut suture.? The skin was closed with 4-0 monocryl in a running subcuticular stitch. Fundal pressure was applied to express remaining intrauterine clots and debris. The patient tolerated the procedure well. Sponge, lap, and needle counts were correct times three per nursing. The patient was taken to the recovery room in stable condition. Pathology: None sent Complications: No immediate complications Condition: Stable Disposition: Floor [place] Baby Date of : 03/08/24 Gestational Age by Date: 39 gender: Female presentation: vertex Placenta delivery description: Expressed Cord Vessel Description: 3 Vessels and Delayed Cord Clamping
[2024-03-09] MEDS: LORATADINE 10 MG TABLET PO (01:04)
[2024-03-09] MEDS: KETOROLAC 15 MG/ML VIAL (*BKC) IV PUSH ×3 (01:04→13:10)
[2024-03-09] MEDS: ACETAMINOPHEN 325 MG TABLET 650 MG PO ×4 (01:04→19:36)
[2024-03-09 01:10] VITALS: BP 103/62; PULSE 59; RESP 18; TEMP 37; O2SAT 98
[2024-03-09 05:50] LABS: Basophils Percent Auto 0.2 % (0.2-1.2); Eosinophils Percent Auto 0.2 % (0-4.4); Hematocrit 28.8 % (37.0-47.0); Hemoglobin 9.4 g/dL (12.0-15.0); Immature Granulocyte Absolute 0.07 K/mm3 (0.00-0.031); Immature Granulocyte Percent A 0.7 % (0-0.5); Lymphocytes Absolute Auto 1.82 K/mm3 (0.9-3.2); Lymphocytes Percent Auto 18.7 % (18.3-44.2); Mean Corpuscular HGB Conc 32.6 g/dl (32-36); Mean Corpuscular Hemoglobin 29.6 pg (26-34); Mean Corpuscular Volume 90.6 fl (80-100); Mean Platelet Volume 12.1 fl (7.4-10.4); Monocytes Absolute Auto 0.7 K/mm3 (0.1-0.6); Monocytes Percent Auto 6.9 % (2.6-8.5); Neutrophils Absolute Auto 7.2 K/mm3 (1.3-6.7); Neutrophils Percent Auto 73.3 % (45.5-73.1); Platelet Count Result 127 k/mm3 (150-375); Red Blood Count 3.18 M/mm3 (4.2-5.4); Red Cell Distribution Width 13.9 % (11.5-14.5); White Blood Count 9.8 K/mm3 (4.5-10.0)
[2024-03-09] MEDS: DOCUSATE SODIUM 100 MG CAPSULE PO ×2 (07:13→17:54)
[2024-03-09] MEDS: POLYSACCHARIDE IRON COMPLEX 150 MG CAPSULE PO ×2 (07:13→17:54)
[2024-03-09] MEDS: SIMETHICONE 80 MG TAB.CHEW PO ×3 (07:13→17:54)
[2024-03-09] MEDS: MULTIVIT/MIN/PREN/FOL AC/IRON TABLET 1 TAB PO (07:13)
[2024-03-09 08:15] VITALS: BP 110/58; PULSE 71; RESP 16; TEMP 36.6; O2SAT 100
--- NOTE | 2024-03-09 08:44 | PM.OBPNVD ---
OB - PN: Subj Subjective Date/time seen: 03/09/24 08:44 Patient comments: no complaints, pain well controlled, tolerating diet and flatus present OB - PN: Obj Data Labs 03/09/24 05:36 Labs: Laboratory Results - last 24 hr 03/09/24 05:36 WBC 9.8 RBC 3.18 L Hgb 9.4 L Hct 28.8 L MCV 90.6 MCH 29.6 MCHC 32.6 RDW 13.9 Plt Count 127 L MPV 12.1 H Immature Gran % (Auto) 0.7 H Neut % (Auto) 73.3 H Lymph % (Auto) 18.7 [place] % (Auto) 6.9 Eos % (Auto) 0.2 Baso % (Auto) 0.2 Lymph # (Auto) 1.82 [place] # (Auto) 0.7 H Eos # (Auto) 0.0 Baso # (Auto) 0.0 Abs Immat Gran (auto) 0.07 H Absolute Neuts (auto) 7.2 H Absolute Nucleated RBC 0.000 Nucleated RBC % 0.0 OB - PN A/P Plan day: 1 Comments: Post Op LTCS - no problems, routine recovery Time Spent With Patient Time: Total time spent is greater than 50% in coordination of care (as documented) at patient's floor/unit and/or counseling patient: Exam Const: General: cooperative, healthy appearing, comfortable and no acute distress Resp: Auscultation: no crackles, no rales, no rhonchi and no wheezes Cardio: Rhythm: regular rhythm Heart sounds: no click and no murmurs GI: Inspection: non-distended Auscultation: normal bowel sounds Extrem: General: normal to inspection, no pedal edema and no calf tenderness
--- NOTE | 2024-03-09 10:04 | WPDANLDPN2 ---
Anes-Prog Note L&D Date/Time: 03/09/24 10:04 Comfortable throughout: section Neuraxial method: spinal Epidural/Spinal procedure site: clean & non-tender Neuro status: Neuro function grossly intact. Cardiovascular status: normal Respiratory status: normal Airway patency: baseline Mental status: baseline Post-Op hydration status: normal Vital Signs: Last Vital Signs Temp 36.6 C 03/09/24 08:15 Pulse 71 03/09/24 08:15 Resp 16 03/09/24 08:15 BP 110/58 L 03/09/24 08:15 Pulse Ox 100 03/09/24 08:15 O2 Del Method Room Air 03/09/24 07:15 Pain score (VAS): 1 I/O: Intake & Output 03/08/24 03/09/24 03/09/24 23:59 07:59 15:59 Intake Total 770 Output Total 145 1150 Balance -145 -380 Post-procedural complaints: none Patient feedback: Patient satisfied with anesthetic care.
--- NOTE | 2024-03-09 10:05 | WPDANLDNPN2 ---
Anes-Prog Note L&D-Neuraxial Date/Time: 03/09/24 10:05 Neuraxial medications: intrathecal PF morphine Opiod-related complaints: none Patient feedback: Patient satisfied with post-operative pain management.
[2024-03-09 12:04] VITALS: BP 115/52; PULSE 72; RESP 16; TEMP 36.7; O2SAT 100
--- NOTE | 2024-03-09 14:41 | WPDANLDPN2 ---
Anes-Prog Note L&D Date/Time: 03/09/24 14:41 Comfortable throughout: section Neuraxial method: spinal Epidural/Spinal procedure site: clean & non-tender Neuro status: Neuro function grossly intact. Cardiovascular status: normal Respiratory status: normal Airway patency: baseline Mental status: baseline Post-Op hydration status: normal Vital Signs: Last Vital Signs Temp 36.7 C 03/09/24 12:04 Pulse 72 03/09/24 12:04 Resp 16 03/09/24 12:04 BP 115/52 L 03/09/24 12:04 Pulse Ox 100 03/09/24 12:04 O2 Del Method Room Air 03/09/24 07:15 Pain score (VAS): 2 I/O: Intake & Output 03/08/24 03/09/24 03/09/24 23:59 07:59 15:59 Intake Total 770 480 Output Total 145 1150 300 Balance -145 -380 180 Post-procedural complaints: none Patient feedback: Patient satisfied with anesthetic care.
--- NOTE | 2024-03-09 14:41 | WPDANLDNPN2 ---
Anes-Prog Note L&D-Neuraxial Date/Time: 03/09/24 14:41 Patient feedback: Patient satisfied with post-operative pain management.
[2024-03-09] MEDS: IBUPROFEN 600 MG TABLET PO (19:36)
[2024-03-09 19:38] VITALS: BP 118/68; PULSE 74; RESP 16; TEMP 36.8; O2SAT 98
[2024-03-10] MEDS: IBUPROFEN 600 MG TABLET PO ×2 (01:30→08:47)
[2024-03-10] MEDS: ACETAMINOPHEN 325 MG TABLET 650 MG PO ×2 (01:30→08:47)
--- NOTE | 2024-03-10 07:30 | PM.OBPNVD ---
OB - PN: Subj Subjective Date/time seen: 03/10/24 07:30 Interval history: pp day 2 desires d/c home flatus present OB - PN: Obj Data Labs 03/09/24 05:36 OB - PN A/P Plan day: 2 Plan: routine care and discharge home Time Spent With Patient Time: Total time spent is greater than 50% in coordination of care (as documented) at patient's floor/unit and/or counseling patient: Review of Systems Review of Systems: All systems reviewed & are unremarkable except as noted in HPI and below Exam Const: General: cooperative, healthy appearing and comfortable Chest: Chest palpation & inspection: normal inspection of the chest GI: Other: incision CDI Back/Spine/Pelvis: Back: no CVA tenderness Skin: General skin exam: normal color
--- NOTE | 2024-03-10 07:33 | PM.OBDSVD ---
DS: Admitting Diagnosis Discharge Date 03/10/24 Admitting Diagnosis rpt DS: Discharge Diagnosis Discharge Diagnosis (1) Post-op pain: Code(s): G89.18 - Other acute postprocedural pain Status: Acute (2) Hx of section complicating : Code(s): O34.219 - Maternal care for unspecified type scar from previous delivery Status: Acute OB - DS: Summary OB Procedures : None OB Procedures Intrapartum: OB Procedures: : None Peripartum Data Procedures: Procedures Operation Date: 03/08/24 12:00 Actual Procedure Side Surgeon p Section Not Applicable Mik Barriga MD Time Spent with Patient Time attestation: Total time spent providing and/or coordinating discharge services: Discharge Plan Discharge Attending physician on discharge: Mik Barriga Discharging Clinician: Piedad Hernandez Patient Disposition: Home, Self-Care Activity: pelvic rest Diet: regular Patient Instructions: Antibiotic Form, How to Stop Smoking (GEN), Cigarette Smoking and Your Health (GEN), Secondhand Smoke Exposure in Children (ED), Electronic Cigarettes and Your Health (GEN) Stand Alone Forms: General Discharge Information Follow-up/Referrals: Mik Barriga MD [Physician] - 1 Week Discharge Medications: New hydrocodone-acetaminophen 5-325 mg Tablet 1 tablet PO Q3H PRN (Reason: Breakthrough Pain Rated 4-6) Qty: 30 0RF Continued levothyroxine 175 mcg tablet 175 mcg PO DAILY levothyroxine 100 mcg tablet 100 mcg PO DAILY Cimzia 400 mg/2 mL (200 mg/mL x 2) syringe kit 400 mg SUBCUT WEEKLY 1 tablet PO QHS Date of admission: 03/08/24 09:52 Primary Care Provider: Kirsten,Mila Louise Admitting Provider: Mik Barriga Attending physician on admission: Mik Barriga Condition: Stable
[2024-03-10 08:20] VITALS: BP 124/67; PULSE 76; RESP 16; TEMP 36.9; O2SAT 100
[2024-03-10] MEDS: POLYSACCHARIDE IRON COMPLEX 150 MG CAPSULE PO (08:46)
[2024-03-10] MEDS: MULTIVIT/MIN/PREN/FOL AC/IRON TABLET 1 TAB PO (08:46)
--- NOTE | 2024-03-10 19:49 | PC.NURSE ---
1100 Patient viewed the discharge video Mother & Baby Care, The First Two Weeks . Patient was given the opportunity and encouraged to ask questions. Patient verbalized understanding of information shared and has been given the mother/baby guide for home reference.
[2024-03-11 10:16] VITALS: BP 124/67; PULSE 65; RESP 18; TEMP 36.6; O2SAT 100
== END 2024-03-10 15:05 | disposition home or self-care (01) | DRG 540 ==
LOC: ANHLDR 11:59 → ANHOB2 15:59
PROVIDERS: Admitting Provider Obstetrics & Gynecology; PCP Family Medicine; Visit Provider Obstetrics & Gynecology
PROC: 10D00Z1 Extraction of Products of Conception, Low, Open Approach (ICD-10-PCS; CPT 59514; principal; 2024-03-08 12:00)
DX: O34.211 Maternal care for low transverse scar from previous cesarean delivery (principal); Z37.0 Single live birth; Z3A.39 39 weeks gestation of pregnancy; O36.63X0 Maternal care for excessive fetal growth, third trimester, not applicable or unspecified; O99.284 Endocrine, nutritional and metabolic diseases complicating childbirth; E03.9 Hypothyroidism, unspecified
CPT/HCPCS: 36415; 85025; A9270; J0690; J1200; J1596; J1885; J2274; J2371; J2405; J2590; J7120

== ENCOUNTER 2024-06-20 15:46 | Emergency (ER) | payer OTHER, SELFPAY ==
--- NOTE | 2024-06-20 15:48 | ED.GENADULT ---
HPI - General Adult General Chief complaint: Nausea/Vomiting/Diarrhea Stated complaint: nausea,fever,diarrhea Time Seen by Provider: 06/20/24 16:00 Source: patient, RN notes reviewed and old records reviewed Mode of arrival: ambulatory Limitations: no limitations History of Present Illness HPI narrative: 24-year-old female presents to the [facility] with complaints of nausea, feeling feverish, diarrhea x2 episodes since last night. Is able to eat or drink without issue since she vomited 1 time this morning. Patient denies abdominal pain or chest pain. No treatment prior to arrival Related Data Home Medications ?Medication ?Instructions ?Recorded ?Confirmed ?Last Taken ?Type certolizumab pegol 400 mg/2 mL 400 mg subcut WEEKLY 06/16/23 02/14/24 02/23/24 12:00 History (200 mg/mL x2) subcutaneous syringe kit (Cimzia) levothyroxine 150 mcg tablet 150 mcg PO .QD 06/20/24 06/20/24 Unknown History Allergies Allergy/AdvReac Type Severity Reaction Status Date / Time No Known Allergies Allergy Verified 06/20/24 15:48 Review of Systems Review of Systems: All systems reviewed & are unremarkable except as noted in HPI and below Constitutional: Constitutional: Reports no additional constitutional complaints ENT: Reports system reviewed and no additional complaints, except as documented Cardiovascular: Cardiovascular: Reports no additional cardiovascular complaints, Denies chest pain and Denies dyspnea Respiratory: Respiratory: Reports no additional respiratory complaints, Denies chest congestion, Denies cough and Denies dyspnea Gastrointestinal: Gastrointestinal: Reports as per HPI Musculoskeletal: Musculoskeletal: Reports no additional musculoskeletal complaints Integumentary/Breasts: Skin/Breast: Reports system reviewed and no additional complaints, except as docu PMFSH Past Medical History Medical History Morbid obesity Post-op pain Crohn disease ADHD Hypothyroid Hx of fracture of humerus right Surgical History Surgical History History of section Hx of tonsillectomy Family History Family History Grandparent Diabetes mellitus Hypertension Mother Hypertension Hypothyroid Social History Social History Smoking status: Current every day smoker Tobacco type: e-cigarettes/vaping Second hand tobacco smoke exposure: No Substance use: never Do You Feel Safe in your Home?: Yes Lack of Transportation: No Lack of Food: Never True Current Housing: I Have Housing Concerned About Future Housing: No Difficulty Paying Gas/Electric Bills: No Difficulty Paying for Meds: No Currently Unemployed: No Education: High School Diploma/GED Difficulty w/ Childcare or Family Care: No Living arrangements: with family Gender identity (if verbalized by the patient): Female Spiritual care concerns: No Comments At the time of my signature, I reviewed and agree with the nursing past medical, surgical, social, and family history. There is no relevant family history pertinent to the patient complaint. Exam Const: General: cooperative, healthy appearing, comfortable, no acute distress, well developed, alert and well nourished Nutritional Appearance: well nourished and obese Orientation/consciousness: patient oriented x3 Limitations: no limitations HENMT: Head: normal to inspection Eyes: General: appearance normal, both eyes and all related structures Alignment and Position: alignment normal Neck: Neck: normal visual inspection, full ROM, no lymphadenopathy and no meningeal signs Chest: Chest palpation & inspection: normal inspection of the chest Resp: Effort & Inspection: normal respiratory effort and able to speak in complete sentences Auscultation: clear to auscultation bilaterally, no crackles, no rales, no rhonchi and no wheezes Cardio: Rate: regular rate GI: GI Palp: No abdominal tenderness : General: Yes no CVA tenderness Skin: General skin exam: normal color and no rashes or lesions noted Neuro: General: patient oriented x3, gait normal, moves all extremities and no meningeal signs Cognition (Neuro): normal cognition Speech: normal speech Gait exam (Neuro): Normal gait present Extrem: General: normal to inspection, full ROM, capillary refill normal and normal gait Psych: Appearance: grossly normal and well kempt Mental Status: mental status grossly normal Speech and movement: Normal speech and movement present and Clear speech present Affect: normal affect Attitude: cooperative Course Course Level of Care: Express Care Visit Vital Signs Vital signs: Vital Signs Temperature 98.5 F 06/20/24 15:54 Pulse Rate 72 06/20/24 15:54 Respiratory Rate 16 06/20/24 15:54 Blood Pressure 119/64 06/20/24 15:54 Pulse Oximetry 100 06/20/24 15:54 Oxygen Delivery Room Air 06/20/24 15:54 Temperature 98.5 F 06/20/24 15:54 Pulse Rate 72 06/20/24 15:54 Respiratory Rate 16 06/20/24 15:54 Blood Pressure 119/64 06/20/24 15:54 Pulse Oximetry 100 06/20/24 15:54 Oxygen Delivery Room Air 06/20/24 15:54 Reviewed Medical Decision Making MDM Narrative Medical decision making narrative: Patient sitting comfortably in exam room. Nontoxic, vitals stable. Patient in no acute distress Patient presents for for less than 1 day history of nausea, vomited x1, feeling feverish in diarrhea x2 episodes. No acute findings noted on exam. Patient appropriate for outpatient treatment with [id number] products, simple diet. Discussed in great detail signs and symptoms go to emergency room which she verbalized understanding Discharge instructions reviewed with patient, as well as provided in writing per nursing staff. The instructions also include specific and strict return/GO TO THE ER as well as f/u information. All questions have been answered, and the patient deny any further questions with discharge and discharge plan. Some parts of this dictation were generated by voice recognition software and may contain typographical and/or grammatical inaccuracies. Differential Diagnosis Differential Diagnosis: Gastroenteritis acid reflux Medical Records Medical records reviewed: Yes I reviewed the external patient's medical records. Vital Signs Vital Signs: Vital Signs Temperature 98.5 F 06/20/24 15:54 Pulse Rate 72 06/20/24 15:54 Respiratory Rate 16 06/20/24 15:54 Blood Pressure 119/64 06/20/24 15:54 Pulse Oximetry 100 06/20/24 15:54 Oxygen Delivery Room Air 06/20/24 15:54 Temperature 98.5 F 06/20/24 15:54 Pulse Rate 72 06/20/24 15:54 Respiratory Rate 16 06/20/24 15:54 Blood Pressure 119/64 06/20/24 15:54 Pulse Oximetry 100 06/20/24 15:54 Oxygen Delivery Room Air 06/20/24 15:54 Reviewed Lab Data Lab results reviewed: Yes I reviewed the patient's lab results. Labs: Lab Results 06/20/24 Range/Units 16:13 POC Influenza A Ag Negative (Negative) POC Influenza B Ag Negative (Negative) POC SARS CoV-2 Ag Negative (Negative) Reviewed Critical Care Time Critical Care Time Critical Care Time: No Discharge Plan Discharge Clinical Impression: Gastroenteritis Patient Disposition: Home, Self-Care Condition: Stable Instructions: Antibiotic Form, Gastroenteritis (ED) Additional Instructions: Keep your diet very simple. Nothing fried, greasy, spicy or highly processed for 72 hours. Stay hydrated with plenty of water, Gatorade, Pedialyte, ice pops in Jell-O Today your COVID and flu tests were negative Take Tylenol as needed for discomfort Follow-up with your primary care provider For new or worsening symptoms go directly to the emergency room Patient Language: Ivorian Prescriptions: No Action Cimzia 400 mg/2 mL (200 mg/mL x 2) syringe kit 400 mg SUBCUT WEEKLY levothyroxine 150 mcg tablet 150 mcg PO .QD Follow-up/Referrals: Kirsten,Mila Louise MD [Primary Care Provider] - 1 Week (express care follow up) Stand Alone Forms: Work/School Release IP Time of Disposition: 16:18
[2024-06-20 15:54] VITALS: BP 119/64; PULSE 72; RESP 16; TEMP 36.9; O2SAT 100
[2024-06-20 16:15] LABS: EDCOVIDSCREEN Negative (Negative); EDINFLUASCREEN Negative (Negative); EDINFLUBSCREEN Negative (Negative)
== END 2024-06-20 16:20 | disposition home or self-care (01) ==
PROVIDERS: Emergency Provider Nurse Practitioner; PCP Family Medicine
DX: K52.9 Noninfective gastroenteritis and colitis, unspecified (principal); Z20.822 Contact with and (suspected) exposure to COVID-19; F17.290 Nicotine dependence, other tobacco product, uncomplicated; K50.90 Crohn's disease, unspecified, without complications; E03.9 Hypothyroidism, unspecified; E66.01 Morbid (severe) obesity due to excess calories; Z68.41 Body mass index [BMI] 40.0-44.9, adult
CPT/HCPCS: 87426; 87804; 99212; G0463

== ENCOUNTER 2024-07-03 18:00 | Emergency (ER) | payer OTHER, SELFPAY ==
[2024-07-03 18:03] VITALS: BP 126/64; PULSE 68; RESP 16; TEMP 36.7; O2SAT 100
--- NOTE | 2024-07-03 18:37 | ED.URI ---
HPI - URI/Sore Throat General Chief Complaint: Upper Respiratory Infection Stated Complaint: Sore Throat/Ears Irritation Time Seen by Provider: 07/03/24 18:29 Source: patient and RN notes reviewed Mode of arrival: ambulatory Limitations: no limitations History of Present Illness HPI Narrative: Patient presents today with a 3 day history of sore throat, nasal congestion, and bilateral ear pain. Denies fever, cough, shortness of breath. She currently rates her pain 6/10 and has been using cough drops without relief. 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 Related Data Home Medications ?Medication ?Instructions ?Recorded ?Confirmed ?Last Taken ?Type certolizumab pegol 400 mg/2 mL 400 mg subcut WEEKLY 06/16/23 02/14/24 02/23/24 12:00 History (200 mg/mL x2) subcutaneous syringe kit (Cimzia) levothyroxine 150 mcg tablet 150 mcg PO .QD 06/20/24 06/20/24 Unknown History Allergies Allergy/AdvReac Type Severity Reaction Status Date / Time No Known Allergies Allergy Verified 07/03/24 18:15 Review of Systems Review of Systems: CONSTITUTIONAL: Denies body aches, fever, chills, or sweats. EYES: Denies visual changes, redness, or discharge. ENT: Denies rhinorrhea.+ congestion, sore throat, bilateral ear pain CARDIOVASCULAR: Denies chest pain, palpitations, or edema. RESPIRATORY: Denies cough or dyspnea. GASTROINTESTINAL: Denies abdominal pain, nausea, vomiting, or diarrhea. GENITOURINARY: Denies dysuria or hematuria. SKIN: Denies rash, itching, or wounds. MUSCULOSKELETAL: Denies back pain, joint pain, or myalgia. NEUROLOGIC: Denies headache, numbness, tingling, or weakness. PSYCH: Denies depression or anxiety. [facility] Past Medical History Medical History Morbid obesity Post-op pain Crohn disease ADHD Hypothyroid Hx of fracture of humerus right Surgical History Surgical History History of section Hx of tonsillectomy Family History Family History Grandparent Diabetes mellitus Hypertension Mother Hypertension Hypothyroid Social History Social History Smoking status: Current every day smoker Tobacco type: e-cigarettes/vaping Second hand tobacco smoke exposure: No Substance use: never Do You Feel Safe in your Home?: Yes Lack of Transportation: No Lack of Food: Never True Current Housing: I Have Housing Concerned About Future Housing: No Difficulty Paying Gas/Electric Bills: No Difficulty Paying for Meds: No Currently Unemployed: No Education: High School Diploma/GED Difficulty w/ Childcare or Family Care: No Living arrangements: with family Gender identity (if verbalized by the patient): Female Spiritual care concerns: No Comments At time of signature, I have reviewed and agree with nursing past medical, surgical, social and family history unless otherwise noted. Please see nursing chart for further information. There is no relevant family history pertinent to the presenting complaint Exam Narrative: GENERAL: Well-appearing, well-nourished, and in no acute distress. HEAD: Normocephalic, atraumatic. EYES: EOMI. No redness or drainage. Conjunctivae normal. ENT: Mucous membranes pink and moist. Nares congested. No rhinorrhea. TMs normal bilaterally. Throat normal. Uvula midline. NECK: Normal AROM. Supple. No lymphadenopathy. CHEST: No respiratory distress. Clear to auscultation. HEART: Regular rate and rhythm. No murmur appreciated. EXTREMITIES: Normal range of motion. No edema. SKIN: Warm, dry, no rash. Capillary refill normal. Normal skin turgor. NEURO: No focal deficits. Alert and oriented x3. Gait steady. PSYCH: Normal affect. No signs of depression or anxiety. Course Course Level of Care: Express Care Visit Vital Signs Vital signs: Vital Signs Temperature 98.0 F 07/03/24 18:03 Pulse Rate 68 07/03/24 18:03 Respiratory Rate 16 07/03/24 18:03 Blood Pressure 126/64 07/03/24 18:03 Pulse Oximetry 100 07/03/24 18:03 Oxygen Delivery Room Air 07/03/24 18:03 Temperature 98.0 F 07/03/24 18:03 Pulse Rate 68 07/03/24 18:03 Respiratory Rate 16 07/03/24 18:03 Blood Pressure 126/64 07/03/24 18:03 Pulse Oximetry 100 07/03/24 18:03 Oxygen Delivery Room Air 07/03/24 18:03 Reviewed MDM - URI/Sore Throat MDM Narrative Medical decision making narrative: Testing negative. Strep culture pending. Symptoms likely viral in etiology. Discussed [id number] medication use and duration of illness. No prescription medications indicated at this time. Anticipatory guidance given. ED precautions given. Differential Diagnosis Differential diagnosis: Likely upper respiratory infection, otitis media, viral infection, influenza, pharyngitis and other (COVID-19, strep throat) Lab Data Attestation: I reviewed the patient's lab results. Critical Care Time Critical Care Time Critical Care Time: No Discharge Plan Discharge Clinical Impression: Upper respiratory infection Qualifiers: URI type: unspecified URI Qualified Code(s): J06.9 - Acute upper respiratory infection, unspecified Patient Disposition: Home, Self-Care Condition: Stable Instructions: Upper Respiratory Infection (DC) Additional Instructions: Your COVID-19, influenza, and strep swabs are negative today. You will be notified in a few days if the culture comes back positive for strep, and appropriate antibiotics will be called in for you at that time. Your symptoms are likely due to a viral illness, which is not treated with antibiotics. Viral symptoms can be present for up to 7-10 days. Take Tylenol or ibuprofen for fever or pain. Rest and stay hydrated. Follow up with your PCP in 7 days if symptoms are not improving. Go to the ER immediately if you have any difficulty breathing or swallowing. Your blood pressure was elevated above 120/80 today at Urgent Care. This puts you above the threshold for follow up. Please schedule a followup visit with your personal physician as soon as possible, for further evaluation and treatment. Even blood pressure exceeding 120/80 may indicate pre-hypertension. Patient Language: Estonian Prescriptions: No Action Cimzia 400 mg/2 mL (200 mg/mL x 2) syringe kit 400 mg SUBCUT WEEKLY levothyroxine 150 mcg tablet 150 mcg PO .QD Follow-up/Referrals: Contreras,Iggy Castillo APRN [Primary Care Provider] - Time of Disposition: 18:41
[2024-07-03 18:42] LABS: EDCOVIDSCREEN Negative (Negative); EDINFLUASCREEN Negative (Negative); EDINFLUBSCREEN Negative (Negative); EDSTREPNEGPOS1 Negative (Negative)
== END 2024-07-03 18:48 | disposition home or self-care (01) ==
PROVIDERS: Emergency Provider Nurse Practitioner; PCP Nurse Practitioner Family
DX: J06.9 Acute upper respiratory infection, unspecified (principal); Z20.822 Contact with and (suspected) exposure to COVID-19; F17.290 Nicotine dependence, other tobacco product, uncomplicated; K50.90 Crohn's disease, unspecified, without complications; E03.9 Hypothyroidism, unspecified; E66.01 Morbid (severe) obesity due to excess calories; Z68.41 Body mass index [BMI] 40.0-44.9, adult
CPT/HCPCS: 87081; 87426; 87804; 87880; 99213; G0463

== ENCOUNTER 2024-07-31 17:31 | Emergency (ER) | payer OTHER, SELFPAY ==
--- NOTE | ~2024-07-31 | XR_ITS ---
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 RESULT: Lines, tubes, and devices: None. Lungs and pleura: Clear. Cardiomediastinal silhouette: Stable. Other: No acute osseous or upper abdominal finding. IMPRESSION: No acute cardiopulmonary process. Reviewed, dictated and finalized at location K. OR JAVA J2EE DEVELOPER
[2024-07-31 17:46] VITALS: BP 137/79; PULSE 99; RESP 18; TEMP 36.4; O2SAT 100
--- NOTE | 2024-07-31 17:47 | ECG_ITS ---
Test Date: 2024-07-31 18:34:50 Measurements Intervals [place] Rate: 77 P: -8 AK: 144 QRS: -1 QRSD: 100 T: 94 QT: 349 QTc: 396 Interpretive Statements SINUS RHYTHM LOW QRS VOLTAGE IN LIMB LEADS BORDERLINE ST-T WAVE ABNORMALITY- ANT/HIGH LAT LEADS BASELINE ARTIFACT- I, III, AVR, AVL, AVF BORDERLINE ECG No previous ECG available for comparison Electronically Signed On 07-31-2024 19:08:20 [employer] by Erick Raymond D.O.
--- NOTE | 2024-07-31 17:48 | ED_ITS ---
HPI - Headache General Chief Complaint: Headache <Joanie Ford PA-C - Last Filed: 07/31/24 17:49> Stated Complaint: migraine <Joanie Ford PA-C - Last Filed: 07/31/24 17:49> Time Seen by Provider: 07/31/24 22:26 <Joanie Ford PA-C - Last Filed: 07/31/24 17:49> Focused HPI: 24-year-old female with history of hyperthyroidism and Crohn's disease presents to emergency department for multiple medical complaints. Patient is reporting a bitemporal headache since Wednesday. States yesterday she began developing cough, congestion and chest pain. She states the pain is in the center of her chest, worse with deep inspiration and with coughing. States she had a low-grade fever of 99? the other day. No vomiting or diarrhea. Has been taking Tylenol ibuprofen without improvement. GENERAL: Well-appearing, well-nourished, and in no acute distress. HEAD: Normocephalic, atraumatic. CHEST: Clear to auscultation. ?No respiratory distress. HEART: Regular rate and rhythm.? NEURO: ?Alert and oriented x3. Patient screened in triage and initial orders placed.? ?Additional care and disposition to be based upon?diagnostic testing and treatment. <Joanie Ford PA-C - Last Filed: 07/31/24 17:49> Focused HPI: 24-year-old female with history of hyperthyroidism and Crohn's disease presents to emergency department for cold symptoms. Patient is reporting a bitemporal headache since Wednesday. States yesterday she began developing cough, congestion and chest pain. She states the pain is in the center of her chest, worse with deep inspiration and with coughing. States she had a low-grade fever of 99? the other day. No vomiting or diarrhea. Has been taking Tylenol and ibuprofen with little improvement. GENERAL: Well-appearing, well-nourished, and in no acute distress. HEAD: Normocephalic, atraumatic. CHEST: Clear to auscultation. ?No respiratory distress. HEART: Regular rate and rhythm.? NEURO: ?Alert and oriented x3. Patient screened in triage and initial orders placed.? ?Additional care and disposition to be based upon?diagnostic testing and treatment. <Jessica Toure PA-C - Last Filed: 08/01/24 00:09> Related Data Home Medications: Home Medications ?Medication ?Instructions ?Recorded ?Confirmed ?Last Taken ?Type certolizumab pegol 400 mg/2 mL 400 mg subcut WEEKLY 06/16/23 02/14/24 02/23/24 12:00 History (200 mg/mL x2) subcutaneous syringe kit (Cimzia) levothyroxine 150 mcg tablet 150 mcg PO .QD 06/20/24 06/20/24 Unknown History <SONY Sotelo Last Filed: 07/31/24 17:49> Allergies/Adverse Reactions: Allergies Allergy/AdvReac Type Severity Reaction Status Date / Time No Known Allergies Allergy Verified 07/03/24 18:15 <SONY Sotelo Last Filed: 07/31/24 17:49> Review of Systems 2 Review of Systems: CONSTITUTIONAL: Report subjective fever ENT: Reports congestion CARDIOVASCULAR: Reports chest pain RESPIRATORY: Reports cough. Denies dyspnea. <Jessica Toure PA-C - Last Filed: 08/01/24 00:09> All systems reviewed & are unremarkable except as noted in HPI and below < Jessica Toure PA-C - Last Filed: 08/01/24 00:09> [facility] Past Medical History Medical History: Medical History Morbid obesity Post-op pain Crohn disease ADHD Hypothyroid Hx of fracture of humerus right <SONY Sotelo Last Filed: 07/31/24 17:49> Surgical History Surgical History: Surgical History History of section Hx of tonsillectomy <SONY Sotelo Last Filed: 07/31/24 17:49> Family History Family History: Family History Grandparent Diabetes mellitus Hypertension Mother Hypertension Hypothyroid <Joanie Ford PA-C - Last Filed: 07/31/24 17:49> Social History Social History: Social History Smoking status: Current every day smoker Tobacco type: e-cigarettes/vaping Second hand tobacco smoke exposure: No Substance use: never Do You Feel Safe in your Home?: Yes Lack of Transportation: No Lack of Food: Never True Current Housing: I Have Housing Concerned About Future Housing: No Difficulty Paying Gas/Electric Bills: No Difficulty Paying for Meds: No Currently Unemployed: No Education: High School Diploma/GED Difficulty w/ Childcare or Family Care: No Living arrangements: with family Gender identity (if verbalized by the patient): Female Spiritual care concerns: No <Joanie Ford PA-C - Last Filed: 07/31/24 17:49> Exam 2 Narrative: GENERAL: Well-appearing, well-nourished, and in no acute distress. HEAD: Normocephalic, atraumatic. EYES: PERRLA and EOMI. ENT: Nares clear, no rhinorrhea or epistaxis. Mucous membranes moist. Oropharynx without tonsillar hypertrophy exudate or other lesions. Bilateral TMs pearly vega non-bulging NECK: Supple. No adenopathy or masses. Normal ROM CHEST: Clear to auscultation. No respiratory distress. No wheezes rales or rhonchi HEART: Regular rate and rhythm. No murmur heard. Normal peripheral pulses. ABDOMEN: Soft, nontender, nondistended, normal active bowel sounds. EXTREMITIES: Normal range of motion. No edema. SKIN: Warm, dry, no rash. NEURO: No focal deficits. Alert and oriented x3. Cranial nerves 2-12 grossly intact. Normal gait PSYCH: Normal mood and affect <Jessica Toure PA-C - Last Filed: 08/01/24 00:09> Course Course Emergency Course: patient updated on workup and agrees with plan of care <Jessica Toure PA-C - Last Filed: 08/01/24 00:09> Vital Signs Vital signs: Vital Signs Temperature 97.6 F 07/31/24 17:46 Pulse Rate 99 07/31/24 17:46 Respiratory Rate 18 07/31/24 17:46 Blood Pressure 137/79 07/31/24 17:46 Pulse Oximetry 100 07/31/24 17:46 Temperature 97.7 F 07/31/24 23:02 Pulse Rate 94 07/31/24 23:02 Respiratory Rate 18 07/31/24 23:02 Blood Pressure 137/74 07/31/24 23:02 Pulse Oximetry 97 07/31/24 23:02 <Joanie Ford PA-C - Last Filed: 07/31/24 17:49> Vital Signs Temperature 97.6 F 07/31/24 17:46 Pulse Rate 99 07/31/24 17:46 Respiratory Rate 18 07/31/24 17:46 Blood Pressure 137/79 07/31/24 17:46 Pulse Oximetry 100 07/31/24 17:46 Temperature 97.7 F 07/31/24 23:02 Pulse Rate 94 07/31/24 23:02 Respiratory Rate 18 07/31/24 23:02 Blood Pressure 137/74 07/31/24 23:02 Pulse Oximetry 97 07/31/24 23:02 <Jessica Toure PA-C - Last Filed: 08/01/24 00:09> MDM - Headache MDM Narrative Medical decision making narrative: Patient presents the emergency department for cold symptoms. She is afebrile and nontoxic appearing. Her vitals are stable. Lungs are clear on exam. Cbc without leukocytosis. Metabolic panel with some evidence of dehydration. Patient hydrated with a L of IV fluids. EKG without concerning changes in baseline troponin is negative. Chest x-ray without acute cardiopulmonary abnormality. Patient is influenza A positive. Structure on continued symptomatic care a viral infection. She will be started on Tamiflu. She is to follow up with primary provider. She was given warnings to return to the ER <Jessica Toure PA-C - Last Filed: 08/01/24 00:09> Differential Diagnosis Differential diagnosis: Likely migraine, tension headache, headache, sinusitis and other (influenza, COVID, pneumonia) <Jessica Toure PA-C - Last Filed: 08/01/24 00:09> Lab Data Attestation: I reviewed the patient's lab results. <Jessica Toure PA-C - Last Filed: 08/01/24 00:09> Result diagrams: 07/31/24 22:53 07/31/24 22:53 <Joanie Ford PA-C - Last Filed: 07/31/24 17:49> Labs: Lab Results 07/31/24 07/31/24 07/31/24 Range/Units 21:14 22:53 22:57 WBC 4.9 (4.5-10.0) K/mm3 RBC 4.53 (4.2-5.4) M/mm3 Hgb 13.1 D (12.0-15.0) g/dL Hct 39.8 (37.0-47.0) % MCV 87.9 (80-100) fl MCH 28.9 (26-34) pg MCHC 32.9 (32-36) g/dl RDW 14.1 (11.5-14.5) % Plt Count 169 (150-375) k/mm3 MPV 10.8 H (7.4-10.4) fl Immature Gran % (Auto) 0.2 (0-0.5) % Neut % (Auto) 51.3 (45.5-73.1) % Lymph % (Auto) 38.3 (18.3-44.2) % [place] % (Auto) 8.2 (2.6-8.5) % Eos % (Auto) 1.6 (0-4.4) % Baso % (Auto) 0.4 (0.2-1.2) % Lymph # (Auto) 1.86 (0.9-3.2) K/mm3 [place] # (Auto) 0.4 (0.1-0.6) K/mm3 Eos # (Auto) 0.1 (0-0.3) K/mm3 Baso # (Auto) 0.0 (0.0-0.1) K/mm3 Abs Immat Gran (auto) 0.01 (0.00-0.031) K/mm3 Absolute Neuts (auto) 2.5 (1.3-6.7) K/mm3 Absolute Nucleated RBC 0.000 (0.0-0.012) K/mm3 Nucleated RBC % 0.0 (0.0-0.2) % Sodium 140 (137-145) mmol/L Potassium 3.5 (3.4-5.0) mmol/L Chloride 107 (98-107) mmol/L Carbon Dioxide 20 L (22-30) mmol/L Anion Gap 13 H (4-12) mmol/L BUN 10 (7-17) mg/dL Creatinine 0.66 L (0.7-1.0) mg/dL Estim Creat Clear Calc 158 ml/min Estimated GFR > 60 (59 - ) Glucose 99 (65-110) mg/dL Calcium 9.7 (8.4-10.2) mg/dL Total Bilirubin 0.5 (0.2-1.3) mg/dL AST 25 (14-36) U/L ALT 41 H (6-35) U/L Alkaline Phosphatase 37 L (38-126) U/L Troponin I < 0.012 (0.000-0.034) ng/mL Total Protein 8.0 (6.3-8.2) g/dL Albumin 4.5 (3.5-5.1) g/dL Lipase 90 (23-300) U/L POC Urine HCG, Qual Negative (Negative) Influenza A (RT-PCR) Positive A (Negative) Influenza B (RT-PCR) Negative (Negative) RSV (RT-PCR) Negative (Negative) SARS-CoV-2 RNA (RT-PCR) Negative (Negative) <Joanie Ford PA-C - Last Filed: 07/31/24 17:49> Lab Results 07/31/24 07/31/24 07/31/24 Range/Units 21:14 22:53 22:57 WBC 4.9 (4.5-10.0) K/mm3 RBC 4.53 (4.2-5.4) M/mm3 Hgb 13.1 D (12.0-15.0) g/dL Hct 39.8 (37.0-47.0) % MCV 87.9 (80-100) fl MCH 28.9 (26-34) pg MCHC 32.9 (32-36) g/dl RDW 14.1 (11.5-14.5) % Plt Count 169 (150-375) k/mm3 MPV 10.8 H (7.4-10.4) fl Immature Gran % (Auto) 0.2 (0-0.5) % Neut % (Auto) 51.3 (45.5-73.1) % Lymph % (Auto) 38.3 (18.3-44.2) % [place] % (Auto) 8.2 (2.6-8.5) % Eos % (Auto) 1.6 (0-4.4) % Baso % (Auto) 0.4 (0.2-1.2) % Lymph # (Auto) 1.86 (0.9-3.2) K/mm3 [place] # (Auto) 0.4 (0.1-0.6) K/mm3 Eos # (Auto) 0.1 (0-0.3) K/mm3 Baso # (Auto) 0.0 (0.0-0.1) K/mm3 Abs Immat Gran (auto) 0.01 (0.00-0.031) K/mm3 Absolute Neuts (auto) 2.5 (1.3-6.7) K/mm3 Absolute Nucleated RBC 0.000 (0.0-0.012) K/mm3 Nucleated RBC % 0.0 (0.0-0.2) % Sodium 140 (137-145) mmol/L Potassium 3.5 (3.4-5.0) mmol/L Chloride 107 (98-107) mmol/L Carbon Dioxide 20 L (22-30) mmol/L Anion Gap 13 H (4-12) mmol/L BUN 10 (7-17) mg/dL Creatinine 0.66 L (0.7-1.0) mg/dL Estim Creat Clear Calc 158 ml/min Estimated GFR > 60 (59 - ) Glucose 99 (65-110) mg/dL Calcium 9.7 (8.4-10.2) mg/dL Total Bilirubin 0.5 (0.2-1.3) mg/dL AST 25 (14-36) U/L ALT 41 H (6-35) U/L Alkaline Phosphatase 37 L (38-126) U/L Troponin I < 0.012 (0.000-0.034) ng/mL Total Protein 8.0 (6.3-8.2) g/dL Albumin 4.5 (3.5-5.1) g/dL Lipase 90 (23-300) U/L POC Urine HCG, Qual Negative (Negative) Influenza A (RT-PCR) Positive A (Negative) Influenza B (RT-PCR) Negative (Negative) RSV (RT-PCR) Negative (Negative) SARS-CoV-2 RNA (RT-PCR) Negative (Negative) <Jessica Toure PA-C - Last Filed: 08/01/24 00:09> Imaging Data Radiologist's impression: ITS Impressions Chest X-Ray 07/31/24 18:28 IMPRESSION: No acute cardiopulmonary process. <Jessica Toure PA-C - Last Filed: 08/01/24 00:09> ECG Data EKG #1: ECG completion date: 07/31/24 <SONY Lui Last Filed: 08/01/24 00:09> EKG Interpretation: normal rate, sinus rhythm, no ST changes and normal QT <SONY Lui Last Filed: 08/01/24 00:09> Critical Care Time Critical Care Time Critical Care Time: No <Jessica Toure PA-C - Last Filed: 08/01/24 00:09> Discharge Plan Discharge Clinical Impression: Influenza A <Joanie Ford PA-C - Last Filed: 07/31/24 17:49> Patient Disposition: Home, Self-Care <Joanie Ford PA-C - Last Filed: 07/31/24 17:49> Condition: Stable <SONY Sotelo Last Filed: 07/31/24 17:49> Instructions: Influenza (ED) <SONY Sotelo Last Filed: 07/31/24 17:49> Additional Instructions: Return to the emergency department for worsening symptoms, or any other concerns Remain well-hydrated, get plenty of rest. Take Tylenol or Motrin [id number] for pain as needed. Flonase for nasal congestion. Zyrtec for runny nose. Lozenges or Chloraseptic spray for sore throat. Take Tamiflu as prescribed Follow up with primary care doctor <SONY Sotelo Last Filed: 07/31/24 17:49> Patient Language: Grenadian <SONY Sotelo Last Filed: 07/31/24 17:49> Prescriptions: New oseltamivir [Tamiflu] 75 mg capsule 75 mg PO Q12H 5 Days Qty: 10 0RF No Action Cimzia 400 mg/2 mL (200 mg/mL x 2) syringe kit 400 mg SUBCUT WEEKLY levothyroxine 150 mcg tablet 150 mcg PO .QD <Joanie Ford PA-C - Last Filed: 07/31/24 17:49> Follow-up/Referrals: Chairez,Iggy Castillo APRN [Primary Care Provider] - <Joanie Ford PA-C - Last Filed: 07/31/24 17:49>
--- OUTSIDE RECORDS SUMMARY | 2024-07-31 18:56 | XMS_ITS | Clinical Summary ---
Author Organization [facility] Address [address] [address] Phone Care Team Providers Care Barrel Painter Name Role Phone Mila Curtis MD Primary Care Provider + Brittany Tamayo APN, HANDLE AND VENT MACHINE OPERATOR Unavailable Sofia Gonzalez Pinky PAC Unavailable [phone] Leslie Saenz MD Unavailable Allergies No known active allergies Medications ondansetron (ZOFRAN-ODT) 4 MG TABLET DISPERSIBLE Take 4 mg by mouth. 2 Active Multiple Vitamin (Multivitamins) Capsule Take 1 Capsule by mouth daily. Active levonorgestrel (Mirena, 52 MG,) 20 MCG/DAY IUD Mirena 21 mcg/24 hours (8 yrs) 52 mg intrauterine device Take 1 device by intrauterine route. Active levothyroxine (SYNTHROID) 100 MCG Tablet 250 MCG DAILY - TAKE 1 TABLET BY MOUTH DAILY WITH 150 MCG TABLET 90 Tablet 1 4 Active levothyroxine (SYNTHROID) 150 MCG Tablet TAKE 1 TABLET BY MOUTH ONCE DAILY WITH 100 MCG 90 Tablet 1 4 Active Active Problems Problem Noted Date Diagnosed Date Crohn's disease involving stomach 02/02/2020 Acquired hypothyroidism 04/10/2019 Class 3 severe obesity due t o excess calories without serious comorbidity with body mass index (BMI) of 40.0 to 44.9 in adult 04/10/2019 Noncompliance 04/10/2019 Encounters Date Type Department Care Team Description 05/15/2024 11:30 AM SPOT WASHER [facility] [address] [place] [address] Leslie Saenz MD Acquired hypothyroidism (Primary Dx) Discharge Disposition: Discharged to home or Selfcare 05/15/20[facility] [address] [place] [address] Leslie Saenz MD Results; Medication Management 05/15/2024 Travel from Last 3 Months Immunizations Immunization Administration Dates Next Due DTAP VACCINE 2001,2001,2001 DTAP VACCINE, UNSPECIFIED FORMULATION 2005 DTP Vaccine 10/23/2002 HEP B/HIB Combined Vaccine 2001,2001 Hepatitis A Vaccine, Pediatr ic/adolescent, 2 Dose Schedule 02/05/2012 Hepatitis A Vaccine,unspecified Formulation 01/05 Hepatitis B Vaccine, Pediatric/adolescent 2000 Hib Vaccine,unspecified Formulation 10/23/2002,1 07/22/2000 Human Papillomavirus (HPV) 9-valent Vaccine 02/05 Inactivated Polio Vaccine 10/23/2002,2001, 2001 Influenza Vaccine, Quadrivalent, PF 03/06/2020 MMR Vaccine 02/16/2018,2005,2001 Meningococcal Group B OMV 02/16/2018 Meningococcal MCV4O 02/16/2018 Meningococcal Vaccine 03/19/2014 Polio Vaccine,unspecified Formulation 2005 TDAP Vaccine 08/25/2020,03/06/2020,02/05/2012 Varicella Vaccine Live 05/13/2010,10/02/2003 Family History Medical History Relation Name Comments No Known Problems Father Diabetes Maternal Grandfather Hypertension Maternal Grandfather Diabetes Maternal Grandmother Cancer Maternal Great-Grandfather p roatate Diabetes Maternal Uncle Hypertension Mother Thyroid Disease Mother Relation Name Status Comments Father Alive Maternal Grandfather Maternal Grandmother Maternal Great-Grandfather Maternal Uncle Mother Alive Social History Tobacco Use Types Packs/Day Years Used Date Smoking Tobacco: Never Smokeless Tobacco: Never Tobacco Cessation:Counseling Given: Not Answered Alcohol Use Standard Drinks/Week Comments No 0 (1 standard drink = 0.6 oz pur e alcohol) Sexually Active Control Partners Comments Yes Implant Comments No Sex and Gender Information Value Date Recorded Sex Assigned at Not on file Legal Sex Female 10:20 AM CDT Gender Identity Not on file Sexual Orientation Not on file Last Filed Vital Signs Vital Sign Reading Time Taken Comments Blood Pressure 112/78 05/15/2024 11:05 AM SPOT WASHER Pulse 108 05/15/2024 11:05 AM SPOT WASHER Temperature 36.9 C (98.5 F) 05/15/2024 11:05 AM SPOT WASHER Respiratory Rate 16 05/15/2024 11:0 5 AM SPOT WASHER Oxygen Saturation 100% 05/15/2024 11: 05 AM SPOT WASHER Inhaled Oxygen Concentration - - Weight 118.8 kg (261 lb 12.8 oz) 2023 11:05 AM SPOT WASHER Height 170.2 cm (5' 7 ) 05/15/2024 11:0 5 AM SPOT WASHER Body Mass Index 41 05/15/2024 11:05 AM SPOT WASHER Plan of Treatment Upcoming Encounters Date Type Department Care Team (Late st Contact Info) Description 08/14/2024 11:30 AM CDT Office Visit [facility] [place] [address] [place] [address] Leslie Saenz MD [address] [address] Health Maintenance Due Date Last Done Comments Human Papillomavirus (HPV) Immunization (2 - 3-dose series) 03/16/2018 02/16/2018 Meningococcal B Immunization (2 of 2 - Bexsero SCDM 2-dose series) 08/16/2018 02/16/2018 Pap Smear 2022 Influenza Immunization (#1) 2024 03/06/2020 SARS-COV-2 Immunization ( season) 2024 DTaP/Tdap/Td Immunization (10 - Td or Tdap) 01/18/2034 01/19/2024, 08/25/2020, 03/06/2020, Additional history exists Respiratory Syncytial Virus (RSV) Immunization (Adult) (1 - 1-dose 75+ series) 01/03/2076 Hepatitis B Immunization Completed 002, 2001, 2001 Meningococcal Immunization (ACWY) Completed 02/16/2018, 03/19/2014 Hepatitis C Virus (HCV) Screening Completed 03/31/2018 Pneumococcal Immunization Combined Aged Out No longer eligible based on patient's age to complete this topic Rotavirus Immunization Aged Out No lo nger eligible based on patient's age to complete this topic Procedures Procedure Name Priority Date/Time Associated Diagnosis Comments THYROXINE (T4) FREE Routine 05/15/2024 1 1:32 AM SPOT WASHER Acquired hypothyroidism THYROID STIMULATING HORMONE (TSH) Routine 05/15/2024 11:32 AM SPOT WASHER Acquired hypothyroidism HEPATITIS PANEL ACUTE (AHP) Routine 03/31/2018 12:54 PM CDT Crohn's disease involving stomach (HCC) from Last 3 Months or Most Recently Relevant to Health Maintenance Results * THYROXINE (T4) FREE (05/15/2024 11:32 AM SPOT WASHER) T4 FREE 1.3 0.7 - 1.9 ng/dL 05/15/2024 12:39 PM SPOT WASHER [facility] Blood Venipuncture / Unknown 05/15/2024 11:32 AM SPOT WASHER 05/15/2024 11:44 AM SPOT WASHER us Leslie Saenz MD CHEMISTRY ORDERABLES Final Resul t [facility] [address] [place] [address] * (ABNORMAL) THYROID STIMULATING HORMONE (TSH) (05/15/2024 11:32 AM SPOT WASHER) TSH 0.012(L) 0.300 - 5.000 mIU/L 05/15/2024 12:39 PM SPOT WASHER [facility] Blood Venipuncture / Unknown 05/15/2024 11:32 AM SPOT WASHER 05/15/2024 11:44 AM SPOT WASHER us Leslie Saenz MD CHEMISTRY ORDERABLES Final Resul t [facility] [address] [place] [address] * Hepatitis Panel Acute (AHP) (03/31/2018 12:54 PM CDT) HEPATITIS A IGM ANTIBODY NON DETECTED NON DETECTED 04/01/2018 3:35 AM CDT [facility] Comment: IGM Antibodies to HAV not detected. Does not exclude early acute or recovered HAV infection. HEP B CORE AB (IGM) NON DETECTED NON DETECTED 04/01/2018 3:35 AM CDT [facility] Comment: IGM anti-HBC not detected. Does not exclude the possibility of exposure to or infection with HBV. HEPATITIS B SURFACE ANTIGEN NON DETECTED NON DETECTED 04/01/2018 3:35 AM CDT [facility] Comment: A nonreactive test result does not exclude the possibility of exposure to or infection with Hepatitis B virus. A nonreactive test result in individuals with prior exposure to hepatitis B may be due to antigen levels below the detection limit of this assay or lack of antigen reactivity to the antibodies in this assay. hepatitis C antibody 0.22 <1 S/CO 04/01/2018 3:35 AM CDT [facility] Comment: Signal/Cutoff ratio < 0.79 is Nondetected Signal/Cutoff ratio 0.80-0.99 is Grayzone Signal/Cutoff ratio > 0.99 is Detected Supplemental assays are recommended if signal/cutoff ratio is >/=1.00. Signal/cutoff ratio result >/= 5.00 is 97% predictive of positivity for recombinant immunoblot assay (RIBA) and will be reported to the [place] Department of Public Health as required. Blood specimen (specimen) Butterfly Puncture / Unknown 03/31/2018 12:54 PM CDT 03/31/2018 1:00 PM CDT us Saikiran Raghavapuram MD HEMATOLOGY ORDERABLES F inal Result [facility] [address] [place] [address], from Last 3 Months or Most Recently Relevant to Health Maintenance Insurance MEDICAID WORKMAN Care Teams Barrel Painter Relationship Specialty Start Date End Date Mila Curtis MD [address] [place] [phone] PCP - General Family Medicine 03/09/18 Brittany Tamayo, VISUAL JOURNALIST, HANDLE AND VENT MACHINE OPERATOR [address] [place] [address] Banking Attorney Advanced Practice Nurse 06/04/20 Sofia Gonzalez, JIGAR [address] [place] [address] Physician Master Plumber Physician Master Plumber 09/05/21 Leslie Saenz MD [address] [id number] Consulting Physician Endocrinology 01/30/22
--- OUTSIDE RECORDS SUMMARY | 2024-07-31 18:56 | XMS_ITS | Clinical Summary ---
Author Organization [facility] Address [address] [place] [address] Care Team Providers Care Billet Sawyer Name Role Phone Mila Curtis MD Primary Care Provider [phone] Source Comments [facility],non-owned Affiliates and Associated Physician Practices is amultiple site organization consisting of ambulatory clinics and hospital sitesin [place], [place], [place] and [place]. This disclosure is being madepursuant to the Care Everywhere program and may not contain all information available regarding this patient. Last updated 18.[facility] [employer] Allergies No known active allergies Medications * Be aware that medications may not be up to date on this document. Alwaysverify current medications with the patient. Medication Sig Dispensed Refills Start Date End Date Status levothyroxine (Synthroid) 100 MCG tablet Take 1 (one) tablet by mouth 2 times daily Active ibuprofen (Motrin) 600 MG tabletIndications:Po st-operative state Take 1 (one) tablet by mouth every 6 hours as needed for Pain 60 tablet 03/13/2022 Active ondansetron, disintegrating, (Zofran ODT) 4 MG tabletIndications:Po st-operative state Take 1 (one) tablet by mouth every 6 hours as needed for Nausea/Vomiting Allow tablet to dissolve on the tongue 10 tablet 03/13/2022 Active Etonogestrel (NEXPLANON SC) 1 (one) time Active oxyCODONE, immediate release, (Roxicodone) 5 MG tabletIndications:Po st-operative state Take 1 (one) tablet by mouth every 4 hours as needed 30 tablet 03/31/2022 Active Active Problems Problem Noted Date Diagnosed Date Mucinous cystadenoma of ovary, 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 No urine ketones on dipstick today which is reassuring. Maternal Medicine recommendations: 1. Instructed to order picker/assembler a prescription for Diclegis 1. If no significant improvement then can discontinue the use of the iron supplement and the vitamin 1. Patient instructed to notify our office if she discontinues her iron and as she should then substitute with folic acid supplementation Rash and nonspecific skin eruption 03/13/2020 Assessment & Plan (06/17/2020 12:32 PM SECONDARY SCHOOL REGISTRAR): Improved without flare. Previously diagnosed as eczema earlier in this . Maternal Medicine recommendations: 1. Previously instructed on Eczema dos and don'ts. 2. Follow-up with Dermatology arranged, patient did not attend. 3. Report to primary OB if itching worsens or begins in new locations, such as palms or feet, or if worse at night. Assessment & Plan (03/13/2020 4:28 PM CDT): Associated with generalized pruritus. Rash seems worse on her back. Some improvement with steroid cream. Previously diagnosed as eczema earlier in this . Maternal Medicine recommendations: 1. Instructed to try hygiene regimen for eczema, such as: short, mild temperature showers/baths; avoid significant heat; change detergent to hypoallergenic option; change hand soap to hypoallogeneic option 2. Follow-up with Dermatology as previously recommended Low vitamin D level 03/11/2020 Overview (03/11/2020): Encouraged 1,000 IU of vitamin D daily, results: 24.2 on 02/12 Assessment & Plan (03/13/2020 4:20 PM CDT): Vitamin D in the insufficient range on last assessment. [facility] recommendations: 1. encouraged to take vitamin D supplementation Crohn's disease involving stomach 02/02/2020 Overview (03/31/2022): Added automatically from request for surgery [id number] Maternal Crohn's disease affecting 04/2020 Overview (01/16/2020): On Humira Assessment & Plan (06/17/2020 1:01 PM SECONDARY SCHOOL REGISTRAR): Currently asymptomatic-- has missed two doses of Humira d/t insurance issues. Missed GI appointment, rescheduled for next 06/24/20. Maternal Medicine recommendations: 1. Recommendation for continuation of ASA 162mg daily. 2. Plan for serial growth ultrasounds. 3. Check vitamin D, B12 and calcium levels every trimester--next assessment in the 3rd trimester, referring OB to obtain. 4. Consider holding Humira at/after 36 weeks of for a / washout period 5. Potential for increased flares during , also increased risk of growth restriction, delivery and preeclampsia. At risk for community acquired infections due to Humira. Practice social distancing, mask wearing, frequent hand hygiene-- follow up to date CDC guidelines. 6. Recommend compliance with GI appointment. 7. Report any symptoms of a flare to Process Engineering Intern promptly. Assessment & Plan (05/08/2020 12:42 PM SECONDARY SCHOOL REGISTRAR): Currently asymptomatic. Compliant with Humira. Missed GI appointment, rescheduled for 2020. AGA growth identified today. Maternal Medicine recommendations: 1. Recommendation for continuation of ASA 162mg daily. 2. Plan for serial growth ultrasounds every 4 weeks starting today. 3. Check vitamin D, B12 and calcium levels every trimester--next assessment in the 3rd trimester, referring OB to obtain. 4. Consider holding Humira at/after 36 weeks of for a / washout period 5. Potential for increased flares during , also increased risk of growth restriction, delivery and preeclampsia. At risk for community acquired infections due to antibody medication. 6. Recommend compliance with GI appointment. Assessment & Plan (03/13/2020 4:30 PM CDT): Currently asymptomatic. Potential for increased flares during , also increased risk of growth restriction, delivery and preeclampsia. At risk for community acquired infections due to antibody medication. Maternal Medicine recommendations: 1. recommendation for ASA 162mg daily --reminded today to start this prescription 2. plan for serial growth ultrasounds every 4 weeks starting at 24 weeks 3. check vitamin D, B12 and calcium levels every trimester--next assessment in the 3rd trimester 4. Consider holding Humira at/after 36 weeks of for a / washout period Abnormal liver enzymes 12/16/2017 Overview (05/08/2020): 01/09/19 Fibroscan CAP 397, E 7.2 kPa Fibroscan demonstrated high probability of hepatic steatosis, Score F0-F1. Per GI notes, likely secondary to uncontrolled hypothyroidism. baseline CMP ( 02/02/2020) ALT 15/AST 15 Maternal hypothyroidism, antepartum 06/17/2016 Overview (06/17/2020): Dx - 12/18/15, TSH: >150 mcIU/mL, Thyroglobulin and TPO Abs: positive 2017, Tx with L-thyroxine - started shortly after diagnosis but did not take consistently [02/13/2020] TSH : 5.61 and fT4: 1.10, increased to levothyroxine 250 mcg daily [03/30/2020] TSH: 51 and fT4: 0.59, increased to levothyroxine 300 mcg daily by PCP [05/10/2020] TSH: 9.51 and FT4: 1.1, instructed to take all 300mcg first thing in the morning, on an empty stomach [06/05/20] TSH: 0.53, continue levothyroxine 250mcg per day per Dr. Saenz, kennel operator. [facility] [place] , Dr. Saenz on 05/20/20 Assessment & Plan (06/17/2020 3:41 PM SECONDARY SCHOOL REGISTRAR): 06/05/20 TSH: 0.53, continue levothyroxine 250mcg per day per Dr. Saenz, kennel operator. LGA growth per preliminary report today. Maternal Medicine recommendations: 1. Management and adjustment of levothyroxine now per kennel operator, Dr. Saenz, has follow up scheduled for 06/24/20. 2. Reminded of importance of taking on an empty stomach, at least 30-60 minutes before food. 3. Serial growth ultrasounds. 4. At risk for preeclampsia, continue LD ASA, reviewed symptoms again today and to report promptly to Process Engineering Intern if they occur. Assessment & Plan (05/08/2020 12:45 PM SECONDARY SCHOOL REGISTRAR): Has been on the current dose of levothyroxine to 300 mcg daily since 03/30/20, taking it as split dosing. Last TSH 51 with fT4 at 0.59, increased by primary OB on 03/30. Asymptomatic. Maternal Medicine recommendations: 1. Orders given to have thyroid function tests (TSH) re-evaluated today. 2. Nursing called endocrinology to see if patient's appointment could be moved up, and this was accomplished, patient aware she is scheduled for [facility] on 05/28. 3. Reviewed medications and foods that could be interfering with absorption of levothyroxine and to ensure separation time. Reviewed the recommendation is once daily dosing, on an empty stomach, at least 30-60 minutes before food. Alternative, may consistently administer at night 3 to 4 hours after the last meal. Do not administer within 4 hours of calcium, iron containing products, or bile acid sequestrants. 4. Serial growth ultrasounds. 5. At risk for preeclampsia and reviewed symptoms in detail today. Assessment & Plan (03/13/2020 4:28 PM CDT): Has been on the current dose of levothyroxine to 50 mg daily for approximately 1 month. Last TSH mildly outside of her goal range. Maternal Medicine recommendations: 1. orders given to have thyroid function tests (TSH) re-evaluated 1. will call with recommendations for dose adjustment if needed Assessment & Plan (08/10/2016 5:00 PM SECONDARY SCHOOL REGISTRAR): Hypothyroidism; improved clinically; better medication adherence 1. Orders Placed This Encounter Procedures TSH T4 TOTAL ANTI THYROID ANTIBODY PANEL 2. Obtain serum biochemistries at local laboratory following today's office appointment and fax results to Dr. Jeff Begum at [phone] (laboratory requisition given). 3. Outpatient Prescriptions Marked as Taking for the 08/10/16 encounter (Hospital Encounter) with Jeff Begum MD Medication Sig L-thyroxine 0.175 mg daily 4. See website: [email or web address].org for patient information handouts - Hypothyroidism 5. Return appointment in 4 month(s). 6. I reviewed my provisional impressions and recommendations with mother and she was in agreement. Obesity complicating Overview (03/13/2020): (02/13/2020) Hgb A1c 4.8 Assessment & Plan (06/17/2020 12:35 PM SECONDARY SCHOOL REGISTRAR): 13lb weight gain noted thus far. LGA growth noted today per preliminary report. Reports GCT results are pending. Maternal medicine recommendations 1. Reiterated recommendations for weight maintenance during and IOM guidelines for 11-20lb weight gain during 2. Remains at risk for hypertensive disorders of and gestational diabetes. 3. Please send GCT results. 4. Consider 8 point BPP at 36 weeks. 5. Dietary counseling given today, including importance of elimination of sweetened beverages, adequate servings of green vegetables and protein intake. 6. See separate ultrasound report. Assessment & Plan (05/08/2020 12:43 PM SECONDARY SCHOOL REGISTRAR): 2lb net weight gain noted thus far. Maternal medicine recommendations 1. Reiterated recommendations for weight maintenance during and IOM guidelines for 11-20lb weight gain during 2. Remains at risk for hypertensive disorders of and gestational diabetes, encourage GCT at 26-28 weeks. 3. Consider 8 point BPP at 36 weeks. Resolved Problems Problem Noted Date Diagnosed Date Resolved Date Post-operative state 03/11/2022 022 Supervision of high-risk pre gnancy of young primigravida 03/11/2020 03/31/2022 Overview (05/08/2020): Datinw5d u/s not c/w LMP of 11/13/19, LEONILA--> 08/27/20 summary from 02/19/20: O+, antibody screen: negative, rubella immune, RPR: NR, HIV: NR, Hep B ag: NR Hemoglobin A1c: 4.8% CT/GC/Trich: negative Crohn's disease 05/04/2018 03/13/2020 Immunizations Name Administration Dates Next Due MENINGOCOCCAL CONJUGATE (MCV4P) 03/19/2014 Family History Medical History Relation Name Comments Diabetes Maternal Grandfather Other - Cardiac Maternal Grandfather from heart disease Diabetes; unknown type Maternal Grandmother Thyroid Disease Maternal Grandmother Cancer - Pancreatic Maternal Great-Grandfather Hypertension Mother Thyroid Disease Mother Diabetes Paternal Grandmother Eczema Sister 1 Eczema Sister 2 Relation Name Status Comments Maternal Grandfather Maternal Grandmother Maternal Great-Grandfather Alive Mother Paternal Grandmother Sister 1 Sister 2 Social History Tobacco Use Types Packs/Day Years Used Date Smoking Tobacco: Never Smokeless Tobacco: Never Tobacco Cessation:Counseling Given: Not Answered Alcohol Use Standard Drinks/Week Comments Yes 2 (1 standard drink = 0.6 oz pur e alcohol) Hunger Vital Sign Answer Date Recorded Within the past 12 months, y ou worried that your food would run out before you got the money to buy more. Never true 03/12/20 22 Within the past 12 months, t he food you bought just didn't last and you didn't have money to get more. Never true 03/12/2022 Sex and Gender Information Value Date Recorded Sex Assigned at Not on file Gender Identity Not on file Sexual Orientation Not on file Last Filed Vital Signs Vital Sign Reading Time Taken Comments Blood Pressure 116/58 01/12/2024 1:37 PM CDT Pulse 90 01/12/2024 1:37 PM CDT Temperature 36.6 C (97.9 F) 03/13/2022 7:41 AM CDT Respiratory Rate 18 03/13/2022 7:41 AM CDT Oxygen Saturation 98% 03/31/2022 3:05 PM CDT Inhaled Oxygen Concentration - - Weight 123.5 kg (272 lb 3.2 oz) 01/12/2024 1:37 PM CDT Height 170.2 cm (5' 7 ) 01/12/2024 1:37 PM CDT Body Mass Index 42.63 01/12/2024 1:37 PM CDT Plan of Treatment Health Maintenance Due Date Last Done Comments PAP SMEAR 2001 HIV SCREENING 01/03/2016 HPV VACCINE (1 - 3-dose series) 01/03/2016 CHLAMYDIA/GONORRHEA SCREENING 2017 MENINGOCOCCAL (Group B) VACCINE (1 of 2 - Standard) 2017 HEPATITIS C SCREENING 12/29/2018 DTAP/TDAP/TD VACCINES (1 - Tdap) 01/03/2020 HEPATITIS B VACCINE (1 of 3 - 19+ 3-dose series) 01/03/2020 COVID-19 VACCINE (1 - 2023-2 5 season) 2024 INFLUENZA VACCINE (#1) 2024 0, 05/13/2010, 04/17/2008 DEPRESSION SCREENING 06/07/2024 ZOSTER VACCINE (1 of 2) 2051 MENINGOCOCCAL VACCINE Aged Out 03/19/2014 No sajan garry eligible based on patient's age to complete this topic HIB VACCINE Aged Out No longer eligi ble based on patient's age to complete this topic PNEUMOCOCCAL VACCINE Aged Out No long er eligible based on patient's age to complete this topic Care Teams Billet Sawyer Relationship Specialty Start Date End Date Mila Curtis MD [address] [place] [id number] PCP - General Family Medicine 02/28/15
--- OUTSIDE RECORDS SUMMARY | 2024-07-31 18:56 | XMS_ITS | Referral Summary ---
Author Organization [facility] Address [address] [place] [address] Care Team Providers Care Manager Environmental Name Role Phone Mila Curtis MD Primary Care Provider [phone] Source Comments [facility],non-[facility] Affiliates and Associated Physician Practices is amultiple site organization consisting of ambulatory clinics and hospital sitesin [place], [place], [place] and [place]. This disclosure is being madepursuant to the Care Everywhere program and may not contain all information available regarding this patient. Last updated 18.[facility] [employer] Allergies No known active allergies Medications * [...] reassuring. Maternal Medicine recommendations: 1. Instructed to pick up operator a prescription for Diclegis 1. If no significant improvement then can discontinue the use of the iron supplement and the vitamin 1. Patient instructed to notify our office if she discontinues her iron and as she should then substitute with folic acid supplementation Rash and nonspecific skin eruption 03/13/2020 Assessment & Plan (06/17/2020 12:32 PM CREATIVE COORDINATOR): Improved without flare. Previously diagnosed as eczema [...] in the insufficient range on last assessment. [facility] recommendations: 1. encouraged to take vitamin D supplementation Crohn's disease involving stomach 02/02/2020 Overview (03/31/2022): Added automatically from request for surgery [id number] Maternal Crohn's disease affecting 04/2020 Overview (01/16/2020): On Humira Assessment & Plan (06/17/2020 1:01 PM CREATIVE COORDINATOR): Currently asymptomatic-- has missed two doses of [...] Report any symptoms of a flare to Enterprise Application Administrator promptly. Assessment & Plan (05/08/2020 12:42 PM CREATIVE COORDINATOR): Currently asymptomatic. Compliant with Humira. Missed GI [...] levothyroxine 250mcg per day per Dr. Saenz, legal services professional. [facility] [place] , Dr. Saenz on 05/20/20 Assessment & Plan (06/17/2020 3:41 PM CREATIVE COORDINATOR): 06/05/20 TSH: 0.53, continue levothyroxine 250mcg per day per Dr. Saenz, legal services professional. LGA growth per preliminary report today. Maternal Medicine recommendations: 1. Management and adjustment of levothyroxine now per legal services professional, Dr. Saenz, has follow up scheduled for 06/24/20. 2. Reminded of importance of taking on an empty stomach, at least 30-60 minutes before food. 3. Serial growth ultrasounds. 4. At risk for preeclampsia, continue LD ASA, reviewed symptoms again today and to report promptly to Enterprise Application Administrator if they occur. Assessment & Plan (05/08/2020 12:45 PM CREATIVE COORDINATOR): Has been on the current dose of [...] needed Assessment & Plan (08/10/2016 5:00 PM CREATIVE COORDINATOR): Hypothyroidism; improved clinically; better medication adherence 1. Orders Placed This Encounter Procedures TSH T4 TOTAL ANTI THYROID ANTIBODY PANEL 2. Obtain serum biochemistries at local laboratory following today's office appointment and fax results to Dr. Jeff Begum at [phone] (laboratory requisition given). 3. Outpatient Prescriptions Marked [...] 4.8 Assessment & Plan (06/17/2020 12:35 PM CREATIVE COORDINATOR): 13lb weight gain noted thus far. LGA [...] report. Assessment & Plan (05/08/2020 12:43 PM CREATIVE COORDINATOR): 2lb net weight gain noted thus far. [...] Dates Next Due MENINGOCOCCAL CONJUGATE (MCV4P) 03/19/2014 Social History Tobacco Use Types Packs/Day Years [...] Mass Index 42.63 01/12/2024 1:37 PM CDT Functional Status Functional Status Response Date of Assess ment Is person deaf or have serious hearing difficult y? No 03/11/2022 Is person blind or have serious difficulty seein g? No 03/11/2022 Does person have serious dif ficulty walking/climbing stairs? No 03/11/2022 Does person have difficulty dressing/bathing? No 03/11/2022 Does person have difficulty doing errands alone? No 03/11/2022 Cognitive Status Response Date of Assessm ent Does person have difficulty concentrating/remembering/making decisions? No 03/11/2022 Plan of Treatment Not on file Care Teams Manager Environmental Relationship Specialty Start Date End Date Mila Curtis MD [address] [place] [address] [place] [id number] PCP - General Family Medicine 02/28/15
--- OUTSIDE RECORDS SUMMARY | 2024-07-31 18:56 | XMS_ITS | Clinical Summary ---
Author Organization [facility] Address [address] [place] [address] Care Team Providers Care Proprietary Trader Name Role Phone Mila Curtis MD Primary Care Provider + Allergies No known active allergies Medications levothyroxine (SYNTHROID) 100 mcg tablet 1 tablet (100 mcg total) technical specialist cytology before breakfast 2 Active multivitamin capsule Take 1 capsule by mouth daily Active ondansetron (ZOFRAN) 4 mg tablet Take 1 tablet (4 mg total) by mouth every 4 (four) hours as needed for nausea or vomiting 90 tablet 1 2 Active Additional Information Patient not taking.Reported on 06/14/2024 21/iron fu/folic acid ( COMPLETE ORAL) Take by mouth QD Active levothyroxine (SYNTHROID) 150 mcg tablet Take 1 tablet (150 mcg total) by mouth technical specialist cytology before breakfast Active ferrous gluconate 324 mg (37.5 mg of elemental iron) tablet Take 1 tablet (324 mg total) by mouth daily 30 tablet 11 4 Active Cimzia 400 mg/2 mL (200 mg/mL x 2) syringe kit INJECT 2 SYRINGES UNDER THE SKIN EVERY 4 WEEKS 1 each 2 5 Active Active Problems Problem Noted Date Diagnosed Date Crohn's disease involving stomach 02/04/2022 Overview (06/13/2024): Year of diagnosis: 2018. Year symptoms began: 2019 (nausea, vomiting). Phenotype: Inflammatory (B1) without perianal disease. Distribution: upper GI disease (L4). Extraintestinal manifestations: none. Complications: none. Prior treatments: Humira (2018-spring 2021 d/t abs development), 6MP (stopped d/t headaches), IFX (Feb 2022-2023 d/t nonresponse), Imuran Current treatment: Cimzia (04/2023). Prior surgeries: n/a. Endoscopies: EGD/colonoscopy 2018 with biopsies showed granulomatous gastritis with no signs of colonic inflammation. EGD/colonoscopy February 2022 was normal with normal biopsies in colon; bx from EGD showed chronic gastritis most consistent with Crohn's disease. Imaging: n/a. Family History: n/a. Encounters Date Type Department Care Team Description 06/14/2024 2:30 PM [employer] Office Visit [facility] [address] [place] [address] [address] [place] [address] [place] [address] Terra Betancur MD Crohn's disease involving stomach (HCC) (Primary Dx) 05/18/2024 Orders Only [facility] [address] [place] [address] [address] [place] [address] [place] [address] October, Dee David RN Crohn's disease involving stomach (HCC) (Primary Dx); Routine health maintenance; High risk medications (not anticoagulants) long-term use from Last 3 Months Surgical History Surgery Date Site/Laterality Comments SECTION COLONOSCOPY UPPER GASTROINTESTINAL ENDOSCOPY Medical History Medical History Date Comments Crohn's disease (CMS/HCC) (HCC) Hypothyroidism Family History Medical History Relation Name Comments Hypertension Mother Relation Name Status Comments Mother Social History Tobacco Use Types Packs/Day Years Used Date Smoking Tobacco: Every Day Vaping Tobacco Cessation:Ready to Q uit: Not Asked; Counseling Given: Not Answered AUDIT-C Answer Date Recorded Q1: How often do you have a drink containing alc ohol? 2-4 times a month 02/20/2022 Q2: How many drinks containi ng alcohol do you have on a typical day when you are drinking? 1 or 2 02/20/2022 Q3: How often do you have si x or more drinks on one occasion? Never 02/20/2022 Comments No Sex and Gender Information Value Date Recorded Sex Assigned at Not on file Legal Sex Female 7:10 PM [employer] Gender Identity Not on file Sexual Orientation Not on file Obstetrics History Last Filed Vital Signs Vital Sign Reading Time Taken Comments Blood Pressure 110/72 06/14/2024 2:29 PM [employer] Pulse 66 06/14/2024 2:29 PM [employer] Temperature 36.8 C (98.3 F) 06/14/2024 2:29 PM [employer] Respiratory Rate 16 04/13/2023 11:25 AM [employer] Oxygen Saturation 97% 06/14/2024 2:29 PM [employer] Inhaled Oxygen Concentration - - Weight 119.7 kg (264 lb) 06/14/2024 2:29 PM [employer] Height 170.2 cm (5' 7 ) 06/14/2024 2:29 PM [employer] Body Mass Index 41.35 06/14/2024 2:29 PM [employer] Plan of Treatment Health Maintenance Due Date Last Done Comments Cervical Cancer Screening 2001 Depression Screening 2001 Hepatitis C Screening 2001 HPV Vaccines (2 - 3-dose series) 03/16/2018 02/17/20 18 Meningococcal B Vaccine (2 o f 2 - Bexsero SCDM 2-dose series) 08/16/2018 02/16/2018 Regular Well Visit/Exam 18-64 2019 Pneumococcal vaccine <65 (1 of 2 - PCV) 01/03/2020 Influenza Vaccine (#1) 2024 0, 05/13/2010, 04/17/2008 DTaP/Tdap/Td Vaccine (10 - T d or Tdap) 01/18/2034 01/19/2024, 08/25/2020, 03/06/2020, Additional history exists Varicella Vaccines Completed 05/13/2010, 10/02/2003 Hepatitis B Screening Completed 04/13/2023 , 2001, 2001, Additional history exists Insurance [facility] Advance Directives For more information, please contact: [phone] * Full Code (Latest Code Status on File) Date Activated Date Inactivated Comments 02/20/2022 9:32 AM 02/20/2022 4:23 PM Care Teams Proprietary Trader Relationship Specialty Start Date End Date Mila Curtis MD [address] [address] PCP - General Family Medicine 10/21/21
--- OUTSIDE RECORDS SUMMARY | 2024-07-31 18:56 | XMS_ITS | Patient Health Summary ---
Author Organization [facility] Address [address] [place] [address] Care Team Providers Care Interlocking Installer Name Role Phone Mila Curtis MD Primary Care Provider [phone] Note from [facility][note 3],non-owned Affiliates and Associated Physician Practices is amultiple site organization consisting of ambulatory clinics and hospital sitesin [place], [place], [place] and [place]. This disclosure is being madepursuant to the Care Everywhere program and may not contain all information available regarding this patient. Last updated 18.[facility] Allergies No known active allergies Medications * Be aware that medications may not be up to date on this document. Alwaysverify current medications with the patient. * levothyroxine (Synthroid) 100 MCG tablet Take 1 (one) tablet by mouth 2 times daily * ibuprofen (Motrin) 600 MG tablet(Started 03/13/2022) Take 1 (one) tablet by mouth every 6 hours as needed for Pain * ondansetron, disintegrating, (Zofran ODT) 4 MG tablet(Started 03/13/2022) Take 1 (one) tablet by mouth every 6 hours as needed for Nausea/Vomiting Allow tablet to dissolve on the tongue * Etonogestrel (NEXPLANON SC) 1 (one) time * oxyCODONE, immediate release, (Roxicodone) 5 MG tablet(Started 03/31/2022) Take 1 (one) tablet by mouth every 4 hours as needed Active Problems Problem Noted Date Diagnosed Date Mucinous cystadenoma of ovary, 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 S/P unilateral salpingo-oophorectomy 03/31/2022 Nausea/vomiting in 03/13/2020 Rash and nonspecific skin eruption 03/13/2020 Low vitamin D level 03/11/2020 Crohn's disease involving stomach 02/02/2020 Maternal Crohn's disease affecting 04/2020 Abnormal liver enzymes 12/16/2017 Maternal hypothyroidism, antepartum 06/17/2016 Obesity complicating Resolved Problems Problem Noted Date Diagnosed Date Resolved Date Post-operative state 03/11/2022 022 Supervision of high-risk pre gnancy of young primigravida 03/11/2020 03/31/2022 Crohn's disease 05/04/2018 03/13/2020 Immunizations * MENINGOCOCCAL CONJUGATE (MCV4P)(Given 03/19/2014) Social History Tobacco Use Types Packs/Day Years [...] Mass Index 42.63 01/12/2024 1:37 PM CDT Procedures * SONOGRAM - COMPLETE(Performed 01/31/2024) Performed for Encounter for ultrasound to assess growth (HCC), Subclinical hypothyroidism, Crohn's disease in remission (HCC) * SONOGRAM - COMPLETE(Performed 01/12/2024) Performed for Encounter for anatomic survey (HCC), Crohn's disease in remission (HCC), History of ovarian cystectomy, Maternal hypothyroidism, antepartum (HCC) * CARDIAC RHYTHM STRIP ORDER(Performed 03/16/2022) * IMAGING/RADIOLOGY/XRAY RESULTS ORDER(Performed 03/16/2022) * PHOSPHORUS BLOOD(Performed 03/13/2022) Performed for Post-operative state * MAGNESIUM BLOOD(Performed 03/13/2022) Performed for Post-operative state * BASIC METABOLIC PANEL (CALCIUM TOTAL)(Performed 03/13/2022) Performed for Post-operative state * CBC W AUTO DIFFERENTIAL(Performed 03/13/2022) Performed for Post-operative state * PHOSPHORUS BLOOD(Performed 03/12/2022) Performed for Post-operative state * MAGNESIUM BLOOD(Performed 03/12/2022) Performed for Post-operative state * BASIC METABOLIC PANEL (CALCIUM TOTAL)(Performed 03/12/2022) Performed for Post-operative state * CBC W AUTO DIFFERENTIAL(Performed 03/12/2022) Performed for Post-operative state * PT EVAL AND TREAT(Performed 03/11/2022) Performed for Post-operative state * PATHOLOGY TISSUE EXAM (STL)(Performed 03/11/2022) Performed for Diagnosis unknown * ENDOTRACHEAL TUBE NOTE(Performed 03/11/2022) * PERIPHERAL BLOCK(Performed 03/11/2022) * [place] EXPLORATORY OF ABDOMEN(Performed 03/11/2022) Performed for Diagnosis unknown * HCG URINE QUAL POCT NOTIFICATION(Performed 03/11/2022) Performed for Preop examination * HCG URINE QUALITATIVE - POCT (IP) INTERFACED(Performed 03/11/2022) * BLOOD TYPE VERIFICATION(Performed 03/11/2022) * TYPE + SCREEN PANEL(Performed 03/11/2022) * COMPREHENSIVE METABOLIC PANEL(Performed 03/06/2022) Performed for Pre-op testing * CBC W AUTO DIFFERENTIAL(Performed 03/06/2022) Performed for Pre-op testing * LAB RESULTS ORDER(Performed 03/06/2022) * LAB RESULTS ORDER(Performed 02/17/2022) * CANCER ANTIGEN (CA) 19-9(Performed 02/17/2022) * CEA BLOOD(Performed 02/17/2022) * LDH BLOOD(Performed 02/17/2022) Performed for Pelvic mass in female * ALPHA FETOPROTEIN BLOOD TUMOR MARKER(Performed 02/17/2022) Performed for Pelvic mass in female * CANCER ANTIGEN (CA)125 BLOOD(Performed 02/17/2022) Performed for Pelvic mass in female * INHIBIN B(Performed 02/17/2022) Performed for Pelvic mass in female * SONOGRAM - COMPLETE(Performed 07/26/2020) Performed for Maternal hypothyroidism, antepartum (HCC), Abnormal liver enzymes, Obesity affecting , antepartum (HCC), Supervision of high-risk of young primigravida (HCC) * SONOGRAM - COMPLETE(Performed 06/17/2020) Performed for Maternal hypothyroidism, antepartum (HCC), Abnormal liver enzymes, Obesity affecting in second trimester (HCC), Maternal Crohn's disease affecting in second trimester (HCC), Supervision of high-risk of young primigravida (HCC) * TSH(Performed 05/10/2020) * T4 FREE(Performed 05/10/2020) * URINALYSIS W/MICROSCOPIC NO CULTURE(Performed 05/10/2020) * CULTURE URINE(Performed 05/10/2020) * SONOGRAM - COMPLETE(Performed 05/08/2020) Performed for Maternal hypothyroidism, antepartum (HCC), Abnormal liver enzymes, Obesity affecting in second trimester (HCC), Maternal Crohn's disease affecting in second trimester (HCC), Supervision of high-risk of young primigravida (HCC) * SONOGRAM - COMPLETE(Performed 04/10/2020) Performed for Maternal hypothyroidism, antepartum (HCC), Obesity affecting in second trimester (HCC), Maternal Crohn's disease affecting in second trimester (HCC), Supervision of high-risk of young primigravida (HCC) * SONOGRAM - COMPLETE(Performed 03/13/2020) Performed for Maternal Crohn's disease affecting in second trimester (HCC) * HEMOGLOBIN A1C(Performed 02/13/2020) Performed for , unspecified gestational age (HCC) * FERRITIN(Performed 02/13/2020) Performed for , unspecified gestational age (HCC) * IRON + TRANSFERRIN PANEL(Performed 02/13/2020) Performed for , unspecified gestational age (HCC) * VITAMIN B12(Performed 02/13/2020) Performed for Maternal Crohn's disease affecting in first trimester (HCC) * VITAMIN D 25-HYDROXY(Performed 02/13/2020) Performed for Maternal Crohn's disease affecting in first trimester (HCC) * T4 FREE(Performed 02/13/2020) Performed for Acquired hypothyroidism * TSH(Performed 02/13/2020) Performed for Acquired hypothyroidism * GLUCOSE PROTEIN KETONE URINE - POINT OF CAR(Performed 02/13/2020) Performed for , unspecified gestational age (HCC) * GLUCOSE PROTEIN KETONE URINE - POINT OF CAR(Performed 01/16/2020) Performed for , unspecified gestational age (HCC) * SONOGRAM - COMPLETE(Performed 01/16/2020) * NH LIVER ELASTOGRAPHY(Performed 01/09/2019) Performed for Elevated liver enzymes * T4 TOTAL(Performed 08/10/2016) Performed for Acquired hypothyroidism * TSH(Performed 08/10/2016) Performed for Acquired hypothyroidism * THYROID AB PANEL (TPO AB+THYROGLOB AB)(Performed 08/10/2016) Performed for Acquired hypothyroidism * LAB RESULTS ORDER(Performed 06/24/2016) Results * SONOGRAM - COMPLETE (01/31/2024 1:04 PM CDT) Only the most recent of8 resultswithin the time period is included. Anatomical Region Laterality Modality Other 01/31/2024 1:04 PM CDT Narrative 01/31/2024 2:08 PM CDT [facility] [place] PHONE: FAX: Pat. Name: SILVIA KERN Nissa Dougherty. No: [id number] Study Date: 01/31/2024 1:04pm , Age: 07 2000, 24 Pregnancies: 2, Para 1 Height: 67 in Weight: 266 lb LMP: Unknown GA by Base: 34w4d LEONILA: 03/09/2024 GA by US: 37w0d LEONILA: 02/21/2024 GA Selected: 34w4d ([facility]) LEONILA: 03/09/2024 Referring MD: Mik Barriga MD Powder Guard: Ellie Duran RDMS CPT4: 98318 BMI: 41.66 Hist/Ind: Incomplete anatomy Hypothyroidism Ovarian cystectomy Crohn's disease G1 LGA fetus MEASUREMENTS & AGE GROWTH EVALUATION Measurement GA Range Srce %for GA Ratios ----- ---- ------- BPD 9.1 cm 37w0d (13w7w-19s6g) Hadl BPD 96% FL/BPD 0.77 (0.71 - 0.87) HC 34.0 cm 39w0d (58x3k-24i3w) Hadl HC 97% FL/AC 0.21 (0.20 - 0.24) AC 33.8 cm 37w5d (01z3h-12j7j) Hadl AC >99 HC/AC 1.00 (0.94 - 1.13) FL 7.0 cm 36w0d (17f7k-55g4z) Hadl FL 77% CI 0.75 (0.70 - 0.86) HL 6.5 cm 37w5d (94w5h-45x8d) Paul HL >95 GA for sonogram 37w0d (57o6h-48g0y) Weight Estimate: based on (BPD,HC,AC,FL) Hadlock Weight: 3196 gm (2729-3663gm) Had : 7lbs, 0oz Normal: 2511 gm (1883-3139gm) Had Wt% >97 for 34w4d Heart Rate: 132 bpm Amniotic Fluid Index: 13.9cm (08.0-24.9) Q1: 1.1cm Q2: 4.5cm Q3: 5.4cm Q4: 2.8cm PROCEDURE, TECHNIQUE Technique: transabdominal EVAL, PLACENTA Presentation: cephalic Placenta: anterior Heart Rate: 132 bpm Amniotic Fluid Volume: normal Anatomy!Normal!Abnormal!Suboptimal!Prev. Seen!Comments Cranium ! ! ! ! x ! Mdl (CSP/Thal! ! ! ! x ! Ventricles ! ! ! ! x ! Choroid Plexu! ! ! ! x ! Cerebellum ! ! ! ! x ! Cisterna M. ! ! ! x ! ! Orbits ! ! ! x ! ! Profile ! ! ! ! x ! Nasal Bone ! ! ! ! x ! Lip ! ! ! ! x ! Spine ! ! ! ! x ! Lungs ! ! ! ! x ! 4 Chamber Hea! ! ! ! x ! LVOT ! x ! ! ! ! RVOT ! ! ! ! x ! 3 Vessel View! x ! ! ! ! 3 Vessel Trac! ! ! ! x ! Cross-over ! x ! ! ! ! Ductal Arch ! ! ! ! x ! Aortic Arch ! ! ! ! x ! Caval View ! x ! ! ! ! Situs ! ! ! ! x ! Diaphragm ! ! ! ! x ! Stomach ! x ! ! ! x ! Bowel ! ! ! ! x ! Kidneys ! x ! ! ! x ! Bladder ! x ! ! ! x ! 3 Vessel Cord! ! ! ! x ! Cord In! ! ! x ! ! Upper Extremi! ! ! ! x ! Hands ! x ! ! ! !unremarkable right, left previously seen Lower Extremi! ! ! ! x ! Feet ! ! ! ! x ! External Meagan! ! ! x ! ! Placental Cor! ! ! ! x ! Maternal Adne! ! ! ! x ! CLINICAL SUMMARY A single fetus is seen in cephalic presentation. The measurements today are consistent with large for gestational age. The LEONILA is based on LMP. The amniotic fluid volume is within normal limits. IMPRESSION: Single, live, intrauterine at 34w4d size is large for gestational age (LGA) Amniotic fluid volume: within normal limits No malformations were seen within the limitations of ultrasound. RECOMMEND: Begin weekly BPP's at 36 weeks due to maternal obesity (to be done at primary OB office) Ultrasound in 4 weeks for growth assessment and to attempt to complete anatomy if patient remains undelivered Thank you for allowing us the opportunity to care for your patient. Tl Haas MD <Electronic Signature> 01/31/2024 02:08pm Nissa Larson MD [facility] ORDERABLES * CARDIAC RHYTHM STRIP ORDER (03/16/2022 10:58 PM CDT) Narrative 03/16/2022 10:58 PM CDT Ordered by an unspecified provider. Scanned Document CARDIAC SERVICES ORD ERABLES * IMAGING RADIOLOGY XRAY RESULTS ORDER (03/16/2022 4:45 PM CDT) Anatomical Region Laterality Modality Other Narrative 03/16/2022 4:45 PM CDT Ordered by an unspecified provider. Scanned Document IMAGING * (ABNORMAL) CBC W AUTO DIFFERENTIAL (03/13/2022 5:08 AM CDT) Only the most recent of3 resultswithin the time period is included. WBC 8.3 4.4 - 10.7 x10E9/L 03/13/2022 5:43 AM CDT [facility] WBC Corrected 03/13/2022 5:43 AM CDT [facility] RBC 4.08 3.80 - 5.20 x10E12/L 03/13/2022 5:43 AM CDT [facility] Hemoglobin 10.5(L) 12.0 - 15.6 gm/dL 03/13/2022 5:43 AM CDT [facility] Hematocrit 33.8(L) 35.9 - 45.5 % 03/13/2022 5:43 AM CDT [facility] MCV 82.8 80.7 - 98.3 fl 03/13/2022 5:43 AM CDT [facility] MCH 25.7(L) 26.7 - 34.0 pg 03/13/2022 5:43 AM CDT [facility] MCHC 31.1 30.8 - 35.9 gm/dL 03/13/2022 5:43 AM CDT [facility] Platelet Count 185 153 - 416 x10E9/L 03/13/2022 5:43 AM CDT [facility] RDW-CV 13.6 12.1 - 14.9 % 03/13/2022 5:43 AM CDT [facility] MPV 11.3 9.4 - 12.9 fl 03/13/2022 5:43 AM CDT [facility] Neutrophils % 54.1 44.0 - 73.0 % 03/13/2022 5:43 AM CDT [facility] Lymphocytes % 38.7 20.0 - 43.0 % 03/13/2022 5:43 AM CDT [facility] Monocytes % 5.7 5.0 - 13.0 % 03/13/2022 5:43 AM CDT [facility] Eosinophils % 0.6 0.0 - 6.0 % 03/13/2022 5:43 AM CDT [facility] Basophils % 0.5 0.0 - 2.0 % 03/13/2022 5:43 AM CDT [facility] Immature Granulocytes 0.4 0 - 1 % 03/13/2022 5:43 AM CDT [facility] Neutrophil Absolute 4.50 2.01 - 7.14 x10E9/L 03/13/2022 5:43 AM CDT [facility] Lymphocytes Absolute 3.21 1.07 - 3.94 x10E9/L 03/13/2022 5:43 AM CDT [facility] Monocytes Absolute 0.47 0.26 - 1.07 x10E9/L 03/13/2022 5:43 AM CDT [facility] Eosinophils Absolute 0.05 0 - 0.47 x10E9/L 03/13/2022 5:43 AM CDT [facility] Basophils Absolute 0.04 0 - 0.08 x10E9/L 03/13/2022 5:43 AM CDT [facility] Immature Granulocytes Absolute 0.03 0.00 - 0.06 x10E9/L 03/13/2022 5:43 AM CDT [facility] nRBC Auto 0 /100 WBC 03/13/2022 5:43 AM CDT [facility] Blood BLOOD SPECIMEN / Unknown Lab Venipuncture / Unknown 03/13/2022 5:08 AM CDT 03/13/2022 5:35 AM CDT Sil Fleming MD LAB - HEMATOLOGY O RDERABLES Performing Organization Address City/State/[facility] Co de Phone Number [facility] [address] [place] [address] * (ABNORMAL) BASIC METABOLIC PANEL (CALCIUM TOTAL) (03/13/2022 5:08 AM CDT) Only the most recent of2 resultswithin the time period is included. Glucose 81 70 - 105 mg/dL 03/13/2022 6:53 AM CDT [facility] Sodium 140 136 - 145 mmol/L 03/13/2022 6:53 AM CDT [facility] Potassium 3.9 3.5 - 5.1 mmol/L 03/13/2022 6:53 AM CDT [facility] Chloride 111(H) 98 - 107 mmol/L 03/13/2022 6:53 AM CDT [facility] CO2 22(L) 23 - 31 mmol/L 03/13/2022 6:53 AM CDT [facility] Calcium 8.4 8.4 - 10.4 mg/dL 03/13/2022 6:53 AM CDT [facility] Anion Gap 7(L) 8 - 18 mmol/L 03/13/2022 6:53 AM CDT [facility] BUN 10 7 - 18.7 mg/dL 03/13/2022 6:53 AM CDT [facility] Creatinine 0.72 0.57 - 1.11 mg/dL 03/13/2022 6:53 AM CDT [facility] eGFR by CKD-EPI >90 >=90 mL/min/1.7 3 m2 03/13/2022 6:53 AM CDT [facility] Blood BLOOD SPECIMEN / Unknown Lab Venipuncture / Unknown 03/13/2022 5:08 AM CDT 03/13/2022 5:36 AM CDT Sil Fleming MD LAB - CHEMISTRY OR DERABLES Performing Organization Address [facility] de Phone Number [facility] [address] [place] [id number] * PHOSPHORUS BLOOD (03/13/2022 5:08 AM CDT) Only the most recent of2 resultswithin the time period is included. Phosphorus 3.7 2.3 - 4.7 mg/dL 03/13/2022 6:53 AM CDT [facility] Blood BLOOD SPECIMEN / Unknown Lab Venipuncture / Unknown 03/13/2022 5:08 AM CDT 03/13/2022 5:36 AM CDT Sil Fleming MD LAB - CHEMISTRY OR DERABLES Performing Organization Address [facility] de Phone Number [facility] [address] [place] [phone] * MAGNESIUM BLOOD (03/13/2022 5:08 AM CDT) Only the most recent of2 resultswithin the time period is included. Magnesium 1.9 1.6 - 2.6 mg/dL 03/13/2022 6:53 AM CDT [facility] Blood BLOOD SPECIMEN / Unknown Lab Venipuncture / Unknown 03/13/2022 5:08 AM CDT 03/13/2022 5:36 AM CDT Sil Fleming MD LAB - CHEMISTRY OR DERABLES [facility] [address] [id number] * PATHOLOGY TISSUE EXAM (STL) (03/11/2022 12:55 PM CDT) Case Report Surgical Pathology Report Case: [id number] Authorizing Provider: Sil Fleming MD Collected: 03/11/2022 12:55 PM Ordering Location: [facility] Received: 03/11/2022 12:59 PM Pathologist: Ronel Trinh MD Specimen: Fallopian Tube, left tube and ovary 10:58 AM CDT [facility] Final Diagnosis Ovary, left, oophorectomy (including FSA1-2) - Mucinous cystadenoma Fallopian tube, left, salpingectomy - No histopathologic abnormality 10:58 AM CDT [facility] Clinical History The patient is a 22-year-old woman. Operative procedure: left salpingo-oophorectomy . 10:58 AM T [facility] Intraoperative Consultation The frozen section diagnosis is as rendered below. 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 Fleming at [address] Trinh. 10:58 AM CDT [facility] Gross Description The requisition and specimen(s) are identified with patient's name, Silvia Kern. Received fresh then placed in formalin, specimen A, left tube and ovary , is a 2750 g intact ovary and fallopian tube. The ovary measures 23 x 20 x 10 cm with a smooth outer surface. The fallopian tube is adherent to the ovarian surface, the tubular structure is lost but the fimbria is identified. Opening shows the ovary contains kang to translucent mildly viscous fluid and there is multicystic lesion (10 x 10 x 10 cm) attached to one pole of the ovarian wall. The cysts ranging in size 1.0 to 7.5 cm in greatest dimension and contain translucent to mildly viscous fluid. There is no solid component identified. Tablet Machine Operator sections are submitted as follows: A1-2 frozen section remnant of FS A1 and FS A2, A3-11 cystic lesion, A 12 fimbria, A13 fallopian tube, A14-18 additional sections of mass. WM 10:58 AM [facility] Microscopic Description Microscopic examination substantiates the above diagnosis. Permanent sections confirm the frozen section diagnosis. 10:58 AM [facility] Disclaimer All histochemical and/or immunohistochemical results are interpreted with controls that demonstrate appropriate staining reactions before reporting results. Note on use of immunocytochemistry reagents: This test was developed and its performance characteristic determined by [facility], Department of Laboratory Medicine. It has not been cleared or approved by the U.S. Food and Drug Administration (FDA). The FDA has determined that such clearance or approval is not necessary. The test is used for clinical purpose. It should not be regarded as investigational or for research. This laboratory is certified to perform high complexity testing. The performance characteristics of the IHC/CHRISSY assays have been validated on formalin-fixed paraffin embedded tissues only. The assays have not been validated on decalcified tissues. Results should be interpreted with caution. 10:58 AM T [facility] Embedded Images 10:58 AM T [facility] Pathology/Cytolo gy FALLOPIAN TUBE PART / Unknown 03/11/2022 12:55 PM CDT 03/11/2022 12:59 PM CDT Comment:Pre-op diagnosis: Diagnosis unknown [[id number]] Sil Fleming MD LAB - PATHOLOGY/CY TOLOGY ORDERABLES [facility] [address] [place] [id number] * ETT LINE PERFORMABLE (03/11/2022 12:23 PM CDT) Narrative Laura Orosco APRN-CRNA - 03/11/2022 12:23 PM CDT Laura Orosco APRN-CRNA 03/11/2022 12:35 PM Endotracheal Tube Placement: Patient Location: OR. Intubation Event Date/Time: 03/11/2022 12:23 PM Procedure: intubation ([id number]). Procedure Section: Sedation: under general anesthesia. Indications for Airway Management: anesthesia Induction: standard IV Patient Position: supine Mask Ventilation: easy. Blade Type: Barriga Blade Size: 2 Laryngoscopy View: grade 1 (full cords) Tube: endotracheal tube Placement: oral Tube Size (MM): 7 Depth of Insertion (CM): 22 Measured From: lips Cuff volume (mL): 8 Cuff Inflated With: air Number of Attempts: 1. Placement Verified By: direct visualization, bilateral breath sounds, chest auscultation and CO2 monitor CXR Findings: ETT in proper place. Tube secured with: adhesive tape. Dentition unchanged? Yes Difficult Airway? No. Procedure Start Time: 03/11/2022 12:23 PM. Procedure End Time: 03/11/2022 12:23 PM. Procedure Total Time: 0 minutes. Staff Section Anesthesia Provider: Laura Orosco APRN-CRNA, Performed the procedure Harvinder Pettit DO GENERAL ANESTHESIA ORDERABLES * Peripheral Nerve Block (03/11/2022 12:01 PM CDT) Harvinder Barreto DO - 03/11/2022 12:01 PM CDT Harvinder Pettit DO 03/11/2022 1:44 PM Peripheral Nerve Block Procedure: Peripheral Nerve Block Patient Location: Pre-op Preprocedure Section: Indications: at surgeon's request, at patient's request and postop pain management. Pre-anesthetic Checklist: Patient identified, IV Checked, Site examined and clear, Risks and benefits discussed, Surgical consent verified, Monitors and equipment, Time-out performed, Informed consent obtained, Pre-op evaluation done, Questions answered/anesthesia questions answered, Allergies reviewed and Removal hand/wrist jewelry Monitors: BP, Pulse Ox and EKG. Patient Condition: sedated, meaningful contact maintained throughout procedure Patient Position: supine Patient Sedated? Yes Sedation Type: mild Sedation Agents: fentaNYL (PF) (SUBLIMAZE) injection, 50 mcg midazolam (VERSED) injection, 2 mg Procedure Section Laterality: bilateral Block Performed: rectus sheath Prep: Chloraprep Strerile Field: gloves, mask and hat/cap Needle Type: Echogenic insultaed Needle Gauge: 21 Needle Length: 80 mm Catheter? No Ultrasound Guided? Yes Technique: in plane Visualization: Preliminary scan performed, Important anatomical structures identified, Needle tip visualized throughout the procedure, Target identified, No intraneural or intravascular puncture occurred, Ultrasound image in chart, Local visualized surrounding nerve on ultrasound and Hydrodissection utilized Injection was made incrementally with constant monitoring and aspirations every 5 mL's Injection Assessment: Slow fractionated injection Block Agents or Additives used? Yes Block agents used: bupivacaine 0.5% - EPINEPHrine 1:200,000 (PF) injection, 20 mL bupivacaine liposome (EXPAREL) 1.3 % injection, 20 mL sodium chloride 0.9 % SOLN, 20 mL Procedure Tolerance: tolerated well and no immediate complications Assessment: completed Procedure Start Time: 03/11/2022 12:01 PM. Procedure End Time: 03/11/2022 12:10 PM. Procedure Total Time: 9 minutes. Staff Section Anesthesia Provider: Harvinder Pettit DO, Performed the procedure Harvinder Pettit DO GENERAL ANESTHESIA ORDERABLES * HCG URINE QUAL POCT NOTIFICATION (03/11/2022 11:02 AM CDT) Comment Notification Label Only - See Separate Report 03/11/2022 11:02 AM CDT [facility] Urine URINE / Unknown 9:55 AM CDT Sil Fleming MD LAB - URINALYSIS O RDERABLES [facility] [address] [place] [address] * HCG URINE QUALITATIVE - POCT (IP) INTERFACED (03/11/2022 10:24 AM CDT) HCG Qual Urine Negative Negative 03/11/2022 10:30 AM CDT [facility] Urine URINE / Unknown 03/11/2022 1 0:24 AM CDT 03/11/2022 10:30 AM CDT Sil Fleming MD LAB - POINT OF CAR E ORDERABLES Performing Organization Address City/[facility]/ZIP Co de Phone Number [facility] [address] [place] [address] * BLOOD TYPE VERIFICATION (03/11/2022 10:20 AM CDT) ABO Rh O POS 03/11/2022 10:59 AM CDT [facility] Blood Bank BLOOD SPECIMEN / Unknown Venipuncture / Unknown 03/11/2022 10:20 AM CDT 03/11/2022 10:28 AM CDT Harvinder Pettit DO LAB - BLOOD BANK OR DERABLES Performing Organization Address [facility] [facility] Co de Phone Number [facility] [address] [place] [address] * TYPE + SCREEN PANEL (03/11/2022 10:13 AM CDT) ABO Rh O POS 03/11/2022 10:57 AM CDT [facility] Comment:No history; collect retype. Antibody Screen NEG 10:57 AM CDT [facility] Blood Bank BLOOD SPECIMEN / Unknown Venipuncture / Unknown 03/11/2022 10:13 AM CDT 03/11/2022 10:17 AM CDT Danielles Tatomikristin DO LAB - BLOOD BANK OR DERABLES Performing Organization Address City/[facility]/ZIP Co de Phone Number [facility] [address] [place] [address] * COMPREHENSIVE METABOLIC PANEL (03/06/2022 2:26 PM CDT) Glucose 95 65 - 139 mg/dL [facility] Comment: Non-fasting reference interval BUN 13 7 - 25 mg/dL [facility] Creatinine 0.65 0.50 - 0.96 mg/dL [facility] eGFR by Cystatin C 128 > OR = 60 mL/min/1. 73m2 [facility] Comment: The eGFR is based on the CKD-EPI 2020 equation. To calculate the new eGFR from a previous Creatinine or Cystatin C result, go to https://www.kidney.org/professionals/ kdoqi/gfr%5Fcalculator BUN/Creatinine Ratio NOT APPLICABLE 6 - 22 (calc) [facility] Sodium 139 135 - 146 mmol/L [facility] Potassium 3.8 3.5 - 5.3 mmol/L [facility] Chloride 107 98 - 110 mmol/L [facility] CO2 25 20 - 32 mmol/L [facility] Calcium 9.2 8.6 - 10.2 mg/dL [facility] Protein Total 6.5 6.1 - 8.1 g/dL [facility] Albumin 3.9 3.6 - 5.1 g/dL [facility] Globulin Total 2.6 1.9 - 3.7 g/dL (calc) [facility] Albumin/Globuli n Ratio 1.5 1.0 - 2.5 (calc) [facility] Bilirubin Total 0.2 0.2 - 1.2 mg/dL [facility] Alkaline Phosphatase 33 31 - 125 U/L [facility] AST 15 10 - 30 U/L [facility] ALT 18 6 - 29 U/L [facility] Comment: Test Performed at: [facility] [id number] [place] [address] KALI MORENO DO,MPH Blood BLOOD SPECIMEN / Unknown 03/06/2022 2:26 PM CDT 03/06/2022 2:30 PM CDT Sil Fleming MD LAB - CHEMISTRY OR DERABLES [facility] [address] [place] [address] * LAB RESULTS ORDER (03/06/2022) Only the most recent of3 resultswithin the time period is included. 03/06/2022 Narrative 03/06/2022 Ordered by an unspecified provider. Scanned Document LAB - THERAPEUTIC DR SOLANO MONITORING ORDERABLES * INHIBIN B (02/17/2022) Inhibin B 23 pg/mL [facility] Comment: REFERENCE RANGE for Inhibin B: Age: Male: Female: 5 - 9.9 years 21 - 166 pg/mL < or = 18 pg/mL 10 - 13.9 years 41 - 328 pg/mL < or = 86 pg/mL 14 - 17.9 years 54 - 295 pg/mL < or = 123 pg/mL >= 18 years 47 - 308 pg/mL Female: Pre-menopausal <153 pg/mL Post-menopausal <10 pg/mL Values obtained from different assay methods cannot be used interchangeably. Inhibin B levels, regardless of value, should not be interpreted as absolute evidence of the presence or absence of disease. This test was developed and its analytical performance characteristics have been determined by [employer]. It has not been cleared or approved by the FDA. This assay has been validated pursuant to the CLIA regulations and is used for clinical purposes. Test Performed at: [facility] [address] [address] BRIANDA POPE MD Blood BLOOD SPECIMEN / Unknown 02/17/2022 02/17/2022 2:36 PM CDT Sil Fleming MD LAB - SEROLOGY ORD ERABLES Performing Organization Address [facility] Phone Number [facility] [address] [place] [address] * CANCER ANTIGEN (CA) 19-9 (02/17/2022) [place] 19-9 18 <34 U/mL [facility] Comment: This test was performed using the Siemens chemiluminescent method. Values obtained from different assay methods cannot be used interchangeably. CA 19-9 levels, regardless of value, should not be interpreted as absolute evidence of the presence or absence of disease. Test Performed at: [facility] [place] [address] [place] [address] KALI MORENO DO,MPH 02/17/2022 02/17/2022 2:3 6 PM CDT Sil Fleming MD LAB - CHEMISTRY OR DERABLES Performing Organization Address City/State/[facility] de Phone Number [facility] [phone] [place] [address] * CANCER ANTIGEN (CA)125 BLOOD (02/17/2022) [facility] CA 125 15 <35 U/mL [facility] Comment: This test was performed using the Siemens Chemiluminescent method. Values obtained from different assay methods cannot be used interchangeably. CA 125 levels, regardless of value, should not be interpreted as absolute evidence of the presence or absence of disease. Test Performed at: [facility] [address] [place] [address] KALI MORENO DO,MPH Blood BLOOD SPECIMEN / Unknown 02/17/2022 02/17/2022 2:36 PM CDT Sil Fleming MD LAB - CHEMISTRY OR DERABLES Performing Organization Address [facility] [place] [address] * ALPHA FETOPROTEIN BLOOD TUMOR MARKER (02/17/2022) [facility] Alpha-Fetoprotein Tumor Marker 1.3 ng/mL [facility] Comment: Reference Range: <6.1 The use of AFP as a tumor marker in females is not recommended. This test was performed using the Dominic Brentford chemiluminescent method. Values obtained from different assay methods cannot be used interchangeably. AFP levels, regardless of value, should not be interpreted as absolute evidence of the presence or absence of disease. REPORT COMMENT: FASTING:NO COLLECTION REQUIREMENTS NOT MET. PATIENT ADVISED TO RETURN. Test Performed at: [facility] [address] [address] LAMONT LAMAR MD Blood BLOOD SPECIMEN / Unknown 02/17/2022 02/17/2022 2:36 PM CDT Sil Fleming MD LAB - CHEMISTRY OR DERABLES Performing Organization Address [facility] de Phone Number [address] [address] * LDH BLOOD (02/17/2022) [facility] LD-Total 159 100 - 200 U/L [facility] Comment: Test Performed at: [address] [place] [address] KALI MORENO DO,MPH Blood BLOOD SPECIMEN / Unknown 02/17/2022 02/17/2022 2:36 PM CDT Sil Fleming MD LAB - CHEMISTRY OR DERABLES Performing Organization Address [facility] Co de Phone Number [facility] [phone] [place], [place] [id number] * CEA BLOOD (02/17/2022) Pathologist [facility] CEA 0.8 ng/mL [facility] Comment: Non-Smoker: <2.5 Smoker: <5.0 This test was performed using the Siemens chemiluminescent method. Values obtained from different assay methods cannot be used interchangeably. CEA levels, regardless of value, should not be interpreted as absolute evidence of the presence or absence of disease. Test Performed at: [place] [place] [address] KALI MORENO DO,MPH 02/17/2022 02/17/2022 2:3 6 PM CDT Sil Fleming MD LAB - CHEMISTRY OR DERABLES Performing Organization Address [facility] de Phone Number [place] [phone] * (ABNORMAL) URINALYSIS W/MICROSCOPIC NO CULTURE (05/10/2020 2:29 PM NURSING HOME ASSISTANT ADMINISTRATOR) Pathologist [facility] Color UA YELLOW YELLOW [facility] Appearance CLEAR CLEAR [facility] Specific [place] UA 1.006 1.001 - 1.035 [facility] pH UA 7.5 5.0 - 8.0 [facility] Glucose UA NEGATIVE NEGATIVE [facility] Bilirubin UA NEGATIVE NEGATIVE [facility] Ketone UA NEGATIVE NEGATIVE [facility] Blood UA NEGATIVE NEGATIVE [facility] Protein UA NEGATIVE NEGATIVE [facility] Nitrite UA NEGATIVE NEGATIVE [facility] Leukocyte UA TRACE(A) NEGATIVE [facility] WBC UA 0-5 < OR = 5 /HPF [facility] RBC UA 0-2 < OR = 2 /HPF [facility] Epithelial Cell UA 6-10(A) < OR = 5 /HPF [facility] Bacteria UA NONE SEEN NONE SEEN /HPF [facility] Hyaline Casts NONE SEEN NONE SEEN /LPF [facility] Comment: Test Performed at: [place] [place] [address] KALI MORENO DO,MPH 05/10/2020 2:29 PM NURSING HOME ASSISTANT ADMINISTRATOR 05/10/2020 2:32 PM NURSING HOME ASSISTANT ADMINISTRATOR Ally Reddy APRN-ANKITA LAB - URINALYSI S ORDERABLES Performing Organization Address [facility] Co de Phone Number [address] [address] * CULTURE URINE (05/10/2020 2:29 PM NURSING HOME ASSISTANT ADMINISTRATOR) Pathologist [facility] Culture [facility] Comment: CULTURE, URINE, ROUTINE Micro Number: [id number] Test Status: Final Specimen Source: URINE, CLEAN CATCH Specimen Quality: Adequate Result: Growth of mixed nicole was isolated, suggesting probable contamination. No further testing will be performed. If clinically indicated, recollection using a method to minimize contamination, with prompt transfer to Urine Culture Transport Tube, is recommended. REPORT COMMENT: FASTING:NO Test Performed at: [facility] [address] MOSES ARANGO MD 05/10/2020 2:29 PM NURSING HOME ASSISTANT ADMINISTRATOR 05/10/2020 2:32 PM NURSING HOME ASSISTANT ADMINISTRATOR Ally Reddy APRN-ANKITA LAB - MICROBIOL OGY ORDERABLES Performing Organization Address [facility] Co de Phone Number [place] [phone] * (ABNORMAL) TSH (05/10/2020 2:29 PM NURSING HOME ASSISTANT ADMINISTRATOR) Only the most recent of3 resultswithin the time period is included. Pathologist [facility] TSH 9.51(H) mIU/L [facility] Comment: Reference Range 1-19 Years 0.50-4.30 Ranges First trimester 0.26-2.66 Second trimester 0.55-2.73 Third trimester 0.43-2.91 Test Performed at: [facility] [address] [place] [address] KALI MORENO DO,MPH 05/10/2020 2:29 PM NURSING HOME ASSISTANT ADMINISTRATOR 05/10/2020 2:32 PM NURSING HOME ASSISTANT ADMINISTRATOR Ally Reddy APRN-ANKITA LAB - CHEMISTRY ORDERABLES Performing Organization Address City/[facility]/ZIP Co de Phone Number [facility] [address] [place] [address] * T4 FREE (05/10/2020 2:29 PM NURSING HOME ASSISTANT ADMINISTRATOR) Only the most recent of2 resultswithin the time period is included. Pathologist [facility] T4 Free 1.1 0.8 - 1.4 ng/dL [facility] Comment: Test Performed at: [facility] [address] [place] [address] KALI MORENO DO,MPH 05/10/2020 2:29 PM NURSING HOME ASSISTANT ADMINISTRATOR 05/10/2020 2:32 PM NURSING HOME ASSISTANT ADMINISTRATOR Ally Marcumjanes [facility] LAB - CHEMISTRY ORDERABLES Performing Organization Address [facility] Co de Phone Number [facility] [address] [place] [address] * HEMOGLOBIN A1C (02/13/2020 2:29 PM CDT) [facility] Hemoglobin A1c 4.8 4.2 - 5.6 % 02/13/2020 2:59 PM CDT [facility] Estimated Average Glucose 91 mg/dL 02/13/2020 2:59 PM CDT [facility] Blood BLOOD SPECIMEN / Unknown Venipuncture / Unknown 02/13/2020 2:29 PM CDT 02/13/2020 2:42 PM CDT Narrative [facility] - 02/13/2020 2:59 PM CDT The following cutoff levels are recommended by [place] [employer]. A1c > 6.5% : considered as diabetes if two separate tests >6.5% or in an appropriate clinical setting. A1c 5.7% - 6.4% : considered as prediabetes (suggest increased risk for diabetes and cardiovascular disease) Control target level: Should be individualized. < 7 for general (non-) , < 8% less stringent goal, < 6.5 more stringent goal. Hemoglobin A1c measurements are used as an aid in the diagnosis of diabetic mellitus, as an aid to identify patients who may be at the risk for developing diabetic mellitus, and for the monitoring long-term blood glucose control in individuals with diabetes mellitus. This test should not replace glucose testing for patients with Type 1 diabetes, pediatric patients, or women. Falsely low HbA1c results may be observed in patients with clinical conditions that shorten erythrocyte life span or decrease mean erythrocyte age such as the presence of unstable hemoglobin variants, elevated hemoglobin F level or other causes of hemolytic anemia . HbA1c may not accurately reflect glycemic control when clinical conditions that affect erythrocyte survival are present. Severe Iron deficiency anemia may yield falsely high results. Hemoglobin A1c assay should not be used to diagnose or monitor diabetes in patients with malignancy, recent blood transfusion, chronic kidney or liver disease. This method may yield falsely low results when hemoglobin (HbF) exceeds 5% in the specimen. Stacey Avila MD LAB - CHEMISTRY EZE POPE Performing Organization Address [facility] Co de Phone Number [facility] [address] [place], [place] [phone] * (ABNORMAL) VITAMIN D 25-HYDROXY (02/13/2020 2:29 PM CDT) Vitamin D, 25 Hydroxy 24.2(L) 30 - 100 ng/mL 02/13/2020 3:24 PM CDT [facility] Blood BLOOD SPECIMEN / Unknown Venipuncture / Unknown 02/13/2020 2:29 PM CDT 02/13/2020 2:41 PM CDT Narrative [facility] - 02/13/2020 3:24 PM CDT Vitamin D Status: Deficiency <20 ng/mL Insufficiency 20-30 ng/mL Sufficiency 30-100 ng/mL Toxicity >100 ng/mL Stacey Avila MD LAB - CHEMISTRY EZE POPE Performing Organization Address City/[facility]/ZIP Co de Phone Number [facility] [address] [place] [phone] * VITAMIN B12 (02/13/2020 2:29 PM CDT) Vitamin B12 555 213 - 816 pg/mL 02/13/2020 3:54 PM CDT [facility] Blood BLOOD SPECIMEN / Unknown Venipuncture / Unknown 02/13/2020 2:29 PM CDT 02/13/2020 2:41 PM CDT Stacey Avila MD LAB - CHEMISTRY EZE POPE Performing Organization Address [facility] de Phone Number [facility] [address] [place] [address] * (ABNORMAL) IRON + TRANSFERRIN PANEL (02/13/2020 2:29 PM CDT) Pathologist [facility] Iron 46(L) 50 - 170 ug/dL 02/13/2020 3:07 PM CDT [facility] Transferrin 260 180 - 382 mg/dL 02/13/2020 3:07 PM CDT [facility] TIBC Calculated 325 240 - 450 ug/dL 02/13/2020 3:07 PM CDT [facility] Iron Saturation % 14(L) 20 - 50 % 02/13/2020 3:07 PM CDT [facility] Blood BLOOD SPECIMEN / Unknown Venipuncture / Unknown 02/13/2020 2:29 PM CDT 02/13/2020 2:41 PM CDT Stacey Avila MD LAB - CHEMISTRY EZE POPE Performing Organization Address [facility] de Phone Number [facility] [address] [place] [address] * FERRITIN (02/13/2020 2:29 PM CDT) [facility] Ferritin 20 5 - 204 ng/mL 02/13/2020 3:54 PM CDT [facility] Blood BLOOD SPECIMEN / Unknown Venipuncture / Unknown 02/13/2020 2:29 PM CDT 02/13/2020 2:41 PM CDT Stacey Avila MD LAB - CHEMISTRY EZE POPE Performing Organization Address [facility] Co de Phone Number [facility] [address] [place] [address] * GLUCOSE PROTEIN KETONE URINE - POINT OF CARE (02/13/2020 1:49 PM CDT) Only the most recent of2 resultswithin the time period is included. Pathologist [facility] Glucose UA neg Negative [facility] POCT TEST[facility] Protein UA neg Negative [facility] Ketone UA neg Negative [facility] QC Verified Yes Yes [facility] POC T TESTING Urine URINE / Unknown 02/13/2020 1 :49 PM CDT Aria Rodriguez MD LAB - POINT OF CARE ORDERABLES [facility] [address] [place] [address], [facility] [phone] * [place] LIVER ELASTOGRAPHY (01/09/2019 2:52 PM CDT) Narrative Eduar Menezes MD - 01/09/2019 2:52 PM CDT Eduar Menezes MD 01/09/2019 2:52 PM Diagnosis: Elevated Liver Enzymes RN verified patient not , no implanted devices and NPO for prior 3 hours. Vital signs taken, procedure explained and consent signed. Date of Exam: 01/09/2019 Liver Stiffness: (E, kPa) median: 7.2 IQR (interquartile range): 0.6 IQR/Median% (ideally < 30%): 8 CAP (controlled attenuation parameter): 397 Technical Difficulty: None Ordering Provider: Roque Vigil MD Fibroscan interpretation: I have personally reviewed the Fibroscan report and associated tracings. The calculated liver stiffness (E, kPa) indicates that: The probability of advanced liver fibrosis is: low to moderate. The loss of ultrasound signal, (controlled attenuation parameter, CAP [dB/m]), indicates that the probability of hepatic steatosis is: high. Eduar Menezes MD The following criteria are used to indicate the probability of advanced (stage 3-4) fibrosis: < 7.0 kPa: low 7.0-8.9 kPa: low to moderate 9.0-14.9 kPa: moderate 15-20 kPa: high > 20 kPa: very high Liver stiffness > 20 kPa is also associated with a high probability of complications of portal hypertension including varices and ascites. Liver stiffness > 50 kPa is associated with a high risk of variceal bleeding. Note: Liver stiffness is increased by factors other than fibrosis including passive congestion, infiltrative processes, active alcoholism, biliary obstruction and marked inflammation. The interpretation of the Fibroscan result provided above may not have taken such factors into account. Disease etiology also influences Fibroscan cutoff values for fibrosis stages and the following cutoffs have been proposed (Mary et al, Clin Gastro Hepatol 2015; 13:27-36): Cutoffs for Stage 3 and Stage 4 fibrosis respectively: Hepatitis B: >9 and >11.7 kPa Hepatitis C: >9.5 and >12.5 kPa HCV-HIV: >11 and >14 kPa Cholestatic liver diseases: >10 and >17.9 kPa NAFLD/LEWIS: >10 and >14 kPa CAP estimates of steatosis: normal <200 dB/m maybe present 200 to 250 dB/m moderate 250-300 dB/m substantial > 300 dB/m (Note that Fibroscan is not a quantitative measure of liver fat and the risk of NAFLD progression is unrelated to the degree of steatosis.) These criteria are estimates and may change as additional supporting data becomes available. [email or web address] Eduar Keane MD PROCEDURE/ MINOR SURGICAL ORDERABLES * T4 TOTAL (08/10/2016 1:54 PM NURSING HOME ASSISTANT ADMINISTRATOR) Pathologist [facility] T4 Total 7.1 4.5 - 12.0 mcg/dL [facility] Comment: Test Performed at: [employer] [facility] [place] [place] [address] KALI MORENO DO,MPH Blood BLOOD SPECIMEN / Unknown 08/10/2016 1:54 PM NURSING HOME ASSISTANT ADMINISTRATOR 08/10/2016 1:55 PM NURSING HOME ASSISTANT ADMINISTRATOR Jeff Begum MD LAB - CHEMISTRY EZE [facility] Organization Address City/State/[facility] Co de Phone Number [facility] [address] [place] [address] * (ABNORMAL) ANTI THYROID ANTIBODY PANEL (08/10/2016 1:53 PM NURSING HOME ASSISTANT ADMINISTRATOR) Pathologist [facility] Thyroglobulin Antibody >1000(H) < or = 1 IU/mL [facility] Comment: Test Performed at: [employer] [id number] [address] KALI MORENO DO,MPH Thyroid Peroxidase TPO Antibody >900(H) <9 IU/mL [facility] Blood BLOOD SPECIMEN / Unknown 08/10/2016 1:53 PM NURSING HOME ASSISTANT ADMINISTRATOR 08/10/2016 1:53 PM NURSING HOME ASSISTANT ADMINISTRATOR Jeff Begum MD LAB - CHEMISTRY EZE POPE [facility] Organization Address City/State/ZIP Co de Phone Number [facility] [address] [place] [address] Care Teams Interlocking Installer Relationship Specialty Start Date End Date Mila Curtis MD [address] [place] [address] PCP - General Family Medicine 02/28/15
--- OUTSIDE RECORDS SUMMARY | 2024-07-31 18:56 | XMS_ITS ---
Author Organization [facility] Address [address], [address] [address] Phone Care Team Providers Care Recovery Advocate Name Role Phone Mila Curtis MD Primary Care Provider + Brittany Tamayo APN, HEAT REGULATOR Unavailable Sofia Gonzalez Pinky PAC Unavailable [phone] Leslie Saenz MD Unavailable [facility] Status:Enrolled (Active) Start date:07/05/2024 Enrollment date:07/05/2024 Related social drivers of health:Intimate Partner Violence, Social Connections, Alcohol Use, Financial Resource Strain, Depression, Stress, Physical Activity, Food Insecurity, Transportation Needs, Housing Stability, Utilities Continued Care and Services Coordination
--- OUTSIDE RECORDS SUMMARY | 2024-07-31 18:56 | XMS_ITS | Referral Summary ---
Author Organization [facility] Address [address] [place] [address] Care Team Providers Care Handicapper [employer]ness [employer] Name Role Phone Mila Curtis MD Primary Care Provider + Encounters Date Type Department Care Team Description 06/14/2024 2:30 PM BASIN FINISH OPERATOR TIG WELDER Office Visit [facility] [address] [place] [address] [place] [phone] Terra Betancur MD Crohn's disease involving stomach (HCC) (Primary Dx) 05/18/2024 Orders Only [facility] [address] [place] [address] [place] [address] Dee Golden RN Crohn's disease involving stomach (HCC) (Primary Dx); Routine health maintenance; High risk medications (not anticoagulants) long-term use from Last 3 Months Allergies No known active allergies Medications levothyroxine (SYNTHROID) 100 mcg tablet 1 tablet (100 mcg total) ice cream van vendor before breakfast 2 Active multivitamin capsule Take [...] 1 tablet (150 mcg total) by mouth ice cream van vendor before breakfast Active ferrous gluconate 324 mg [...] Crohn's disease. Imaging: n/a. Family History: n/a. Social History Tobacco Use Types Packs/Day Years [...] on file Legal Sex Female 7:10 PM BASIN FINISH OPERATOR TIG WELDER Gender Identity Not on file Sexual Orientation Not on file Last Filed Vital Signs Vital Sign Reading Time Taken Comments Blood Pressure 110/72 06/14/2024 2:29 PM BASIN FINISH OPERATOR TIG WELDER Pulse 66 06/14/2024 2:29 PM BASIN FINISH OPERATOR TIG WELDER Temperature 36.8 C (98.3 F) 06/14/2024 2:29 PM BASIN FINISH OPERATOR TIG WELDER Respiratory Rate 16 04/13/2023 11:25 AM BASIN FINISH OPERATOR TIG WELDER Oxygen Saturation 97% 06/14/2024 2:29 PM BASIN FINISH OPERATOR TIG WELDER Inhaled Oxygen Concentration - - Weight 119.7 kg (264 lb) 06/14/2024 2:29 PM BASIN FINISH OPERATOR TIG WELDER Height 170.2 cm (5' 7 ) 06/14/2024 2:29 PM BASIN FINISH OPERATOR TIG WELDER Body Mass Index 41.35 06/14/2024 2:29 PM BASIN FINISH OPERATOR TIG WELDER Plan of Treatment Not on file Insurance [facility] Member Subscriber Plan / Payer (Ef fective 2020-Present) Name:Silvia Kern Relation to Subscriber:Self Name:Silvia Kern Payer ID:[id number] (NAIC) Type:MEDICAID RISK OTHER Address: [place] [id number] [facility] Advance Directives For more information, please contact: [phone] * Full Code (Latest Code Status on File) Date Activated Date Inactivated Comments 02/20/2022 9:32 AM 02/20/2022 4:23 PM Care Teams Handicapper Harness Racing Relationship Specialty Start Date End Date Mila Curtis MD [address] [address] PCP - General Family Medicine 10/21/21
--- OUTSIDE RECORDS SUMMARY | 2024-07-31 18:57 | XMS_ITS | Data Portability ---
Author Organization [facility], Main Office Address [address] [place] [address] Assessment No assessment recorded. Plan of Treatment Reminders Order Date Submit Date Provider Last Modified By Organization Details Last Modified Time Details Appointments None recorded. Lab lipid panel, serum 2023 [facility] (Lab), [address] [place], [address], 4 19:43:53 TSH, serum or plasma 2023 024 [facility] (Lab), [address] [place], [address], 4 19:43:53 glycohemogl obin, total, blood 2023 024 [facility] (Lab), [address] [place], [address], 4 19:43:53 CMP, serum or plasma 2023 024 [facility] (Lab), [address] [place], [address], 4 19:43:53 CBC w/ auto diff 2023 [facility] (Lab), [address] [place], [address], 4 19:43:53 Referral None recorded. Procedures None recorded. Surgeries None recorded. Imaging None recorded. Medication Orders cetirizine 10 mg tablet [address] [id number], [address] [place], [place], [id number], 4 14:37:35 benzonatate 200 mg capsule [address] [facility][id number], [address] [place], [place], [id number], 4 14:37:25 Zithromax Z-Aneudy 250 mg tablet [address] [facility]44285, [address] [place], [place], [id number], 4 14:37:19 Medrol (Aneudy) 4 mg tablets in a dose pack [address] [facility]52602, [address] [place] [address], [id number], 4 14:36:09 ibuprofen 800 mg tablet [address] [facility]96868, [address] [place], [place], [id number], 4 14:38:00 Patient TargetsNo targets recorded. Patient InstructionsNo instructions recorded. Reason for Referral None Reported. Results Created Date Observation Date Name Description Value Unit Range Abnormal Flag Note LastModifiedBy Organization Detail LastModifiedTime 01/19/20 24 01/19/2024 PPD (dolly fied prote in deriv ative ), skin test TB negati ve Not Available [facility] [address], [place], [address], 12/29/2023 11:16:00 04/30/20 21 04/30/2021 XR, chest , 2 view No observ ation record ed. [id number], [place], [address], 08/05/2022 16:41:21 05/24/20 21 05/24/2021 XR, knee No observ ation record ed. [id number], [place], [address], 08/05/2022 16:41:21 01/29/20 22 01/28/2022 imagi ng/di agnos tic resul t No observ ation record ed. [id number], [place], [address], 08/05/2022 16:41:21 03/01/20 23 03/01/2023 XR, chest No observ ation record ed. [email or web address] [facility] [address] [place], [address], 10/15/2023 10:04:54 Result Notes None recorded. Problems Name Problem SNOMED Code Status Onset Date Resolution Date Notes Provider Name and Address Organization Details Recorded Time Suprapubic pain 258679095 Active Not Available [facility] 3 16:40:28 Pain in throat 306427917 Active Not Available [facility] 3 16:40:29 Overweight 842497774 Active Not Available [facility] 3 16:40:29 Cutting self 167509456 Active Kimber Loo APRN [address], [place], [address] , [employer] [facility] 4 09:50:12 Chronic sore throat 575118605 Active Kimber Loo APRN [address], [place], [address] , [employer] [facility] [employer] [facility] 4 09:50:04 Crohn's disease 77713878 Active 2017 Kimber Loo APRN [address], [place], [address] , [employer] 4 09:50:07 Fever 036469764 Active Not Available [facility] 3 16:40:29 Pharyngiti s 584287235 Active 2018 Not Available [facility] 3 16:40:29 Hypothyroi dism 58316116 Active Kimber Loo APRN [address], [place], [address] , [employer] [facility] 4 09:50:16 Obesity 507640314 Active Kimber Loo APRN [address], [place], [address] , [employer] 4 09:50:26 Streptococ karime sore throat 56009580 Active Not Available [facility] 3 16:40:29 Anxiety 41113464 Active Kimber Loo APRN [address], [place], [address] , [employer] [facility] 4 09:50:02 Upper respirator y infection 90695019 Active Not Available [facility] 3 16:40:29 Hyperlipid emia 97896661 Active Kimber Loo APRN [address], [place], [address] , [employer] [facility] 4 09:50:10 Allergic rhinitis 08756146 Active Not Available [facility] 3 16:40:29 28116763 Completed 201907/05/2020 Not Available [facility] 3 16:40:29 Irregular periods 61808039 Active Kimber Loo APRN [address], [place], [address] , [employer] [facility] 4 09:50:20 Persistent cough 303494575 Active 2022 GAUTAM Weaver [address], [place], [address] , [employer] [facility] 3 08:08:44 Migraine 71168393 Active 2022 Kimber Loo APRN [address], [address] [address], [place], [address] , [facility] [employer] [facility] 4 09:50:18 Seasonal allergy 699836986 Active 2022 Kimber Loo APRN [address], Per [facility], [place], [address] , [facility] [employer] [facility] 4 09:50:32 Cough 27622382 Active Kimber Loo APRN [address], [place], [address] , [facility] [employer] [facility] 4 09:49:04 Problem Notes None recorded. Procedures Surgical History Date Name Laterality Status Provider Name and Address Organization Details Recorded Time tonsilectom y/adenoids completed Not Available [facility] 08/05/2022 16:39:27 Imaging Results Imaging Date Name Status LastModified by Organiz ation Details LastModified Time 04/30/2021 XR, chest, 2 view completed [id number] [place] [address], [address], 08/05/2022 16:41:21 05/24/2021 XR, knee completed [id number] [place] [address] [place] [address], [address], 08/05/2022 16:41:21 01/28/2022 imaging/brandon gnostic result completed [id number] [place] [address], [address], 08/05/2022 16:41:21 03/01/2023 XR, chest completed [address] [place], [address], 10/15/2023 10:04:54 Procedure Notes None recorded. Medical Equipment None Reported. Allergies Allergen ID Allergen Name Allergen Category Reaction Reaction Severity Criticality Documentation Date Start Date Code Code System Note Provider Name and Address Organization Details Recorded Time 55145 No known allergy (situatio n) Not available Not available Not available Not available 02/15/2024 20343 6003 SNOMED Kimber Loo, CHAIN HOOKER [address] [facility], [facility] [address], [place], [address], [facility] [employer] 4 09:49:12 No known drug allergies Medications Name Sig Start Date Stop Date Status Note LastModified by Organization Details LastModified Time amoxicilli n 500 mg capsule TAKE 1 CAPSULE BY MOUTH EVERY 12 HOURS FOR 10 DAYS 12/16 completed Not Available Not Available Not Available levothyrox ine 175 mcg tablet TAKE 1 TABLET BY MOUTH EVERY DAY WITH 100MCG TABLET 12/16 completed Not Available Not Available Not Available clindamyci n HCl 300 mg capsule TAKE 1 CAPSULE BY MOUTH EVERY 6 HOURS FOR 7 DAYS 12/16 completed Not Available Not Available Not Available triamcinol one acetonide 0.5 % topical cream APPLY TOPICALL Y TO THE AFFECTED AREA TWICE DAILY 12/12 completed Not Available Not Available Not Available cetirizine 10 mg tablet TAKE ONE TABLET BY MOUTH EVERY DAY. 12/16 completed Not Available Not Available Not Available azithromyc in 250 mg tablet TAKE 2 TABLETS (500 MG) BY ORAL ROUTE ONCE DAILY FOR 1 DAY THEN 1 TABLET (250 MG) BY ORAL ROUTE ONCE DAILY FOR 4 DAYS 12/16 completed Not Available Not Available Not Available ibuprofen 800 mg tablet TAKE 1 TABLET BY MOUTH THREE TIMES DAILY NEEDED 12/16 completed Not Available Not Available Not Available Lidocaine Viscous 2 % mucosal solution GARGLE AND SPIT 15 ML PO Q 3 H PRF THROAT PAIN active Not Available Not Available No t Available benzonatat e 200 mg capsule TAKE 1 CAPSULE BY MOUTH THREE TIMES DAILY FOR 7 DAYS NEEDED 12/16 completed Not Available Not Available Not Available acetaminop hen 120 mg-codeine 12 mg/5 mL oral solution TK 1 TO 2 DELMY PO Q 4 TO 6 H PRN 08/26 completed Not Available Not Available Not Available ampicillin 500 mg capsule TK 1 C PO BID FOR 7 DAYS active Not Available Not Available No t Available citalopram 10 mg tablet TK 1 T PO QD active Not Available Not Available No t Available sumatripta n 100 mg tablet 1 po x 1 active Not Available Not Available Not Available hydrocodon e 5 mg-acetami nophen 325 mg tablet TAKE 1 TO 2 TABLETS BY MOUTH EVERY 4 HOURS NEEDED FOR PAIN 12/12 completed Not Available Not Available Not Available tretinoin 0.025 % topical cream ABDOULAYE AA QD active Not Available Not Available No t Available ondansetro n HCl 8 mg tablet Take 1 tablet every 8 hours by oral route as needed. active Not Available Not Available No t Available meloxicam 15 mg tablet TK 1 T PO QD PRN active Not Available Not Available No t Available metronidaz ole 0.75 % (37.5 mg/5 gram) vaginal gel INSERT 1 APPLICAT ORFUL VAGINALL Y EVERY DAY FOR 5 DAYS 12/16 completed Not Available Not Available Not Available ondansetro n HCl 4 mg tablet Take 1 tablet every 6-8 hours by oral route as needed for 5 days. active Not Available Not Available No t Available prednisone 20 mg tablet TAKE 1 TABLET BY MOUTH EVERY DAY FOR 5 DAYS 12/16 completed Not Available Not Available Not Available Tubersol 5 tub. unit/0.1 mL intraderma l injection solution Inject 0.1 mL by intrader mal route. 2023 active Not Available Not Available Not Avai lable penicillin V potassium 500 mg tablet TAKE 1 TABLET BY MOUTH EVERY 12 HOURS FOR 10 DAYS 12/16 completed Not Available Not Available Not Available azathiopri ne 50 mg tablet TAKE 4 TABLETS BY MOUTH DAILY 12/16 completed Not Available Not Available Not Available ciprofloxa rashmi 500 mg tablet TAKE 1 TABLET BY MOUTH EVERY 12 HOURS UNTIL ALL TAKEN 12/16 completed Not Available Not Available Not Available Tamiflu 75 mg capsule TK 1 C PO BID FOR 5 DAYS active Not Available Not Available No t Available sulfametho xazole 800 mg-trimeth oprim 160 mg tablet G SILVIA 1 T BID 12/03 completed Not Available Not Available Not Available omeprazole 40 mg capsule,de layed release TAKE 1 CAPSULE BY MOUTH DAILY 12/12 completed Not Available Not Available Not Available aspirin 81 mg tablet,del ayed release TK 2 TS PO QD active Not Available Not Available No t Available acetaminop hen 500 mg tablet TAKE 1 TABLET BY MOUTH EVERY 8 HOURS 12/16 completed Not Available Not Available Not Available triamcinol one acetonide 0.1 % topical cream ABDOULAYE AA BID EXCEPT ON THE FACE 12/16 completed Not Available Not Available Not Available amoxicilli n 500 mg tablet TAKE 1 TABLET BY MOUTH EVERY 8 HOURS THREE TIMES DAILY 12/16 completed Not Available Not Available Not Available levothyrox ine 75 mcg tablet TK 1 T PO QD WITH 200MCG DOSAGE 12/03 completed Not Available Not Available Not Available levothyrox ine 100 mcg tablet TAKE 1 TABLET BY MOUTH DAILY WITH A 150MCG TABLET. active Not Available Not Available No t Available amoxicilli n 875 mg tablet Take 1 tablet every 12 hours by oral route for 10 days. active Not Available Not Available No t Available citalopram 20 mg tablet TK 1 T PO QD IN THE MORNING active Not Available Not Available No t Available famotidine 20 mg tablet TK 1 T PO BID active Not Available Not Available No t Available trazodone 100 mg tablet TK 1 T PO QHS 06/30 completed makes pt too drowsy Not Available Not Available Not Available dicyclomin e 20 mg tablet Take 1 tablet 4 times a day by oral route as needed. active Not Available Not Available No t Available amoxicilli n 250 mg/5 mL oral suspension TK 10ML PO TID TAT 08/26 completed Not Available Not Available Not Available benzonatat e 100 mg capsule TAKE 1 CAPSULE BY MOUTH EVERY 8 HOURS NEEDED 12/16 completed Not Available Not Available Not Available cephalexin 500 mg capsule active Not Available Not Available Not Available ferrous sulfate 325 mg (65 mg iron) tablet TK 1 T PO BID 12/05 completed Not Available Not Available Not Available levothyrox ine 125 mcg tablet active Not Available Not Available N ot Available prednisone 50 mg tablet 05/04 completed Not Available Not Available Not Available lidocaine 5 % topical patch 12/16 completed Not Available Not Available Not Available promethazi ne 25 mg tablet TAKE 1 TABLET BY MOUTH EVERY 6 HOURS NEEDED FOR NAUSEA OR VOMITING 12/16 completed Not Available Not Available Not Available levothyrox ine 150 mcg tablet TAKE 1 TABLET BY MOUTH DAILY WITH A 100MCG TABLET. active Not Available Not Available No t Available mercaptopu rine 50 mg tablet 12/16 completed Not Available Not Available Not Available hydrocorti sone 2.5 % topical cream active Not Available Not Available Not Available levothyrox ine 200 mcg tablet TAKE 1 TABLET BY MOUTH DAILY 12/16 completed Not Available Not Available Not Available ergocalcif berlin (vitamin D2) 1,250 mcg (50,000 unit) capsule TAKE 1 CAPSULE BY MOUTH EVERY WEEK 12/16 completed Not Available Not Available Not Available polyethyle ne glycol 3350 17 gram/dose oral powder MIX 17GRAMS AND TAKE BY MOUTH TWICE DAILY 12/12 completed Not Available Not Available Not Available methylpred nisolone 4 mg tablets in a dose pack FOLLOW PACKAGE DIRECTIO NS 12/16 completed Not Available Not Available Not Available ondansetro n 4 mg disintegra ting tablet DIS ONE T PO Q 8 H PRF NAUSEA 12/03 completed Not Available Not Available Not Available fluticason e propionate 50 mcg/actuat ion nasal spray,susp ension Crosby 2 sprays every day by intranas al route at bedtime. active Not Available Not Available No t Available dicyclomin e 10 mg capsule Take 1 capsule twice a day by oral route as needed. active Not Available Not Available No t Available levothyrox ine 112 mcg tablet TAKE 1 TABLET BY MOUTH DAILY WITH 150MCG DOSE 12/16 completed Not Available Not Available Not Available amoxicilli n 875 mg-potassi um clavulanat e 125 mg tablet TK 1 T PO BID FOR 10 DAYS 01/14 completed Not Available Not Available Not Available oxycodone 5 mg tablet TAKE 1 TABLET BY MOUTH EVERY 4 HOURS NEEDED 12/16 completed Not Available Not Available Not Available Poly-Iron 150 mg iron capsule TAKE 1 CAPSULE BY MOUTH EVERY DAY active Not Available Not Available No t Available escitalopr am 10 mg tablet Take 1 tablet by oral route for 30 days. active Not Available Not Available No t Available Mononessa (28) 0.25 mg-35 mcg tablet TK 1 T PO QAM 11/06 completed Not Available Not Available Not Available nitrofuran toin monohydrat e/macrocry stals 100 mg capsule 11/06 completed Not Available Not Available Not Available levothyrox ine 200 mcg daily 01/21 completed Not Available Not Available Not Available Prilosec 05/04 completed 75 mg 1 x day Not Available Not Available Not Available ferrous gluconate 324 mg (38 mg iron) tablet TAKE 1 TABLET BY MOUTH EVERY DAY active Not Available Not Available No t Available Sudogest 12-hour 120 mg tablet,ext ended release TAKE 1 TABLET BY MOUTH EVERY 12 HOURS NEEDED FOR NASAL CONGESTI ON 12/16 completed Not Available Not Available Not Available Cimzia 400 mg/2 mL (200 mg/mL x 2) subcutaneo us syringe kit active Not Available Not Available Not Available levothyrox ine 88 mcg capsule medicati on:levot hyroxine 88 mcg capsule dose:0.0 route:P O freque ncy: active Not Available Not Available No t Available Dexilant 60 mg capsule, delayed release 1 po qday 09/08 completed Not Available Not Available Not Available butalbital -acetamino phen-caffe ine 50 mg-300 mg-40 mg capsule TAKE 1 CAPSULE BY MOUTH EVERY 8 HOURS NEEDED FOR PAIN 12/16 completed Not Available Not Available Not Available Humira(CF) Pen 40 mg/0.4 mL subcutaneo us kit inject q 2 weeks 12/16 completed Not Available Not Available Not Available Vitals Date Recorded Body weight Body temperature Heart rate Oxygen saturation Oxygen saturation in Arterial blood by Pulse oximetry Systolic blood pressure Diastolic blood pressure Provider Name and Address Organization Details Last Updated DateTime 3 539132. 42 g 98.3 [degF] 75 /min 99 % 99 % 128 mm[Hg] 78 mm[Hg] Joann Lund LPN [employer] 3 08:06:25 Date Recorded Body weight Body mass index (BMI) Body height Body temperature Heart rate Oxygen saturation Oxygen saturation in Arterial blood by Pulse oximetry Systolic blood pressure Diastolic blood pressure Provider Name and Address Organization Details Last Updated DateTime 4 347247. 16 g 41.5 kg/m2 170.82 cm 98.6 [degF] 86 /min 98 % 98 % 102 mm[Hg] 64 mm[Hg] Ayleen Crocekr RN [employer] 4 14:40:24 Social History Question Answer Notes LastModified by Organizat ion Details LastModified Time Tobacco Smoking Status Never Smoker Not Available [employer] 08/05/2022 16:39:24 What Is Your Level Of Alcohol Consumption? None [id number] Information not available 08/05/2022 What Is Your Level Of Caffeine Consumption? Occasional [id number] Information not available 08/05/2022 How Much Tobacco Do You Chew? None [id number] Information not available 08/05/2022 What Type Of Diet Are You Following? REGULAR [id number] Information not available 08/05/2022 Which Illicit Or Recreational Drugs Have You Used? No [id number] Information not available 08/05/2022 Do You Or Have You Ever Used E-cigarettes Or Vape? 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 12/12/2020 [id number] Information not available 08/05/2022 Do You Or Have You Ever Used Smokeless Tobacco? Never Used Smokeless Tobacco [id number] Information not available 08/05/2022 Sex: Unknown Functional Status Question Answer Note LastModified by Organizat ion Details LastModified Time What is your exercise level? Occasional [id number] Information not available 08/05/2022 Mental Status None recorded. Family History Relationship Description Onset Age of this Age Resolved Age Notes LastModified by Organization Details LastModified Time Maternal Grandmother Hypertensive disorder [id number] Not available 08/05/2022 16:39:28 Maternal Grandmother Diabetes mellitus [id number] Not available 08/05/2022 16:39:28 Maternal Grandfather Diabetes mellitus [id number] Not available 08/05/2022 16:39:28 Medical History Condition Response BLINDNESS N RHEUMATIC FEVER N KIDNEY STONES N BLADDER PROBLEMS N MRSA N OTHER # 1 N POLIO N LUNG DISEASE/DISORDER N RADIATION / CHEMOTHERAPY N COPD N Other # 2 N BLOOD DISEASES N SURGERY N EAR OR HEARING PROBLEMS N MUMPS N BOWEL PROBLEMS N FEMALE PROBLEMS / INFECTIONS N DEPRESSION (INCLUDING POST ) N STROKE/TIA N THYROID DISEASE N ULCERS N BENIGN PROSTATIC HYPERPLASIA N MEASLES N CERVICALGIA N TB SKIN TEST N MYOCARDIAL INFARCTION N PARAPELGIA N OBESITY N GERD/NAUSEA N ANEURYSM N URINARY/BLADDER/KIDNEY PROBLEMS N CORONARY ARTERY DISEASE (CAD) N MENIERE'S DISEASE N ADDICTION CONCERNS N ENDOMETRIOSIS N USE OF BLOOD THINNERS N SKIN PROBLEMS N EMPHYSEMA N GASTROINTESTINAL DISORDER N MUSCLE,JOINT OR BONE PROBLEMS N GASTROINTESTINAL BLEEDING N BLOOD CLOTS N ASTHMA N CATARACTS N ERECTILE DYSFUNCTION N GI PROBLEMS N CHF N Low Testosterone N NEUROPATHY N INFERTILITY N AIDS/HIV N FRACTURES N CHEMOTHERAPY / RADIATION N VISION/EYE PROBLEMS N LIVER DISEASE N MALE HYPOGONADISM N HYPERTENSION N TOURETTE'S N ANXIETY DISORDER N BLOOD TRANSFUSION N ANEMIA/BLOOD DISORDER N CHRONIC EAR INFECTIONS N BRONCHITIS N TUBERCULOSIS N GLAUCOMA N FOOT PROBLEM N DIVERTICULITIS N CHICKENPOX N SLEEP APNEA N ALLERGIES/HAYFEVER N INFECTIOUS DISEASE N HEART ARRHYTHMIA N PROSTATE N INSOMNIA N HIGH CHOLESTEROL / HYPERLIPIDEMIA N HYPERTHYROIDISM N EYE PROBLEMS N EATING DISORDER N EDEMA N CHRONIC PAIN SYNDROME N CAROTID BLOCKAGE N CONSTIPATION N BACK / NECK PROBLEMS N HAVE YOU BEEN HOSPITALIZED OR SEEN IN [facility] IN THE PAST YEAR ? N ATHEROSCLEROSIS N BREAST PROBLEMS N DIALYSIS N ECZEMA N FIBROMYALGIA N OSTEOPOROSIS N ARTHRITIS N NO SIGNIFICANT PAST MEDICAL HISTORY N APPENDICITIS N DIABETES, TYPE N BAD TEETH N HEARTBURN / REFLUX N ADD/ADHD N AUTISM SPECTRUM DISORDER (ASD) N HEPATITIS / LIVER DISEASE N PULMONARY DISEASE N GOUT N SLEEP DISORDER N ALZHEIMER'S DISEASE N PAIN N HERPES N DEMENTIA N HEADACHES/MIGRAINES N SEIZURES/EPILEPSY N VASCULAR DISEASE N PACEMAKER N DIZZINESS N HEART DISEASE/HEART PROBLEMS N KIDNEY DISEASE N DEVELOPMENTAL OR BEHAVIORAL DISORDERS N MULTIPLE SCLEROSIS N SCARLET FEVER N MENTAL DISORDER/ILLNESS N CARDIAC ARRHYTHMIA N CANCER: SPECIFY N PNEUMONIA N ATRIAL FIBRILLATION N Gall Stones N PULMONARY EMBOLISM N AUTOIMMUNE DISEASE N Gynecological HistoryNo gynecological history recorded. Obstetrics History GPAL:G 0 P 0 0 0 0 Immunizations Vaccine Type Date Status Note Provider Nam e and Address Organization Details Recorded Time Hib, unspecified formulation 3 completed Kimber Loo APRN [address] [facility], [address] [address], [place], [address], [employer] 02/15/2024 09:49:25 Hib, unspecified formulation 1 fely Loo APRN [address] [facility], [facility] [address], [place], [address], [employer] 02/15/2024 09:49:25 Hib-Hep B 2 fely Loo APRN [address], [facility] [address], [place], [address], [employer] 02/15/2024 09:49:25 Hib-Hep B 1 completed Kimber Loo APRN [address], [place], [address], [facility] 02/15/2024 09:49:25 meningococcal B, OMV 8 completed Kimber Loo APRN [address], [place], [address], [facility] 02/15/2024 09:49:25 HPV9 8 completed Kimber Loo APRN [address], [place], [address], [facility] 02/15/2024 09:49:25 IPV 3 completed Kimber Loo APRN [address], [place], [address], [facility] 02/15/2024 09:49:25 IPV 1 completed Kimber Loo APRN [address], [place], [address], [facility] 02/15/2024 09:49:25 IPV 1 completed Kimber Loo APRN [address], [place], [address], [facility] 02/15/2024 09:49:25 MMR 2 completed Kimber Loo APRN [address], [place], [address], [facility] 02/15/2024 09:49:25 MMR 5 completed Kimber Loo APRN [address], [place], [address], [facility] 02/15/2024 09:49:25 MMR 8 completed Kmiber Loo APRN [address], [place], [address], [facility] 02/15/2024 09:49:25 Tdap 1 completed Kimber Loo APRN [address], [place], [address], [facility] 02/15/2024 09:49:25 Tdap 2 completed Kimber Loo APRN [address], [place], [address], [facility] [employer] [facility] 02/15/2024 09:49:25 varicella 4 completed Kimber Loo APRN [address], [place], [address], [facility] [employer] [facility] [employer] [facility] 02/15/2024 09:49:25 varicella 0 completed [address], [place], [address], [facility] [employer] [facility] [employer] [facility] 02/15/2024 09:49:25 DTP [address], [place], [address], [employer] [facility] [employer] [facility] 02/15/2024 09:49:25 polio, unspecified formulation 5 completed [address], [place], [address], [facility] [employer] [facility] [employer] [facility] 02/15/2024 09:49:25 influenza, split (incl. purified surface antigen) [address], [place], [address], [facility] [employer] [facility] 02/15/2024 09:49:25 influenza, split (incl. purified surface antigen) 0 completed [address], [place], [address], [facility] [employer] [facility] [employer] [facility] 02/15/2024 09:49:25 Hep B, adolescent or pediatric [address], [place], [address], [facility] 02/15/2024 09:49:25 Hep A, ped/adol, 2 dose 2 completed Kimber Loo APRN [address], [place], [address], [facility] 02/15/2024 09:49:25 Meningococcal MCV4O 8 completed Kimber Loo APRN [address], [place], [address], [facility] 02/15/2024 09:49:25 DTaP 2 completed Kimber Loo APRN [address], [place], [address], [facility] 02/15/2024 09:49:25 DTaP 1 completed Kimber Loo APRN [address], [place], [address], [facility] 02/15/2024 09:49:25 DTaP 1 completed Kimber Loo APRN [address], [place], [address], [facility] 02/15/2024 09:49:25 DTaP, unspecified formulation 5 completed Kimber Loo APRN [address], [place], [address], [facility] 02/15/2024 09:49:25 Hep A, unspecified formulation 1 completed Kimber Loo APRN [address], [place], [address], [facility] 02/15/2024 09:49:25 Tdap 4 completed Randy Tee RN null, [facility] 01/19/2024 10:22:26 Tdap 0 completed Not Available [facility] 03/03/2023 05:56:12 meningococcal MCV4P 4 completed Not Available [facility] 03/03/2023 05:56:12 Influenza, split virus, quadrivalent, PF 0 completed Not Available [facility] 03/03/2023 05:56:12 Past Encounters Encounter ID Performer Location Encounter Start Date Encounter Closed Date Diagnosis/Indication Diagnosis SNOMED-CT Code Diagnosis ICD10 Code Diagnosis Note [id number] [address] [place] [address] 12/12/2020 00:00:00 12/12/2020 09:15:[id number] [place] [address] 12/18/2020 00:00:00 12/18/2020 18:33:27 [id number] GAUTAM Weaver [address] [place] [address] 03/19/2023 07:57:32 03/19/2023 08:19:49 Persistent cough 378067872 R05.3 this has been an issue for 4 weeks, was accompanie d by diarrhea for 2-3 days(resol bhavesh)produc tive with bright green mucusCough now causing migrainesW ent to ER a couple weeks ago-given meds for migraine but not for cough (med ineffectiv e)takes ibuprofen and tylenol, vicks rub, nasal spray, dayquil and nyquil had limited effectWill give benzonatat e, zpak and medrol dose aneudy Migraine 75811466 G43.90 9 r/t coughingWi ll trial ibuprofen Seasonal allergy 2113661 04 J30.2 currently untreatedW ill trial cetirizine [id number] GAUTAM Weaver [address] [place] [address] 12/17/2023 14:29:55 12/20/2023 10:18:10 Adult health examination [id number] Z00.00 Encouraged fresh fruits and veggies-me d intake bothIncrea se daily water intake-5-6 bottles/da yEncourage 30 mins of daily exercise-d oes not exerciseWe ll woman exams-up to date with papLDCT-cu rrently vapes Diabetes m ellitus screening 433361658 Z13.1 Thyroid di sorder screening 703905061 Z13.29 Hyperlipid emia screening 791147224 Z13.220 Anemia screening 6201238 07 Z13.0 [id number] [facility] [address] [place] [address] 01/17/2024 10:35:34 01/17/2024 11:21:49 [id number] GAUTAM Carrera [facility] [address] [place] [address] 01/19/2024 10:07:03 01/19/2024 10:33:07 Health Concerns Section Related Observation LastModified by Organization Detai ls LastModified Time None Recorded Concern Status LastModified by Organization Details LastModified Time None Recorded Advance Directives Directive None Recorded Payers Encounter Date Sequence Insurance Name Policy Number Policy Shelton Covered Member ID Shelton Member ID Guarantor Name 03/19/2023 1 [facility] (MEDICAID HMO) [id number] 0003 [facility] [id number] Liya Moody 12/17/2023 1 [facility] (MEDICAID HMO) [id number] 0003 [facility] [id number] [place] Moody 01/17/2024 1 [facility] (MEDICAID HMO) [id number] 0003 [facility] [id number] Bristol Moody 01/19/2024 1 [facility] (MEDICAID HMO) [id number] 0003 [facility] [id number] Liya Moody Notes Date Note Type Note Provider Name and Address Organization Details Recorded Time 03/19/2023 text/html Pt is here for c/o cough and migraine GAUTAM Weaver [address] [facility] [address], [place], [address], [place] [facility] 03/19/2023 08:26:02 12/17/2023 text/html pt is here for annual physical ENOCH Weaver-C [address] [facility], [facility] [address], [place], [address], [place] [facility] 12/17/2023 14:54:11 OBGyn Episode No OBEpisode recorded.
--- OUTSIDE RECORDS SUMMARY | 2024-07-31 18:57 | XMS_ITS | Data Portability ---
Author Organization [facility] [place] Address [address] [place] [address] [place] [address] Assessment Encounter Date Assessment Date Assessment LastModified by Organization Details LastModified Time 04/20/2024 04/20/2024 Patient is here for her first Depo. injection. Patient signed consent and did a UPT. Patient was informed of next window, July 06 through July 20. Not available 04/20/2024 11:37:58 Plan of Treatment Reminders Order Date Submit Date Provider Last Modified By Organization Details Last Modified Time Details Appointments None recorded. Lab test, urine 2023 024 [email or web address] [place], [address], [place], [address], 11:38:13 Referral None recorded. Procedures None recorded. Surgeries None recorded. Imaging US, transvagina l 2023 024 [email or web address] [place], [address], [place], [address], 4 14:15:03 Medication Orders Depo-Lighting Director a 150 mg/mL intramuscul ar syringe 2024 025 [email or web address] 1 Not available 5 18:39:19 Depo-Lighting Director a 150 mg/mL intramuscul ar syringe 2023 024 [email or web address] Not available 11:39:19 Patient TargetsNo targets recorded. Patient InstructionsNo instructions recorded. Reason for Referral None Reported. Results Created Date Observation Date Name Description Value Unit Range Abnormal Flag Note LastModifiedBy Organization Detail LastModifiedTime 04/20/20 24 04/20/2024 pregn kristina test, urine HCG negati ve Not Available [place] [address], [place], [address], 04/20/2024 11:38:04 06/02/20 24 06/02/2024 US, trans vagin al No observ [facility]ion [facility] [address], [place], [address], 06/02/2024 17:24:22 06/02/20 24 06/02/2024 US, trans vagin al No observ ation record ed. [email or web address] [address], [place], [address], 06/04/2024 14:57:08 Result Notes None recorded. Problems Name Problem SNOMED Code Status Onset Date Resolution Date Notes Provider Name and Address Organization Details Recorded Time Pregnanc y 76298722 Completed 201908/30/2020 Tong leon [facility] 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 Dany leon [facility] 1 10:57:06 Crohn's disease 09966840 Completed Humira - seeing MFM [place] leon [facility] 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 1 10:57:06 Marginal insertio n of umbilica l cord 72469941 Completed [place] Pinachris ehl null, [facility] 1 10:57:06 Placenta circumva llata 5107001 Completed Palmaeli Pinachris ehl null, [facility] 1 10:57:06 Obesity 561090718 Completed antenata l testing at 32 wks [place] Ramos ehl null, [facility] 1 10:57:06 Hypothyr oidism 47437543 Active follows with endocrin e, levothyr oxine 250mcg Shalini Fragoso null, [facility] 4 15:50:53 Past pregnanc y history of section 587049933 Active FTP, desires tolac Shalini Fragoso null, [facility] 4 15:50:53 Salpingo -oophore ctomy Active h/o LSO for large ovarian cyst Shalini Fragoso null, [facility] 4 15:50:53 Hypothyr oidism 43096340 Completed follows with endocrin e, levothyr oxine 250mcg Shalini Fragoso null, [facility] 4 15:50:53 Past pregnanc y history of section 944390564 Completed FTP, desires tolac Shalini Fragoso null, [facility] 4 15:50:53 Salpingo -oophore ctomy Completed h/o LSO for large ovarian cyst Shalini Fragoso null, [facility] 4 15:50:53 Pregnanc y 87107987 Completed 202303/10/2024 Tong Villatoro null, [facility] 4 11:29:39 Crohn's disease 02510992 Completed on cimzia Shalini Fragoso null, [facility] 4 15:50:53 Crohn's disease 90530061 Active on laura leon, [facility] 15:50:53 Problem Notes None recorded. Procedures Surgical History Date Name Laterality Status Provider Name and Address Organization Details Recorded Time 01/29/20 23 IUD Removal completed Brittany Tamayo [facility] [address], [place], [address], [facility] 01/28/2023 11:51:54 01/29/20 23 IUD Removal completed Brittany Tamayo [facility] [address], [place], [address], [facility] 02/03/2023 11:59:23 01/13/20 23 IUD Removal completed Brittany Tamayo [facility] [address], [place], [address], [facility] 01/12/2023 18:32:02 08/12/19 23 IUD Insertion completed Brittany Tamayo [facility] [address], [place], [address], [facility] 08/11/2022 15:39:10 07/13/19 23 Date of Last Pap Smear completed Barbra Gee [facility] 01/12/2023 18:01:46 06/13/19 23 Control Implant Removal completed Rod Larson MD [address], [place], [address], [facility] 06/13/2022 13:08:01 04/07/20 22 Colonoscopy [facility] 07/11/2022 11:08:18 04/07/20 22 endoscopy completed [facility]oon[facility] 07/11/2022 11:08:30 09/10/19 21 Control Implant Insertion completed Rod Larson MD [address], [place], [address], [facility] 09/09/2020 12:13:55 06/07/19 16 Remove tonsils and adenoids completed Ronel Henderson [facility] 01/22/2020 11:55:27 Ovarian Cystectomy completed Poonam Lopez [facility] 07/11/2022 11:02:57 section completed DONELL BARKSDALE MD [address], [place], [address], [facility] 08/27/2023 12:33:09 section completed Jeny Mera [facility] 03/15/2024 11:48:15 Imaging Results Imaging Date Name Status LastModified by Organization Details LastModified Time 06/02/2024 US, transvaginal completed guerita ponce [address], [place], [address], 06/02/2024 17:24:22 06/02/2024 US, transvaginal completed [email or web address] [address], [place], [address], 06/04/2024 14:57:08 Procedure Notes None recorded. Medical Equipment None Reported. Allergies No known drug allergies Medications Name Sig Start Date Stop Date Status Note LastModified by Organization Details LastModified Time amoxicillin 500 mg capsule TAKE 1 CAPSULE BY MOUTH EVERY 12 HOURS FOR 10 DAYS 10/16 completed Not Available Not Available Not Available Mirena 21 mcg/24 hr (up to 8 years) 52 mg intrauterin e device Take 1 device by intrauter ine route. 07/14 completed Not Available Not Available Not Available levothyroxi ne 175 mcg tablet TAKE 1 TABLET BY MOUTH EVERY DAY WITH 100MCG TABLET 08/26 completed Not Available Not Available Not Available clindamycin HCl 300 mg capsule TAKE 1 CAPSULE BY MOUTH EVERY 6 HOURS FOR 7 DAYS 08/26 completed Not Available Not Available Not Available triamcinolo ne acetonide 0.5 % topical cream APPLY TOPICALLY TO THE AFFECTED AREA TWICE DAILY 09/03 completed Not Available Not Available Not Available cetirizine 10 mg tablet TAKE ONE TABLET BY MOUTH EVERY DAY. 07/14 completed Not Available Not Available Not Available azithromyci n 250 mg tablet TK 2 TS PO ON DAY 1, THEN TK 1 T PO D FOR 4 DAYS 07/14 completed Not Available Not Available Not Available ibuprofen 800 mg tablet TAKE 1 TABLET BY MOUTH EVERY 12 HOURS FOR 10 DAYS 07/14 completed Not Available Not Available Not Available benzonatate 200 mg capsule TAKE 1 CAPSULE BY MOUTH THREE TIMES DAILY FOR 7 DAYS NEEDED 07/14 completed Not Available Not Available Not Available ampicillin 500 mg capsule Take 1 capsule twice a day by oral route for 7 days. 04/22 completed Not Available Not Available Not Available hydrocodone 5 mg-acetamin ophen 325 mg tablet TAKE 1 TABLET BY MOUTH EVERY 3 HOURS NEEDED FOR BREAKTHRO UGH PAIN RATED 4-6 05/26 completed Not Available Not Available Not Available metronidazo le 0.75 % (37.5 mg/5 gram) vaginal gel INSERT 1 APPLICATO RFUL VAGINALLY EVERY DAY FOR 5 DAYS 10/16 completed Not Available Not Available Not Available ondansetron HCl 4 mg tablet 06/13 completed Not Available Not Available Not Available prednisone 20 mg tablet TAKE 1 TABLET BY MOUTH EVERY DAY FOR 5 DAYS 07/14 completed Not Available Not Available Not Available penicillin V potassium 500 mg tablet TAKE 1 TABLET BY MOUTH EVERY 12 HOURS FOR 10 DAYS 01/12 completed Not Available Not Available Not Available azathioprin e 50 mg tablet TAKE 4 TABLETS BY MOUTH DAILY 08/26 completed Not Available Not Available Not Available ciprofloxac in 500 mg tablet Take 1 tablet every 12 hours by oral route. 10/16 completed Not Available Not Available Not Available sulfamethox azole 800 mg-trimetho prim 160 mg tablet 03/22 completed Not Available Not Available Not Available omeprazole 40 mg capsule,del ayed release TAKE 1 CAPSULE BY MOUTH DAILY 06/13 completed Not Available Not Available Not Available aspirin 81 mg tablet,bonita yed release TK 2 TS PO QD 09/03 completed Not Available Not Available Not Available tramadol 50 mg tablet 06/13 completed Not Available Not Available Not Available acetaminoph en 500 mg tablet TAKE 1 TABLET BY MOUTH EVERY 8 HOURS 07/14 completed Not Available Not Available Not Available triamcinolo ne acetonide 0.1 % topical cream 05/23 completed Not Available Not Available Not Available amoxicillin 500 mg tablet TAKE 1 TABLET BY MOUTH EVERY 8 HOURS THREE TIMES DAILY 07/14 completed Not Available Not Available Not Available levothyroxi ne 100 mcg tablet TAKE 1 TABLET BY MOUTH DAILY WITH A 150MCG TABLET. active Not Available Not Available No t Available famotidine 20 mg tablet 05/23 completed Not Available Not Available Not Available benzonatate 100 mg capsule TAKE 1 CAPSULE BY MOUTH EVERY 8 HOURS NEEDED 07/14 completed Not Available Not Available Not Available cephalexin 500 mg capsule Take 1 capsule twice a day by oral route for 5 days. 03/22 completed Not Available Not Available Not Available oseltamivir 75 mg capsule active Not Available Not Available Not Available levothyroxi ne 125 mcg tablet TAKE 1 TABLET BY MOUTH ONCE DAILY WITH 150 MCG TABLET 05/26 completed Not Available Not Available Not Available lidocaine 5 % topical patch 09/26 completed Not Available Not Available Not Available promethazin e 25 mg tablet TAKE 1 TABLET BY MOUTH EVERY 6 HOURS NEEDED FOR NAUSEA OR VOMITING 01/12 completed Not Available Not Available Not Available levothyroxi ne 150 mcg tablet TAKE 1 TABLET BY MOUTH ONCE DAILY WITH 100MCG TABLET. active Not Available Not Available No t Available mercaptopur ine 50 mg tablet 08/26 completed Not Available Not Available Not Available hydrocortis one 2.5 % topical cream 05/23 completed Not Available Not Available Not Available levothyroxi ne 200 mcg tablet TAKE 1 TABLET BY MOUTH DAILY 10/16 completed Not Available Not Available Not Available ergocalcife rol (vitamin D2) 1,250 mcg (50,000 unit) capsule TAKE 1 CAPSULE BY MOUTH EVERY WEEK active Not Available Not Available No t Available ibuprofen 600 mg tablet TAKE 1 TABLET BY MOUTH EVERY 6 HOURS NEEDED FOR PAIN 06/13 completed Not Available Not Available Not Available polyethylen e glycol 3350 17 gram/dose oral powder MIX 17GRAMS AND TAKE BY MOUTH TWICE DAILY 09/03 completed Not Available Not Available Not Available methylpredn isolone 4 mg tablets in a dose pack FOLLOW PACKAGE DIRECTION S 07/14 completed Not Available Not Available Not Available ondansetron 4 mg disintegrat ing tablet DISSOLVE ONE TABLET BY MOUTH EVERY 6 HOURS NEEDED FOR NAUSEA AND VOMITING 06/13 completed Not Available Not Available Not Available levothyroxi ne 112 mcg tablet TAKE 1 TABLET BY MOUTH DAILY WITH 150MCG DOSE 06/13 completed Not Available Not Available Not Available oxycodone 5 mg tablet TAKE 1 TABLET BY MOUTH EVERY 4 HOURS NEEDED 06/13 completed Not Available Not Available Not Available Poly-Iron 150 mg iron capsule TAKE 1 CAPSULE BY MOUTH EVERY DAY 09/03 completed Not Available Not Available Not Available Depo-Lighting Director a 150 mg/mL intramuscul ar syringe Inject 1 mL every 3 months by intramusc ular route. 2024 active Not Available Not Available Not Avai lable nitrofurant oin monohydrate /macrocryst als 100 mg capsule TAKE 1 CAPSULE BY MOUTH EVERY 12 HOURS WITH FOOD FOR 7 DAYS 01/09 completed Not Available Not Available Not Available levothyroxi ne 07/17 completed 250mc g Not Available Not Available Not Available Nausea Control 05/21 completed Not Available Not Available Not Available 05/26 completed Not Available Not Available Not Available Humira 05/21 completed Not Available Not Available Not Available Poly Iron PN 05/21 completed Not Available Not Available Not Available ferrous gluconate 324 mg (38 mg iron) tablet TAKE 1 TABLET BY MOUTH EVERY DAY active Not Available Not Available No t Available Sudogest 12-hour 120 mg tablet,exte nded release TAKE 1 TABLET BY MOUTH EVERY 12 HOURS NEEDED FOR NASAL CONGESTIO N 07/14 completed Not Available Not Available Not Available peg 3350-electr olytes 236 gram-22.74 gram-6.74 gram-5.86 gram solution MIX AND DRINK DIRECTED 06/13 completed Not Available Not Available Not Available Cimzia 400 mg/2 mL (200 mg/mL x 2) subcutaneou s syringe kit active Not Available Not Available Not Available butalbital- acetaminoph en-caffeine 50 mg-300 mg-40 mg capsule TAKE 1 CAPSULE BY MOUTH EVERY 8 HOURS NEEDED FOR PAIN 07/14 completed Not Available Not Available Not Available Nexplanon 07/11 completed Not Available Not Available Not Available Humira(CF) Pen 40 mg/0.4 mL subcutaneou s kit 01/28 completed Not Available Not Available Not Available Humira(CF) Pen Crohn's-Ulc Colitis-Hid Sup Strt 80 mg/0.8 mL subcut kt 04/04 completed Not Available Not Available Not Available ID NOW COVID-19 Test Kit TEST DIRECTED TODAY 01/28 completed Not Available Not Available Not Available Vitals Date Recorded Body height Body mass index (BMI) Body weight Systolic blood pressure Diastolic blood pressure Provider Name and Address Organization Details Last Updated DateTime 04/20/2024 170.18 cm 41 kg/m2 458092.2 g 111 mm[Hg] 72 mm[Hg] Jacque Marquez [facility] 4 11:37:52 Date Recorded Body height Body mass index (BMI) Body weight Systolic blood pressure Diastolic blood pressure Provider Name and Address Organization Details Last Updated DateTime 05/26/2024 170.18 cm 40.7 kg/m2 817652.0 2 g 119 mm[Hg] 82 mm[Hg] Barbra Gee [facility] 4 15:55:11 Social History Question Answer Notes LastModified by Organizat ion Details LastModified Time Tobacco Smoking Status Former Smoker Poonam Jessica leon, [facility] 07/11/2022 11:02:49 What Is Your Level Of Alcohol Consumption? None [email or web address] Information not available 01/22/2020 If You Are , What Was Your Level Of Alcohol Consumption Prior To ? None Information not available 08/12/2020 Are You Blind Or Do You Have Difficulty Seeing? No Information not available 01/28/2022 What Is Your Level Of Caffeine Consumption? Moderate Information not available 07/05/2020 In The 14 Days Before Symptom Onset, Have You Had Close Contact With A Laboratory-confir med COVID-19 While That Case Was Ill? No Information not available 10/16/2022 In The 14 Days Before Symptom Onset, Have You Had Close Contact With A Person Who Is Under Investigation For COVID-19 While That Person Was Ill? No Information not available 10/16/2022 Have You Been To An Area Known To Be High Risk For COVID-19? No Information not available 10/16/2022 Are You Deaf Or Do You Have Serious Difficulty Hearing? No Information not available 01/28/2022 Do You Or Have You Ever Used E-cigarettes Or Vape? Current User Of Electronic Cigarettes Vape Daily Information not available 07/11/2022 How Many Days Of Moderate To Strenuous Exercise, Like A Brisk Walk, Did You Do In The Last 7 Days? 4 Information not available 08/12/2020 What Was The Date Of Your Most Recent Tobacco Screening? 03/22/2020 Information not available 08/12/2020 Do You Use Your Seat Belt Or Car Seat Routinely? Yes Information not available 01/28/2022 Do You Have Smoke And Carbon Monoxide Detectors In Your Home? Yes Information not available 01/28/2022 Do You Or Have You Ever Used Smokeless Tobacco? Never Used Smokeless Tobacco Information not available 08/12/2020 How Much Tobacco Do You Smoke? No [email or web address] Information not available 03/22/2020 Do You Feel Stressed (tense, Restless, Nervous, Or Anxious, Or Unable To Sleep At Night)? [id number] Information not available 01/28/2022 Do You Use Any Illicit Or Recreational Drugs? No Information not available 07/05/2020 Do You Use Sunscreen Routinely? Yes Information not available 01/28/2022 Has Tobacco Cessation Counseling Been Provided? No Information not available 08/12/2020 Do You Or Have You Ever Used Any Other Forms Of Tobacco Or Nicotine? Yes Information not available 07/11/2022 Sex: Unknown Functional Status Question Answer Note LastModified by Organizat ion Details LastModified Time Do you have difficulty walking or climbing stairs? No Information not available 01/28/2022 Are you able to walk? YESWOREST Information not available 01/28/2022 Are you able to care for yourself? Yes Information not available 01/28/2022 Do you have difficulty dressing or bathing? No Information not available 01/28/2022 What is your exercise level? Moderate Information not available 07/05/2020 Mental Status None recorded. Family History Relationship Description Onset Age of this Age Resolved Age Notes LastModified by Organization Details LastModified Time Maternal Aunt Heart disease Not available 2020 16:14:51 Maternal Grandmother Diabetes mellitus Not available 2020 16:14:51 Maternal Grandmother Disorder of thyroid gland Not available 2020 16:14:51 Maternal Grandmother Hypertensive disorder Not available 2020 16:14:51 Mother Hypertensive disorder Not available 2020 16:14:51 Mother Disorder of thyroid gland Not available 2020 16:14:51 Maternal Grandfather Heart disease Not available 2020 16:14:51 Maternal Grandfather Diabetes mellitus Not available 2020 16:14:51 Maternal Grandfather Hypertensive disorder Not available 2020 16:14:51 Maternal Uncle Diabetes mellitus Not available 2020 16:53:31 Medical History Condition Response Allergies (Food, seasonal, environmental ) N Other N Drug/Latex Allergies/Reactions N Breast Cancer N Blood Transfusion N Lung Disease N Dermatologic Disorders N Defects or Inherited Disease N Breast Problem N Gestational Diabetes N Hematologic disorders N Anesthesia Complications N History of STI N Deep Vein Thrombosis N Polycystic ovary syndrome N Anxiety Disorder N Autoimmune disease N Arthritis N Polyps N Infertility N History of abnormal pap N Acid Reflux (GERD) N Cancer N Varicosities N Stroke N Neurologic/Epilepsy N Endometriosis N High Cholesterol N Headaches N Fibromyalgia N Kidney Disease N Heart Problems N Thyroid Problems N Kidney or Bladder Problems N GI Problems N Eating Disorder N Anemia N Art (IVF or FET) N Psychiatric Illness N Ovarian Cancer N Diabetes N Pulmonary (TB, Asthma) N Hepatitis/Liver Disease N No Past Medical History N Eczema N Urinary Tract Infection N Abuse/Domestic Violence N Asthma N Trauma/Violence N Depression/ depression N Heart Disease N Pre-Eclampsia N Hypertension N Osteoporosis N Thrombophilias N Gynecological History Statement/Question Response Abnormal Pap N Flow Light Date of LMP 05/07/2024 STIs/STDs N HPV Vaccine N Duration of Flow (days) 19 13 Current Control Method Depo-Lighting Director a Sexually Active? Y Menses Monthly N Date of Last Pap Smear 07/13/2022 Sexual Problems? N Desired Control Method None LMP Approximate Obstetrics History GPAL:G 2 P 2 0 0 2 Type Value Full Term 2 Living 2 Total 2 Past Encounters Encounter ID Performer Location Encounter Start Date Encounter Closed Date Diagnosis/Indication Diagnosis SNOMED-CT Code Diagnosis ICD10 Code Diagnosis Note [id number] Candelaria Mancia [place] [address] [address] 01/22/2020 11:43:01 01/22/2020 12:55:21 test positive 737158647 Z32.01 Risk factors addressed: Tobacco Cessation, Safe Sexual Practices, environmen jacob, work hazards, travel restrictio ns, seat belt use.Eat a health well balanced diet, avoid alcohol, tobacco, and street drugs. Engage in daily low impact exercise, avoid temperatur e extremes, and cat, rodent, and bird feces.Avoi d travel to areas where zika virus is a concern.Fi rst look offered to patient. First look accepted by patient and will be scheduled. Sequential Screen handout given and discussed with patient. ildbirth classes recommende d.New OB sheet given. Pt unsure the name of her specialis t . When she gets home she will call and let us know so that we can request records. Will plan to check tsh in 3-4 weeks since she just resumed her medication . Pending reviewing records will plan on MFM consult. Just don't want to repeat if that is the specialist she saw. If previous , counseling .Pt verbalizes that she understand s the importance of above instructio ns.All questions were answered. Patient reminded to have annual well woman examinatio n and address [facility] [id number] [facility] [address] [address] 01/22/2020 12:23:02 01/22/2020 13:33:55 [id number] Rod Larson MD [place] [address],[place] [address] 02/19/2020 10:50:07 02/19/2020 12:32:22 screening 160145139 Z36.82 Z36.0 Z36.89 Routine an tenatal care 100904602 Z34.01 [id number] [facility] [address],[place] [address] 02/19/2020 10:50:56 02/19/2020 13:55:14 screening 310549561 Z36.82 Z36.0 Z36.89 [id number] Piedad Hernandez [facility] [address],[place] [address] 03/22/2020 12:18:58 03/22/2020 14:34:02 Routine care 964747880 Z34.92 [id number] [facility] [address],[place] [address] 04/22/2020 12:42:59 04/22/2020 13:35:39 Routine care 200502239 Z34.92 [id number] [facility] [address],[place] [address] 05/23/2020 10:45:56 05/23/2020 12:04:07 Routine care 660957874 Z34.92 [id number] [facility] [address],[place] [address] 06/05/2020 10:22:47 06/05/2020 12:31:07 Routine care 802285655 Z34.92 [id number] Rod Larson MD [place] [address],[place] [address] 07/04/2020 11:23:10 07/04/2020 13:24:03 Routine care 081968352 Z34.01 [id number] Palma Rebollar [facility] [address],[place] [address] 07/04/2020 11:27:37 07/04/2020 12:30:48 Maternal obesity complicating , childbirth and the puerperium, antepartum 9841162299 07 O99.213 [id number] Amy Cummings [place] [address],[place] [address] 07/04/2020 12:06:51 07/04/2020 13:23:52 condition affecting obstetrical care of mother 706625726 O36.8330 Z3A.32 [id number] Palma Rebollar [facility] [address],[place] [address] 07/08/2020 10:29:21 07/11/2020 08:34:32 Maternal obesity complicating , childbirth and the puerperium, antepartum 8845393669 07 O99.213 [id number] Brittany Cobian [place] [address],[place] [address] 07/08/2020 11:43:54 07/11/2020 08:34:12 condition affecting obstetrical care of mother 542620735 O36.8330 [id number] Palma Rebollar [facility] [address],[place] [address] 07/15/2020 12:23:40 07/15/2020 12:58:25 Maternal obesity complicating , childbirth and the puerperium, antepartum [id number] 07 O99.213 [id number] Candelaria Mancia [place] [address],[place] [address] 07/18/2020 10:33:37 07/18/2020 11:31:06 Routine care 256265551 Z34.92 Additional precaution amelia measures were taken to minimize potential exposure to the Covid-19 virus during this patient s visit, including 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 All staff wore face coverings during this encounter, as well as provided additional cleaning and sanitizing of all surfaces, including countertop s, pens, chairs, door handles, light switches, etc, prior to and following the patient s visit. [id number] Palma Rebollar [facility] [address],[place] [address] 07/18/2020 10:34:04 07/18/2020 11:28:11 Maternal obesity complicating , childbirth and the puerperium, antepartum [id number] 07 O99.213 [id number] Candelaria Mancia [place] [address],[place] [address] 07/25/2020 09:25:19 07/25/2020 10:20:21 Routine care 352006116 Z34.92 Additional precaution amelia measures were taken to minimize potential exposure to the Covid-19 virus during this patient s visit, including 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 All staff wore face coverings during this encounter, as well as provided additional cleaning and sanitizing of all surfaces, including countertop s, pens, chairs, door handles, light switches, etc, prior to and following the patient s visit. [id number] Palma Rebollar [place] [address],[place] [address] 07/25/2020 09:24:37 07/25/2020 10:25:13 Maternal obesity complicating , childbirth and the puerperium, antepartum [id number] 07 O99.213 [id number] [facility] [address],[place] [address] 1 07/25/2020 10:07:47 07/25/2020 11:35:02 condition affecting obstetrical care of mother 644928636 O36.8330 Z3A.35 [id number] Palma Rebollar [facility] [address] [place] [address] 1 07/29/2020 12:34:01 07/29/2020 13:33:05 Maternal obesity complicating , childbirth and the puerperium, antepartum [id number] 07 O99.213 [id number] Brittany Cobian [place] [address] [place] [address] 1 07/29/2020 13:23:51 07/29/2020 14:07:10 condition affecting obstetrical care of mother 936652496 O36.8330 [id number] [place] [address],[place] [address] 08/01/2020 10:30:46 08/02/2020 15:36:37 Routine care 822861732 Z34.92 Additional precaution amelia measures were taken to minimize potential exposure to the Covid-19 virus during this patient s visit, including 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 All staff wore face coverings during this encounter, as well as provided additional cleaning and sanitizing of all surfaces, including countertop s, pens, chairs, door handles, light switches, etc, prior to and following the patient s visit. [id number] Palma Rebollar [place] [address],[place] [address] 08/01/2020 10:29:39 08/01/2020 12:05:12 Maternal obesity complicating , childbirth and the puerperium, antepartum 6006619212 07 O99.213 [id number] Palma Rebollar [place] [address] [place] [address] 08/05/2020 10:28:01 08/05/2020 13:50:05 Maternal obesity complicating , childbirth and the puerperium, antepartum 6583293778 07 O99.213 [id number] [place] [address] [place] [address] 1 08/08/2020 10:31:28 09/03/2020 19:20:39 [id number] aPlma Rebollar [place] [address] [place] [address] 1 08/08/2020 10:30:15 08/08/2020 11:38:20 Maternal obesity complicating , childbirth and the puerperium, antepartum 9149022227 07 O99.213 [id number] Palma Rebollar [place] [address] [place] [address] 1 08/12/2020 11:34:39 08/12/2020 13:04:44 Maternal obesity complicating , childbirth and the puerperium, antepartum 3879789915 07 O99.213 [id number] Palma Rebollar [facility] [address],[place] [address] 08/15/2020 13:54:25 08/15/2020 14:52:17 Maternal obesity complicating , childbirth and the puerperium, antepartum 4347809001 07 O99.213 [id number] Melba Wren [place] [address],[place] [address] 08/15/2020 13:54:49 08/15/2020 15:09:33 condition affecting obstetrical care of mother 759500486 O36.8330 O36.63X0 Z3A.38 [id number] Rod Larson MD [place] [address],[place] [address] 1 08/15/2020 13:55:07 08/15/2020 15:34:45 Routine care 712985242 Z34.01 [id number] Palma Rebollar [facility] [address] [place] [address] 1 08/19/2020 10:23:58 08/19/2020 11:53:03 Maternal obesity complicating , childbirth and the puerperium, antepartum 9223728606 07 O99.213 [id number] Rod Larson MD [place] [address],[place] [address] 09/03/2020 16:08:34 09/03/2020 16:53:24 Postoperative care 048265184 Z48.89 This patient is a 20-year-ol d female who presents for postop follow-up. She is 1 week postop from a delivery. Her incision is clean dry and intact. She has no complaints . Her bleeding is minimal. She denies any nausea, vomiting, fever, chills. She denies any chest pain or shortness of breath. Her baby is doing well. Her mood is good. [id number] Rod Larson MD [place] [address],[facility] [place] [address] 09/09/2020 11:27:17 09/09/2020 12:23:02 Contraception care management 593639516 Z30.9 Nexplanon inserted without complicati ons. She was advised to abstain for 2 weeks [id number] Brittany Tamayo [facility] [address],[place] [address] 04/04/2021 14:52:57 04/04/2021 15:59:51 Gynecologic examination 63905946 Z01.419 Take Calcium with Vitamin D 1200mg daily if not receiving in daily diet. It is strongly advised to have an annual flu shot and up can obtain at most pharmacies . If you have not had a TDap shot in the last 10 years you should obtain one as well. Discussed with patient & provided with informatio n regarding Gardisil vaccine to prevent the 4 strains for HPV that cause cervical cancer. Encourage safe sexual practices, to use condoms and limit partners if not already in a monogamous relationsh ip. Do monthly self breast exams. BRCA testing is now available for patients with strong genetic history of female cancer. If interested contact the office. Engage in daily exercise of low impact aerobic exercise 45-60 minutes 4-5 times weekly. Avoid tobacco, illicit drugs, and alcohol. This lifestyle behavior pattern will lead to less health conditions and longer life span. If BMI greater than 25 weight watchers or dietary consult advised. Pap smear is not recommende d prior to the age of 21. If you have any concerns, pelvic, or vaginal problems we can discuss testing. Patient received above instructio ns, and questions have been answered. If you have any questions please call or respond to this email. Patient was made aware of the patient portal and may obtain a paper copy of today's plan if desired. STD screen declinedPr imary pap next yearSBE completed & taughtNexp lanon for BC.Neg HPV vacc. (Recommend ed up through age 26yo). [id number] Brittany Tamayo [facility] [address],[place] [address] 01/28/2022 14:14:24 01/28/2022 15:28:23 Abnormal uterine bleeding [id number] 9100 N93.9 The patient and I discussed the various causes of abnormal uterine bleeding, including polyps, fibroids, hyperplasi a, atypia, anovulatio n, etc. We reviewed the typical evaluation with labs, pelvic US and possible endometria l biopsy. Briefly discussed the options available for treatment (depending on the results of evaluation ) such as hormonal treatment (OCPs, progestins ), Mirena, endometria l ablation, and surgery. We spent more than 30 minutes face to face. [id number] Rod Larson MD [place] [address],[place] [address] 01/30/2022 15:24:34 02/02/2022 14:21:05 Pain in pelvis 73824490 R10.2 Cyst of ovary 96638931 N 83.209 this patient is a 22-year-ol d female presents for pelvic pain and ovarian cyst. She has a very large ovarian cyst. Is about 17 cm in size. We need a more thorough ultrasound evaluation of this mass. A determinat ion of the possibilit y of malignancy here is important. We need to obtain a CA 125. We will discuss the ultrasound results and consider surgical release of the cyst. This may need to be done with the gynecology oncologist . [id number] Melba Wren [place] [address],[facility] [place] [address] 02/03/2022 16:02:13 02/03/2022 17:55:22 Cyst of left ovary [id number] 1307183 N83.292 R93.89 [id number] Rod Larson MD [place] [address],[facility] [place] [address] 02/03/2022 16:03:06 02/04/2022 14:29:40 Cyst of ovary 59295351 N83.209 This patient is a 22-year-ol d female. She has a large pelvic ovarian cyst. Initially little details given about the ovarian cyst from the radiology report was received. We repeated the ultrasound . There was a lot of internal complexity . There are septations with blood flow. I told the patient about this and showed her the images. I recommende d that we send her to gynecology oncology. She agreed to that. We will make arrangemen ts to send her to gynecology oncology. I told her about the risks of this structure. The likelihood of malignancy . It is likely very low but needs to be performed by a gynecologi c oncologist . This needs to be removed. [id number] Rod Larson MD [place] [address],[place] [address] 06/12/2022 16:34:04 06/15/2022 14:16:46 Cyst of ovary 20207718 N83.209 this patient is a 22-year-ol d female with an ovarian cyst. She presents for ER follow-up. She was seen for left-sided pain. Her CT scan showed a right-side d cyst. we discussed those findings. We discussed her pain. We discussed the etiology, natural history, treatment of ovarian cyst. We agreed to evaluate the cyst further with ultrasound . 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 It was removed. We spent over 20 minutes face-to-fa ce. More than 50% was counseling . [id number] Rod Larson MD [place] [address],[place] [address] 06/13/2022 10:27:59 06/15/2022 10:02:22 Contraception care management 954908139 Z30.9 Nexplanon was removed the complicati ons [id number] Nasrin Will [place] [address],[place] [address] 06/16/2022 16:20:16 06/17/2022 14:22:35 Cyst of right ovary [id number] [id number] N83.201 [id number] Rod Larson MD [place] [address],[place] [address] 06/26/2022 14:12:50 06/29/2022 14:58:39 Cyst of ovary 43190862 N83.209 This patient is a 22-year-ol d female presents for follow-up on ultrasound . She had mildly complex cyst of the ovary. She has had a ovarian mass removed. Was a large cystic structure that was likely tumor. She did know what it was. It was done by Gyne Onc. We talked about her ultrasound findings today. We spent 20 minutes face-to-fa ce. More than 50% was counseling . We agreed to follow-up on this cyst with a repeat ultrasound 6 weeks. [id number] Rod Larson MD [place] [address],[facility] [place] [address] 07/11/2022 10:43:39 07/13/2022 11:03:34 Gynecologic examination 42247881 Z01.419 Annual gynecologi karime exam performed. Patient will come back in a year unless there are new symptoms. Suggest Calcium with Vitamin D if not eating in diet. Patient advised to get annual flu shot. Recommend yearly physicals and preform monthly breast exams. Genetic testing is available for patients with family history of cancer. Engage in safe sexual practices, use condoms. Encouraged to have daily exercise. Avoid tobacco and illicit drugs, moderation of alcohol. If BMI greater than 25 dietary consult advised. If you have any questions please call or email. Cholestero l - [done ] Pap - today Vaginal discharge 904443 006 N89.8 [id number] Melba [facility] [address],[facility] [place] [address] 08/06/2022 16:20:52 08/06/2022 17:24:56 Cyst of right ovary [id number] [id number] N83.291 [id number] Rod Larson MD [place] [address] [address] 08/07/2022 15:01:08 08/10/2022 12:52:11 Urinary symptoms 950860952 R39.9 Cyst of ovary 22835789 N 83.209 This patient is a 22-year-ol d female presents for follow-up on ultrasound . She had mildly complex cyst of the ovary. She has had a ovarian mass removed. Was a large cystic structure that was likely tumor. She did know what it was. It was done by Gyne Onc. follow-up ultrasound on the ovarian cyst was performed today or recently. The cysts seemed to resolve. So we will just observe her for symptoms. She reports urinary symptoms. She reports some frequency. We checked her urine. She has a urine dip positive for nitrates and leukocytes and red blood cells. To treat with antibiotic s. [id number] [facility] [address] [address] 08/11/2022 15:12:57 08/11/2022 15:56:59 Insertion of intrauterine contraceptive device 53883653 Z30.430 She has been counseled on all of the r/b/a of placement of an intrauteri ne device that include but are not limited to uterine perforatio n, injury to cervix, vagina, bladder, and bowel.Risk s of bleeding due to injury or increased irregular bleeding due to progestin effect of the device. Risks of infection would be increased within the first 21 days of placement with concommita nt cervicitis . She understand s that the device will need to be removed in this instance due to increased risk of Pelvic inflammato ry disease. Patient is aware she is at higher risk for STD and if contracted she could lose her fertility. Pt is aware that if occurs that she should contact office immediatel y to rule out ectopic which could be life threatenin g. IUD will also need to be removed and this could cause miscarriag e. Patient also informed that in the event her strings are absent or embedded at the time of removal she may need to have the IUD surgically removed. She was informed of the above and properly consented. IUD placed w/o complicati on. Patient should return to office after next period to check for string placement. Patient to expect irregular bleeding but should be seen in the ED if bleeding increases to soaking a pad an hour for at least 2 hours. She verbalized understand ing. RTO x 6-8wks Screening procedure 2012 5006 Z13.9 [id number] [facility] [address] [address] 10/07/2022 15:46:13 10/07/2022 16:54:27 Cyst of right ovary [id number] [id number] N83.291 [id number] Rod Larson MD [place] [address] [address] 10/09/2022 15:18:15 10/12/2022 14:47:41 Cyst of ovary 54162967 N83.209 this patient is a 22-year-ol d female presents for follow-up on ovarian cyst. We reviewed her results. We talked about her ovarian cyst the prevention ovarian cyst. Talked about the etiology, natural history, prevention of ovarian cyst. Loss talked about treatment. Her ultrasound showed a resolution of her previously seen cyst. We will observe her problem. We will observe symptoms and consider further evaluation for further symptoms. [id number] Brittany Tamayo [place] [address],[place] [address] 10/16/2022 15:24:27 10/16/2022 15:38:11 IUD check 448831432 Z30.431 Patient is here for 4-6wk IUD string check. She denies complicati ons, pain, or unpleasant side effects. Happy with this control method. Wishes to continue. Time spent in visit is a total of 15 mins with at least 50% of visit consisting of counseling and review of plan of care. [id number] Brittany Tamayo [facility] [address],[place] [address] 01/12/2023 17:52:16 01/13/2023 16:15:31 Removal of intrauterine device 03621078 Z30.432 See procedure notesFaile d attemptAgr eed to trial US guided removal next; if this does not work hysterosco py will be needed for removal which would require MD consult. [id number] Brittany Tamayo [place] [address],[place] [address] 01/28/2023 09:17:21 02/03/2023 12:01:24 Mechanical complication of intrauterine contraceptive device 035366363 T83.39XD It was explained that she may have bleeding or spotting after the removal of the device today as well. Consent signed for removal of IUD; confirmed UPT neg. Tolerated US guided removal today due to complicati on/unable to visualize strings. No prevention of once removed. She expressed understand ing of all the above instructio ns. [id number] Melba Wren [place] [address],[place] [address] 01/28/2023 09:18:18 01/28/2023 09:59:32 Mechanical complication of intrauterine contraceptive device 758618439 T83.39XA [id number] [facility] [address],[place] [address] 01/28/2023 10:27:27 01/28/2023 12:07:50 IUD threads lost 286862978 T83.89XD T83.39XS See procedure note (and US encounter note).No other contracept ion desired. [id number] [facility] [address],[place] [address] 07/06/2023 10:12:31 07/06/2023 11:17:44 screening 649486230 Z36.87 O36.80X0 Z3A.01 [id number] Rod Larson MD [place] [address],[place] [address] 07/06/2023 10:13:24 07/06/2023 21:37:41 [id number] [facility] [address],[place] [address] 07/14/2023 16:06:18 07/14/2023 18:37:43 Uncertain viability of 354573419 O36.80X0 O36.8910 Z3A.01 [id number] DONELL BARKSDALE MD [place] [address],[place] [address] 07/14/2023 16:06:48 07/14/2023 17:37:42 test positive 234930143 Z32.01 1. Exam today within normal limits.2. Ultrasound today confirms GA and viability. EDC . GC/Clamydi a testing done: will f/u as indicated. 4. ACOG guidelines and plan of care for reviewed with patient. All questions answered.5 . Return to office at 12 weeks for new OB visit6. Will need new OB labs at next visit.7. Genetic screening: desires. Previous u terine surgical scar 574728148 Z98.891 - desires TOLAC [id number] Amy Cummings [place] [address],[place] [address] 08/06/2023 14:09:43 08/06/2023 14:59:02 [id number] Melba Wren [place] [address],[place] [address] 08/27/2023 11:25:20 08/27/2023 12:09:22 screening 877277913 Z36.82 Z3A.12 [id number] DONELL BARKSDALE MD [place] [address],[place] [address] 08/27/2023 11:26:17 09/10/2023 12:10:32 Routine care 741510916 Z34.90 Past pregn kristina history of section 094107818 Z98.890 Salpingo-oophorectomy 11 4477233 Z40.02 Crohn's disease 62757583 K50.90 Gestation period, 12 weeks 09589073 Z3A.12 [id number] DONELL BARKSDALE MD [place] [address],[place] [address] 09/27/2023 11:52:25 09/27/2023 12:48:12 Crohn's disease 28434357 K50.90 Past pregn kristina history of section 650636444 Z98.890 Hypothyroidism 55745752 E03.9 Low back p ain in 1247761020 106 O26.899 Gestation period, 16 weeks 44363767 Z3A.16 [id number] [facility] [address],[place] [address] 10/29/2023 10:59:43 10/29/2023 16:17:38 screening for malformation 939508210 Z36.3 O99.210 Z3A.21 [id number] DONELL BARKSDALE MD [place] [address],[place] [address] 10/29/2023 11:00:26 10/30/2023 11:33:24 Past history of section 717117218 Z98.890 Hypothyroidism 17821073 E03.9 Crohn's disease 98938571 K50.90 Gestation period, 21 weeks 30454279 Z3A.21 DONELL BARKSDALE MD [place] [address],[facility] [place] [address] 11/29/2023 11:48:54 11/29/2023 12:30:15 Hypothyroidism 92687412 E03.9 Gestation period, 25 weeks 02685261 Z3A.25 [id number] DONELL BARKSDALE MD [place] [address],[place] [address] 12/27/2023 11:54:56 12/27/2023 14:07:56 Ultrasound scan abnormal 461452987 R93.89 - unable to see 3VV and spine views- will send to [facility] referral for completion of anatomy US Hypothyroidism 68281210 E03.9 Past pregn kristina history of section 842601982 Z98.890 Breech presentation 6096 002 O32.1XX9 Gestation period, 29 weeks 62124533 Z3A.29 - continue vitamin [id number] Melba [facility] [address],[place] [address] 12/27/2023 12:09:07 12/27/2023 13:00:24 screening 050386214 Z36.2 Z3A.29 [id number] DONELL BARKSDALE MD [place] [address],[place] [address] 01/10/2024 11:20:44 01/10/2024 12:05:54 Hypothyroidism 72001452 E03.9 - continue synthroid- follows with endocrinol ogy Past pregn kristina history of section 367112863 Z98.890 - desires TOLAC Salpingo-oophorectomy 11 8787811 Z40.02 Breech presentation 6096 002 O32.1XX9 - will follow presentati on with MFM scan 01/11- if persistent , will discuss spinning babies, etc Gestation period, 31 weeks 20611697 Z3A.31 - continue pNV [id number] DONELL BARKSDALE MD [place] [address],[place] [address] 01/24/2024 12:46:06 01/26/2024 12:54:34 Crohn's disease 46059025 K50.90 Hypothyroidism 32213541 E03.9 - continue synthroid- follows with endocrinol ogy Past pregn kristina history of section 880726379 Z98.890 - desires TOLAC Gestation period, 33 weeks 25196601 Z3A.33 - continue PNV [id number] DONELL BARKSDALE MD [place] [address],[place] [address] 02/08/2024 15:19:19 02/08/2024 16:38:21 Hypothyroidism 77325997 E03.9 - continue synthroid- follows with endocrinol ogy Crohn's disease 55337758 K50.90 Past pregn kristina history of section 230926384 Z98.890 - desires TOLAC Gestation period, 35 weeks 40246264 Z3A.35 - continue PNV [id number] [facility] [address],[place] [address] 02/21/2024 10:59:27 02/21/2024 11:56:03 Hypothyroidism in 437258856 E03.9 [id number] [facility] [address],[place] [address] 02/21/2024 11:01:16 02/21/2024 12:21:47 Hypothyroidism 77295973 E03.9 [id number] DONELL BARKSDALE MD [place] [address],[place] [address] 02/21/2024 11:01:34 02/21/2024 12:41:27 Crohn's disease 39185245 K50.90 Hypothyroidism 19472216 E03.9 - continue synthroid- follows with endocrinol ogy Past pregn kristina history of section 331467728 Z98.890 - desires TOLAC Gestation period, 37 weeks 82076295 Z3A.37 - continue PNV Maternal o besity complicating , childbirth and the puerperium, antepartum 0750476603 07 O99.213 - continue weekly BPPs [id number] [facility] [address],[place] [address] 02/28/2024 10:54:14 02/28/2024 11:44:50 Hypothyroidism in 761217786 E03.9 [id number] [facility] [address],[place] [address] 02/28/2024 10:54:45 02/28/2024 17:00:15 Hypothyroidism in 703572791 E03.9 [id number] DONELL BARKSDALE MD [place] [address],[place] [address] 02/28/2024 10:55:48 02/28/2024 12:39:14 Crohn's disease 03727499 K50.90 Hypothyroidism 62134589 E03.9 - continue synthroid- follows with endocrinol ogy Past pregn kristina history of section 380159930 Z98.890 - desires TOLAC Maternal o besity complicating , childbirth and the puerperium, antepartum 7411557961 07 O99.213 - continue weekly BPPs Gestation period, 38 weeks 35225633 Z3A.38 - continue PNV [id number] Melba Wren [place] [address],[place] [address] 03/06/2024 10:57:20 03/06/2024 12:23:42 Hypothyroidism in 514066511 O99.283 O36.63X0 Z3A.39 [id number] Brittany Cobian [place] [address],[place] [address] 03/06/2024 10:57:58 03/06/2024 14:42:42 Hypothyroidism in 464177362 O99.283 O36.63X0 Z3A.39 [id number] DONELL BARKSDALE MD [place] [address],[place] [address] 03/06/2024 10:58:13 03/06/2024 13:29:38 Excessive growth affecting management of mother 04996996 O36.63X0 - EFW 99% (4549g) today- hx of PCS for failure to descend for 9lb baby Crohn's disease 32295857 K50.90 Hypothyroidism 10343355 E03.9 - continue synthroid- follows with endocrinol ogy Past pregn kristina history of section 247490287 Z98.890 - unsure TOLAC vs RCS given suspected LGA fetus- discussed risks of surgery, including bleeding, infection, and injury to adjacent structures - patient to call clinic once she has made a decision Salpingo-oophorectomy 11 7382373 Z40.02 Gestation period, 39 weeks 49204257 Z3A.39 [id number] Rod Larson MD [place] [address],[place] [address] 03/15/2024 11:38:59 03/15/2024 12:21:38 Postoperative care 834299410 Z48.89 This patient is a 24-year-ol d female who presents for postop follow-up. She is 1 week postop from a delivery. Her incision is clean dry and intact. She has no complaints . Her bleeding is minimal. She denies any nausea, vomiting, fever, chills. She denies any chest pain or shortness of breath. Her baby is doing well. Her mood is good. [id number] DONELL BARKSDALE MD [place] [address],[place] [address] 04/18/2024 14:59:35 04/18/2024 15:53:46 care [id number] Z39.2 S/p RLTCS 6 weeks ago here today for a visit.1. Patient recovering well2. Plans to continue formula feeding3. Interested in depo for contracept ion at this time. Risks, benefits, and alternativ es reviewed with the patient4. Patient instructed to follow up in 6-12 months for well woman exam unless need arises prior [id number] Jacque Marquez [facility] [address],[place] [address] 04/20/2024 10:47:56 04/20/2024 12:13:17 Screening procedure 69954126 Z13.9 Contraception care 23392 5005 Z30.40 [id number] Rod Larson MD [place] [address],[place] [address] 05/26/2024 15:17:44 05/26/2024 16:34:48 Abnormal uterine bleeding [id number] 9100 N93.9 this patient is a 24-year-ol d female with irregular bleeding. She recently started Depo shot. It was about 6 weeks ago. She had a baby about 3 months ago. But she has had irregular bleeding since the delivery of the baby. We are going to get a pelvic ultrasound to rule out retained placenta. Then will observe for resolution of her bleeding due to the Depo-Prove ra shot. I spent over 20 minutes on the patient's care. We reviewed her history, discussed her medication s. We discussed future possible treatments for abnormal uterine bleeding. Discussed ultrasound evaluation . [id number] Amy Cummings [place] [address],[facility] [place] [address] 06/02/2024 11:21:24 06/02/2024 11:59:27 Irregular periods 63412517 N92.6 [id number] Rod Larson MD [place] [address],[place] [address] 06/14/2024 16:55:48 06/15/2024 19:14:37 [id number] Barbra Gee [place] [address],[place] [address] 07/19/2024 17:21:09 07/19/2024 17:48:27 Contraception care management [id number] Z30.9 Health Concerns Section Related Observation LastModified by Organization Detai ls LastModified Time None Recorded Concern Status LastModified by Organization Details LastModified Time None Recorded Advance Directives Directive None Recorded Payers Encounter Date Sequence Insurance Name Policy Number Policy Shelton Covered Member ID Shelton Member ID Guarantor Name 04/20/2024 1 [facility] (MEDICAID HMO) [id number] Silvia Kern [id number] Silvia Kern 05/26/2024 1 [facility] (MEDICAID HMO) [id number] Silvia Kern [id number] Silvia Kern 06/02/2024 1 [facility] (MEDICAID HMO) [id number] Silvia Kern [id number] Silvia Kern 06/14/2024 1 [facility] [place] (MEDICAID HMO) [id number] Silvia Kern [id number] Silvia Kern 07/19/2024 1 [facility] (MEDICAID HMO) [id number] Silvia Kern [id number] Silvia Kern Notes Date Note Type Note Provider Name and Address Organization Details Recorded Time 05/26/2024 text/html this patient is a 24-year-old female with irregular bleeding. She recently started Depo shot. It was about 6 weeks ago. She had a baby about 3 months ago. But she has had irregular bleeding since the delivery of the baby. We are going to get a pelvic ultrasound to rule out retained placenta. Then will observe for resolution of her bleeding due to the Depo-Provera shot. I spent over 20 minutes on the patient's care. We reviewed her history, discussed her medications. We discussed future possible treatments for abnormal uterine bleeding. Discussed ultrasound evaluation. Rod Larson MD [address], [place], [address], [facility] 05/26/2024 16:28:08 OBGyn Episode Ob Episode Information Episode Created Date Number of Fetuses Patient Bloodtype Patient rh Status Prepregnancy Weight lbs Domestic Partner Domestic Partner Phone Father Name Construction Estimator Status 02/19/20 20 1 O Positive 253 CLOSED Fetus Data First Name Last Name Admitted to NICU Weight (g) Sex Living Outcome Pediatric Complications Fetus ID Race Codes Race Delivery Type 4082.32 8 M true Full Term 4485 Primary Problems Problem Notes MFM - last appt 07/22 - no fu rther appts needed per MFM. Problem Name Start Date End Date Resolution Snomed Code Not e Hypothyroidism [id number] levot hyroxine 262 QD- (150mcg+112mcg) increased per pt from 07/[address] 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 Obesity 613733692 testing at 32 wks Ivan Calculation Initial Ivan Date Initial Exam Date Initial Exam Provider Initial Ultrasound Date Last Menstrual Period Date Ultra Sound Weeks Gestation 08/28/2020 02/19/2020 01/22/2020 11/06/2019 8 Eighteen To Twenty Week Ivan Update Ultra Sound Date Fundal Height At Umbil Quickening Date Ultra Sound Latest Weeks Gestation Final Ivan Confirmed By Final Ivan Confirmed Date Final Ivan Date Ultra Sound Latest Days Gestation 0 [email or web address] 02/19/2020 08/29/19 21 0 Pre- Flowsheet Flowsheet Date 01/22/2020 Collado Score Blood Edema Fundus Height Fundus Units Glucose Ketones Leukocytes Nitrite Labor Signs Protein Cervic Dilation Cervic Effacement Cervic Station Type Weight in lbs Pre/Post Dialysis Refused BP Diastolic BP Location Tested BP Systolic BP Type Fetus Heart Rate Present Fetus Movement Comments Flowsheet Date 02/19/2020 Collado Score Blood Edema Fundus Height Fundus Units Glucose Ketones Leukocytes Nitrite Labor Signs Protein Cervic Dilation Cervic Effacement Cervic Station Type Weight in lbs Pre/Post Dialysis Refused Weight 246.319595419908 BP Diastolic BP Location Tested BP Systolic BP Type 69 R arm 101 sitting Fetus Heart Rate Present Fetus Movement Comments this patient is a 20-year-ol d 1 at 12 weeks gestation who presents for initial care. She has Crohn's disease in her upper GI tract affecting the stomach. She has hypothyroidism. We agreed to check her thyroid routinely. I she has seen MFM for Humira. She is using in Humira her . she will follow up in 4 weeks. Flowsheet Date 03/22/2020 Collado Score Blood Edema Fundus Height Fundus Units Glucose Ketones Leukocytes Nitrite Labor Signs Protein Cervic Dilation Cervic Effacement Cervic Station neg none trace Type Weight in lbs Pre/Post Dialysis Refused Weight 243.865568737285 BP Diastolic BP Location Tested BP Systolic BP Type 70 111 Fetus Heart Rate Present Fetus Movement A Yes Comments PATIENT STATES THAT HAVING S OME NAUSEA AND VOMITING, call for rf of antiemetic if needed, FHR by US 147, precautions Flowsheet Date 04/22/2020 Collado Score Blood Edema Fundus Height Fundus Units Glucose Ketones Leukocytes Nitrite Labor Signs Protein Cervic Dilation Cervic Effacement Cervic Station 21 Type Weight in lbs Pre/Post Dialysis Refused Weight 248.332865498908 BP Diastolic BP Location Tested BP Systolic BP Type 63 L arm 94 sitting Fetus Heart Rate Present A 135 Fetus Movement A Yes Comments Heartburn. Has used tums wit h some improvement. Discussed use of pepcid if needed. Appt with [facility] on 05-08. Pt states the number she was given for Dr Saenz was not the correct number. New number given and stressed importance of follow up and risks related to abnormal thyroid function in . Pt verbalized understanding. Pt having a boy Delmer Wilson . Flowsheet Date 05/23/2020 Collado Score Blood Edema Fundus Height Fundus Units Glucose Ketones Leukocytes Nitrite Labor Signs Protein Cervic Dilation Cervic Effacement Cervic Station neg none 27 trace Type Weight in lbs Pre/Post Dialysis Refused Weight 262.339128766087 BP Diastolic BP Location Tested BP Systolic BP Type 84 137 Fetus Heart Rate Present A 150 Fetus Movement A Yes Comments Visit with Dr Saenz done. Incr eased levo to 250mcg. Records requested. Urine sent for repeat culture today. Pt states Dr Saenz wants a tsh draw in 2 weeks. Will do at next visit along with 1 hour gtt. Flowsheet Date 06/05/2020 Collado Score Blood Edema Fundus Height Fundus Units Glucose Ketones Leukocytes Nitrite Labor Signs Protein Cervic Dilation Cervic Effacement Cervic Station neg none 29 trace Type Weight in lbs Pre/Post Dialysis Refused Weight 261.06992692514 BP Diastolic BP Location Tested BP Systolic BP Type 74 123 Fetus Heart Rate Present Fetus Movement A Yes Comments Doing well. 1 hour gtt today along with tsh. Encouraged flu and tdap. Flowsheet Date 07/04/2020 Collado Score Blood Edema Fundus Height Fundus Units Glucose Ketones Leukocytes Nitrite Labor Signs Protein Cervic Dilation Cervic Effacement Cervic Station Type Weight in lbs Pre/Post Dialysis Refused BP Diastolic BP Location Tested BP Systolic BP Type Fetus Heart Rate Present Fetus Movement Comments Flowsheet Date 07/04/2020 Collado Score Blood Edema Fundus Height Fundus Units Glucose Ketones Leukocytes Nitrite Labor Signs Protein Cervic Dilation Cervic Effacement Cervic Station trace Type Weight in lbs Pre/Post Dialysis Refused Weight 268.873396946575 BP Diastolic BP Location Tested BP Systolic BP Type 73 R arm 117 sitting Fetus Heart Rate Present Fetus Movement A Yes Comments Flowsheet Date 07/04/2020 Collado Score Blood Edema Fundus Height Fundus Units Glucose Ketones Leukocytes Nitrite Labor Signs Protein Cervic Dilation Cervic Effacement Cervic Station 35 Type Weight in lbs Pre/Post Dialysis Refused BP Diastolic BP Location Tested BP Systolic BP Type Fetus Heart Rate Present A 150 Fetus Movement Comments growth ultrasound with MFM, testing with us. Flowsheet Date 07/08/2020 Collado Score Blood Edema Fundus Height Fundus Units Glucose Ketones Leukocytes Nitrite Labor Signs Protein Cervic Dilation Cervic Effacement Cervic Station Type Weight in lbs Pre/Post Dialysis Refused BP Diastolic BP Location Tested BP Systolic BP Type Fetus Heart Rate Present Fetus Movement Comments Flowsheet Date 07/08/2020 Collado Score Blood Edema Fundus Height Fundus Units Glucose Ketones Leukocytes Nitrite Labor Signs Protein Cervic Dilation Cervic Effacement Cervic Station Type Weight in lbs Pre/Post Dialysis Refused BP Diastolic BP Location Tested BP Systolic BP Type Fetus Heart Rate Present Fetus Movement Comments Flowsheet Date 07/15/2020 Collado Score Blood Edema Fundus Height Fundus Units Glucose Ketones Leukocytes Nitrite Labor Signs Protein Cervic Dilation Cervic Effacement Cervic Station Type Weight in lbs Pre/Post Dialysis Refused BP Diastolic BP Location Tested BP Systolic BP Type Fetus Heart Rate Present Fetus Movement Comments Flowsheet Date 07/18/2020 Collado Score Blood Edema Fundus Height Fundus Units Glucose Ketones Leukocytes Nitrite Labor Signs Protein Cervic Dilation Cervic Effacement Cervic Station Type Weight in lbs Pre/Post Dialysis Refused BP Diastolic BP Location Tested BP Systolic BP Type Fetus Heart Rate Present Fetus Movement Comments Flowsheet Date 07/18/2020 Collado Score Blood Edema Fundus Height Fundus Units Glucose Ketones Leukocytes Nitrite Labor Signs Protein Cervic Dilation Cervic Effacement Cervic Station 35 neg Type Weight in lbs Pre/Post Dialysis Refused Weight 275.806744293857 BP Diastolic BP Location Tested BP Systolic BP Type 77 121 Fetus Heart Rate Present A 140 Fetus Movement A Yes Comments Flu shot done. Encouraged TD AP. Order given to have tsh drawn at [facility] or [place] (unable to draw here today). Flowsheet Date 07/25/2020 Collado Score Blood Edema Fundus Height Fundus Units Glucose Ketones Leukocytes Nitrite Labor Signs Protein Cervic Dilation Cervic Effacement Cervic Station Type Weight in lbs Pre/Post Dialysis Refused BP Diastolic BP Location Tested BP Systolic BP Type Fetus Heart Rate Present Fetus Movement Comments Flowsheet Date 07/25/2020 Collado Score Blood Edema Fundus Height Fundus Units Glucose Ketones Leukocytes Nitrite Labor Signs Protein Cervic Dilation Cervic Effacement Cervic Station none 37 trace Type Weight in lbs Pre/Post Dialysis Refused Weight 277.501798659135 BP Diastolic BP Location Tested BP Systolic BP Type 90 137 Fetus Heart Rate Present A 135 Fetus Movement A Yes Comments Doing well. Appt with endocr inologist tomorrow. Also has level 2 u/s tomorrow. Flowsheet Date 07/25/2020 Collado Score Blood Edema Fundus Height Fundus Units Glucose Ketones Leukocytes Nitrite Labor Signs Protein Cervic Dilation Cervic Effacement Cervic Station Type Weight in lbs Pre/Post Dialysis Refused BP Diastolic BP Location Tested BP Systolic BP Type Fetus Heart Rate Present Fetus Movement Comments Flowsheet Date 07/29/2020 Collado Score Blood Edema Fundus Height Fundus Units Glucose Ketones Leukocytes Nitrite Labor Signs Protein Cervic Dilation Cervic Effacement Cervic Station Type Weight in lbs Pre/Post Dialysis Refused BP Diastolic BP Location Tested BP Systolic BP Type Fetus Heart Rate Present Fetus Movement Comments Flowsheet Date 07/29/2020 Collado Score Blood Edema Fundus Height Fundus Units Glucose Ketones Leukocytes Nitrite Labor Signs Protein Cervic Dilation Cervic Effacement Cervic Station Type Weight in lbs Pre/Post Dialysis Refused BP Diastolic BP Location Tested BP Systolic BP Type Fetus Heart Rate Present Fetus Movement Comments Flowsheet Date 08/01/2020 Collado Score Blood Edema Fundus Height Fundus Units Glucose Ketones Leukocytes Nitrite Labor Signs Protein Cervic Dilation Cervic Effacement Cervic Station Type Weight in lbs Pre/Post Dialysis Refused BP Diastolic BP Location Tested BP Systolic BP Type Fetus Heart Rate Present Fetus Movement Comments Flowsheet Date 08/01/2020 Collado Score Blood Edema Fundus Height Fundus Units Glucose Ketones Leukocytes Nitrite Labor Signs Protein Cervic Dilation Cervic Effacement Cervic Station trace 39 trace Type Weight in lbs Pre/Post Dialysis Refused Weight 274.944808524623 BP Diastolic BP Location Tested BP Systolic BP Type 77 130 Fetus Heart Rate Present A 146 Fetus Movement A Yes Comments Levo was switched to 262 by squilgeer. Doing well. Occasional contractions. Flu shot done. Still has not had tdap. Encouraged her to get the vaccine. Labor precautions. GBS positive in urine. Antibiotics in labor. Pt states growth u/s with mfm on 2-15 and efw was 7-11. U/S report located. EFW 97%.Fundal height is greater than dates. F/U @ 38 weeks and I would also like to do a 2 hour gtt. Pt will do on Wednesday @ 0930. Cervix ft. Flowsheet Date 08/05/2020 Collado Score Blood Edema Fundus Height Fundus Units Glucose Ketones Leukocytes Nitrite Labor Signs Protein Cervic Dilation Cervic Effacement Cervic Station Type Weight in lbs Pre/Post Dialysis Refused BP Diastolic BP Location Tested BP Systolic BP Type Fetus Heart Rate Present Fetus Movement Comments Flowsheet Date 08/08/2020 Collado Score Blood Edema Fundus Height Fundus Units Glucose Ketones Leukocytes Nitrite Labor Signs Protein Cervic Dilation Cervic Effacement Cervic Station Type Weight in lbs Pre/Post Dialysis Refused BP Diastolic BP Location Tested BP Systolic BP Type Fetus Heart Rate Present Fetus Movement Comments Flowsheet Date 08/08/2020 Collado Score Blood Edema Fundus Height Fundus Units Glucose Ketones Leukocytes Nitrite Labor Signs Protein Cervic Dilation Cervic Effacement Cervic Station Type Weight in lbs Pre/Post Dialysis Refused BP Diastolic BP Location Tested BP Systolic BP Type Fetus Heart Rate Present Fetus Movement Comments Flowsheet Date 08/12/2020 Collado Score Blood Edema Fundus Height Fundus Units Glucose Ketones Leukocytes Nitrite Labor Signs Protein Cervic Dilation Cervic Effacement Cervic Station Type Weight in lbs Pre/Post Dialysis Refused BP Diastolic BP Location Tested BP Systolic BP Type Fetus Heart Rate Present Fetus Movement Comments Flowsheet Date 08/15/2020 Collado Score Blood Edema Fundus Height Fundus Units Glucose Ketones Leukocytes Nitrite Labor Signs Protein Cervic Dilation Cervic Effacement Cervic Station Type Weight in lbs Pre/Post Dialysis Refused BP Diastolic BP Location Tested BP Systolic BP Type Fetus Heart Rate Present Fetus Movement Comments Flowsheet Date 08/15/2020 Collado Score Blood Edema Fundus Height Fundus Units Glucose Ketones Leukocytes Nitrite Labor Signs Protein Cervic Dilation Cervic Effacement Cervic Station Type Weight in lbs Pre/Post Dialysis Refused BP Diastolic BP Location Tested BP Systolic BP Type Fetus Heart Rate Present Fetus Movement Comments Flowsheet Date 08/15/2020 Collado Score Blood Edema Fundus Height Fundus Units Glucose Ketones Leukocytes Nitrite Labor Signs Protein Cervic Dilation Cervic Effacement Cervic Station 38 trace 1cm 30% Type Weight in lbs Pre/Post Dialysis Refused Weight 279.220384989660 BP Diastolic BP Location Tested BP Systolic BP Type 76 R arm 121 sitting Fetus Heart Rate Present A 140 Fetus Movement A Yes Comments Flowsheet Date 08/19/2020 Collado Score Blood Edema Fundus Height Fundus Units Glucose Ketones Leukocytes Nitrite Labor Signs Protein Cervic Dilation Cervic Effacement Cervic Station Type Weight in lbs Pre/Post Dialysis Refused BP Diastolic BP Location Tested BP Systolic BP Type Fetus Heart Rate Present Fetus Movement Comments Menstrual History Last Menstrual Date Menses Monthly On Bcp Conception Prior Menses Frequency Hcg Plus Date Menarche Onset Age 0611/06/2019 Genetic Screening And Infection History Question Response Note Mental Retardation/Autism false Patient's Age Will Be 35 Years Or Older At Estim ated Date of Delivery false Thalassemia (Telugu, Spanish, Mediterranean, Or Background): MCV < 80 false Neural Tube Defect (Meningomyelocele, Spina Bifi da, Or Anencephaly) false Congenital Heart Defect false Down Syndrome false Ole-Sachs (eg, Faith, Cajun, Cay[place] Islander-Kittitian) f alse Irina Disease false Sickle Cell Disease Or Trait () false Hemophilia Or Other Blood Disorders false Muscular Dystrophy false Cystic Fibrosis false Cheatham's Chorea false Intellectual Disability/Autism false If Yes, Was Person Tested For Fragile X? false Other Inherited Genetic Or Chromosomal Disorder false Maternal Metabolic Disorder (eg, Type 1 Diabetes , PKU) false Patient Or Baby's Father Had A Child With Defects Not Listed Above false Recurrent Loss, Or A Stillbirth false Medications (including Suppl ements, Vitamins, Herbs, OTC Drugs), Illicit/Recreational Drugs, Alcohol false If Yes, Agent(s) And Strength/Dosage false Any Other Genetic History false Live With Someone With TB Or Exposed To TB false Patient Or Partner Has History Of Genital Herpes false Rash Or Viral Illness Since Last Menstrual Perio d false History Of STD, Gonorrhea, Chlamydia, HPV, Syphi lis false Other Infection History false History of HIV false History of Hepatitis false Prior GBS-infected child false Hemoglobinopathy Or Carrier false Other Structural Defect false Recent Travel History Outside of Country false Delivery Information Delivery Date Delivery Type Labor Anesthesia Weeks Gestation Incision Type Labor Labor Length Hrs Delivered By Post Complications Tubal Sterilization Discharge Date Comments 1 Induce d Regional-Ep idural 39.2 Low Transvers e false Rod Larson MD Maternal Obesity & Gbs+ Discharge Information Feeding Method Contraceptive Method Maternal HG B and HCT Levels Breast Ob Episode Information Episode Created Date Number of Fetuses Patient Bloodtype Patient rh Status Prepregnancy Weight lbs Domestic Partner Domestic Partner Phone Father Name Construction Estimator Status 09/09/19 24 1 O Positive CLOSED Fetus Data First Name Last Name Admitted to NICU Weight (g) Sex Living Outcome Pediatric Complications Fetus ID Race Codes Race Delivery Type 4410.04 822 F true Full Term macrosomia 61478 Repeat Problems Problem Notes Level II US & consult 01/11 1: 00P [facility] complete anatomy, 01/31/24 1pm complete anatomy: 02/27 1:00 US only Continue synthroid, goal level of <2.5 and FT4 normal range, repeat TSH panel next week with endo, weekly 8 point BPP at 36wks, serial growth u/s Problem Name Start Date End Date Resolution Snomed Code Not e Hypothyroidism 34595157 follo ws with endocrine, levothyroxine 250mcg Past history of section 087994061 FTP, ajay ires tolac Salpingo-oophorectomy 03999556 8 h/o LSO for large ovarian cyst Crohn's disease 23360901 on c imzia Ivan Calculation Initial Ivan Date Initial Exam Date Initial Exam Provider Initial Ultrasound Date Last Menstrual Period Date Ultra Sound Weeks Gestation 03/09/2024 09/09/2023 07/14/2023 5 Eighteen To Twenty Week Ivan Update Ultra Sound Date Fundal Height At Umbil Quickening Date Ultra Sound Latest Weeks Gestation Final Ivan Confirmed By Final Ivan Confirmed Date Final Ivan Date Ultra Sound Latest Days Gestation 0 [email or web address] 09/09/2023 03/09/20 24 0 Pre-alba Flowsheet Flowsheet Date 08/27/2023 Collado Score Blood Edema Fundus Height Fundus Units Glucose Ketones Leukocytes Nitrite Labor Signs Protein Cervic Dilation Cervic Effacement Cervic Station 12 Type Weight in lbs Pre/Post Dialysis Refused BP Diastolic BP Location Tested BP Systolic BP Type Fetus Heart Rate Present A 171 Fetus Movement Comments Patient presents to [facility] care. thus far uncomplicated, overall doing well. Hx of crohn's disease on cimzia, no recent flares. Followed by endocrinology for hypothyroidism, will monitor closely in . Stable currently on 250mcg synthroid. Hx of c section in G1 for failure to progress. Briefly discussed delivery route for this , patient desires TOLAC. NT/NB wnl today though technically difficult. NIPT desired, ordered today with new OB labs. RTC 4 weeks for routine care. Flowsheet Date 09/27/2023 Collado Score Blood Edema Fundus Height Fundus Units Glucose Ketones Leukocytes Nitrite Labor Signs Protein Cervic Dilation Cervic Effacement Cervic Station none 16 none neg Type Weight in lbs Pre/Post Dialysis Refused Weight 259.243444994800 BP Diastolic BP Location Tested BP Systolic BP Type 60 110 Fetus Heart Rate Present A 155 Fetus Movement A Yes Comments No cramping, bleeding, or na usea. Good movement. Having some back pain, possibly MSK. Improved with tylenol. Discussed heat/ice. No improvement with lidocaine. Discussed flexeril if worsens. LR female NIPT! discussed anatomy US for next visit. Flowsheet Date 10/29/2023 Collado Score Blood Edema Fundus Height Fundus Units Glucose Ketones Leukocytes Nitrite Labor Signs Protein Cervic Dilation Cervic Effacement Cervic Station Type Weight in lbs Pre/Post Dialysis Refused BP Diastolic BP Location Tested BP Systolic BP Type Fetus Heart Rate Present Fetus Movement Comments Flowsheet Date 10/29/2023 Collado Score Blood Edema Fundus Height Fundus Units Glucose Ketones Leukocytes Nitrite Labor Signs Protein Cervic Dilation Cervic Effacement Cervic Station Type Weight in lbs Pre/Post Dialysis Refused Weight 257.786724286877 BP Diastolic BP Location Tested BP Systolic BP Type 70 108 Fetus Heart Rate Present A 140 Fetus Movement A Yes Comments Good movement. No cram ping or bleeding. Back pain imrpoved. Has URI, discussed symptomatic treatment. Anatomy incomplete, repeat in 4 weeks. EFW 64%, normal RITA. RTC 4 weeks. Will repeat TSH and perform GCT at that time. Flowsheet Date 11/29/2023 Collado Score Blood Edema Fundus Height Fundus Units Glucose Ketones Leukocytes Nitrite Labor Signs Protein Cervic Dilation Cervic Effacement Cervic Station Type Weight in lbs Pre/Post Dialysis Refused Weight 259.090996983884 BP Diastolic BP Location Tested BP Systolic BP Type 71 L arm 122 sitting Fetus Heart Rate Present A 140 Fetus Movement A Yes Comments Doing well, baby active. No cramping or bleeding. Will do GCT and labs including TSH next Wednesday due to lab issue. Will repeat anatomy US next visit. RTC 4 weeks. Flowsheet Date 12/27/2023 Collado Score Blood Edema Fundus Height Fundus Units Glucose Ketones Leukocytes Nitrite Labor Signs Protein Cervic Dilation Cervic Effacement Cervic Station Type Weight in lbs Pre/Post Dialysis Refused BP Diastolic BP Location Tested BP Systolic BP Type Fetus Heart Rate Present Fetus Movement Comments Flowsheet Date 12/27/2023 Collado Score Blood Edema Fundus Height Fundus Units Glucose Ketones Leukocytes Nitrite Labor Signs Protein Cervic Dilation Cervic Effacement Cervic Station none trace Type Weight in lbs Pre/Post Dialysis Refused Weight 266.811506487386 BP Diastolic BP Location Tested BP Systolic BP Type 68 L arm 108 sitting Fetus Heart Rate Present A 132 Fetus Movement A Yes Comments Doing well, some fatigue. Go od movement. No cramping or bleeding. EFW 66%, breech, normal RITA. Still missing spine views and 3VV. Will schedule anatomy US with [facility] to evaluate final views. GCT and labs wnl last visit. Needs new appointment with endocrinology, patient to schedule. RTC 2 weeks. Flowsheet Date 01/10/2024 Collado Score Blood Edema Fundus Height Fundus Units Glucose Ketones Leukocytes Nitrite Labor Signs Protein Cervic Dilation Cervic Effacement Cervic Station Type Weight in lbs Pre/Post Dialysis Refused Weight 272.333240327886 BP Diastolic BP Location Tested BP Systolic BP Type 69 103 Fetus Heart Rate Present A 155 Fetus Movement A Yes Comments Good movement. No cram ping or bleeding. Scheduled with [facility] for Wednesday to complete anatomy. Needs tdap. Discussed preadmission. Has appointment scheduled with Endocrinology. RTC 2 weeks. Flowsheet Date 01/24/2024 Collado Score Blood Edema Fundus Height Fundus Units Glucose Ketones Leukocytes Nitrite Labor Signs Protein Cervic Dilation Cervic Effacement Cervic Station Type Weight in lbs Pre/Post Dialysis Refused Weight 274.865559750332 BP Diastolic BP Location Tested BP Systolic BP Type 75 115 Fetus Heart Rate Present A 145 Fetus Movement A Yes Comments Good movement. No cram ping or bleeding. Some increased pelvic pressure. Received tdap. Scheduled preadmission. Meeting with endocrine next week. Cephalic on [facility] US. Will plan for weekly BPPs starting at 36 weeks. RTC 2 weeks. Flowsheet Date 02/08/2024 Collado Score Blood Edema Fundus Height Fundus Units Glucose Ketones Leukocytes Nitrite Labor Signs Protein Cervic Dilation Cervic Effacement Cervic Station 1cm 50% -3 Type Weight in lbs Pre/Post Dialysis Refused Weight 279.517188711651 BP Diastolic BP Location Tested BP Systolic BP Type 74 116 Fetus Heart Rate Present A 145 Fetus Movement A Yes Comments Doing well, baby active. Mario e cramping. No LOF or VB. Will schedule testing weekly until delivery for BMI. Discussed awaiting spontaneous labor vs induction/c section if not delivered by due date. Would be good boone bulb candidate given SVE today. RTC 1 week. Flowsheet Date 02/21/2024 Collado Score Blood Edema Fundus Height Fundus Units Glucose Ketones Leukocytes Nitrite Labor Signs Protein Cervic Dilation Cervic Effacement Cervic Station Type Weight in lbs Pre/Post Dialysis Refused BP Diastolic BP Location Tested BP Systolic BP Type Fetus Heart Rate Present Fetus Movement Comments Flowsheet Date 02/21/2024 Collado Score Blood Edema Fundus Height Fundus Units Glucose Ketones Leukocytes Nitrite Labor Signs Protein Cervic Dilation Cervic Effacement Cervic Station Type Weight in lbs Pre/Post Dialysis Refused BP Diastolic BP Location Tested BP Systolic BP Type Fetus Heart Rate Present Fetus Movement Comments Flowsheet Date 02/21/2024 Collado Score Blood Edema Fundus Height Fundus Units Glucose Ketones Leukocytes Nitrite Labor Signs Protein Cervic Dilation Cervic Effacement Cervic Station neg none none trace Type Weight in lbs Pre/Post Dialysis Refused 283.688036417550 BP Diastolic BP Location Tested BP Systolic BP Type 71 L arm 114 sitting Fetus Heart Rate Present A 140 Fetus Movement A Yes Comments Patient c/o of Tre Moody and lower back pain. BPP 10/10. GBS negative. Flowsheet Date 02/28/2024 Collado Score Blood Edema Fundus Height Fundus Units Glucose Ketones Leukocytes Nitrite Labor Signs Protein Cervic Dilation Cervic Effacement Cervic Station Type Weight in lbs Pre/Post Dialysis Refused BP Diastolic BP Location Tested BP Systolic BP Type Fetus Heart Rate Present Fetus Movement Comments Flowsheet Date 02/28/2024 Collado Score Blood Edema Fundus Height Fundus Units Glucose Ketones Leukocytes Nitrite Labor Signs Protein Cervic Dilation Cervic Effacement Cervic Station Type Weight in lbs Pre/Post Dialysis Refused BP Diastolic BP Location Tested BP Systolic BP Type Fetus Heart Rate Present Fetus Movement Comments Flowsheet Date 02/28/2024 Collado Score Blood Edema Fundus Height Fundus Units Glucose Ketones Leukocytes Nitrite Labor Signs Protein Cervic Dilation Cervic Effacement Cervic Station neg trace none trace Type Weight in lbs Pre/Post Dialysis Refused Weight 285.247475949837 BP Diastolic BP Location Tested BP Systolic BP Type 70 L arm 119 sitting Fetus Heart Rate Present A Present Fetus Movement A Yes Comments Doing well, baby active. Int ermittent contractions. No LOF or VB. BPP 10/. Labor precautions reviewed. RTC 1 week. Will discuss plan for induction vs cs at that time. Flowsheet Date 03/06/2024 Collado Score Blood Edema Fundus Height Fundus Units Glucose Ketones Leukocytes Nitrite Labor Signs Protein Cervic Dilation Cervic Effacement Cervic Station Type Weight in lbs Pre/Post Dialysis Refused BP Diastolic BP Location Tested BP Systolic BP Type Fetus Heart Rate Present Fetus Movement Comments Flowsheet Date 03/06/2024 Collado Score Blood Edema Fundus Height Fundus Units Glucose Ketones Leukocytes Nitrite Labor Signs Protein Cervic Dilation Cervic Effacement Cervic Station Type Weight in lbs Pre/Post Dialysis Refused BP Diastolic BP Location Tested BP Systolic BP Type Fetus Heart Rate Present Fetus Movement Comments Flowsheet Date 03/06/2024 Collado Score Blood Edema Fundus Height Fundus Units Glucose Ketones Leukocytes Nitrite Labor Signs Protein Cervic Dilation Cervic Effacement Cervic Station neg none none trace Type Weight in lbs Pre/Post Dialysis Refused Weight 286.998658142609 BP Diastolic BP Location Tested BP Systolic BP Type 71 L arm 105 sitting Fetus Heart Rate Present A 140 Fetus Movement A Yes Comments Patient c/o of swelling in t he hands and some cramping. No strong contractions, LOF or VB. Good movement. BPP 10. EFW 4549g, 98% with AC >99% and HC 99%. Discussed that with suspected LGA fetus, likely lower chance of success with TOLAC. Lst c section indication was failure to descend with a 9lb baby. Risks and benefits of TOLAC vs c section discussed with patient, undecided on how she would like to proceed. Will discuss with partner and call with decision. Menstrual History Last Menstrual Date Menses Monthly On Bcp Conception Prior Menses Frequency Hcg Plus Date Menarche Onset Age Genetic Screening And Infection History Question Response Note Mental Retardation/Autism false Patient's Age Will Be 35 Years Or Older At Estim ated Date of Delivery false Thalassemia (Telugu, Spanish, Mediterranean, Or Background): MCV < 80 false Neural Tube Defect (Meningomyelocele, Spina Bifi da, Or Anencephaly) false Congenital Heart Defect false Down Syndrome false Ole-Sachs (eg, Faith, Cajun, Cayman Islander-Kittitian) f alse Irina Disease false Sickle Cell Disease Or Trait () false Hemophilia Or Other Blood Disorders false Muscular Dystrophy false Cystic Fibrosis false Cheatham's Chorea false Intellectual Disability/Autism false If Yes, Was Person Tested For Fragile X? false Other Inherited Genetic Or Chromosomal Disorder false Maternal Metabolic Disorder (eg, Type 1 Diabetes , PKU) false Patient Or Baby's Father Had A Child With Defects Not Listed Above false Recurrent Loss, Or A Stillbirth false Medications (including Suppl ements, Vitamins, Herbs, OTC Drugs), Illicit/Recreational Drugs, Alcohol false If Yes, Agent(s) And Strength/Dosage false Any Other Genetic History false Live With Someone With TB Or Exposed To TB false Patient Or Partner Has History Of Genital Herpes false Rash Or Viral Illness Since Last Menstrual Perio d false History Of STD, Gonorrhea, Chlamydia, HPV, Syphi lis false Other Infection History false History of HIV false History of Hepatitis false Prior GBS-infected child false Hemoglobinopathy Or Carrier false Other Structural Defect false Recent Travel History Outside of Country false Delivery Information Delivery Date Delivery Type Labor Anesthesia Weeks Gestation Incision Type Labor Labor Length Hrs Delivered By Post Complications Tubal Sterilization Discharge Date Comments 4 None [facility] 39.6 Low Transvers e false Donell Barksdale MD Crohn's disease,H jillothyisai dism,Past history of section,S alpingo-o ophorecto my Discharge Information Feeding Method Contraceptive Method Maternal HG B and HCT Levels
[2024-07-31 21:16] LABS: BEDSIDEPREGUCG Negative (Negative)
--- OUTSIDE RECORDS SUMMARY | 2024-07-31 22:42 | XMS_ITS ---
Author Organization [facility] Address [address], [address] [address] Phone Care Team Providers Care Director Of Market Research Name Role Phone Mila Curtis MD Primary Care Provider + Brittany Tamayo APN, AUTOMOBILE ASSEMBLY SUPERVISOR Unavailable Sofia Gonzalez Pinky PAC Unavailable [phone] Leslie Saenz MD Unavailable [facility] Status:Enrolled (Active) Start date:07/05/2024 Enrollment date:07/05/2024 Related social drivers of health:Intimate Partner Violence, Social Connections, Alcohol Use, Financial Resource Strain, Depression, Stress, Physical Activity, Food Insecurity, Transportation Needs, Housing Stability, Utilities Continued Care and Services Coordination
--- OUTSIDE RECORDS SUMMARY | 2024-07-31 22:42 | XMS_ITS | Clinical Summary ---
Author Organization [facility] Address [address] [place] [address] Care Team Providers Care Second Helper Name Role Phone Mila Curtis MD Primary Care Provider Source Comments [facility],non-owned Affiliates and Associated Physician Practices is amultiple site organization consisting of ambulatory clinics and hospital sitesin [place], [place], [place] and [place]. This disclosure is being madepursuant to the Care Everywhere program and may not contain all information available regarding this patient. Last updated 18.[facility] [employer] Allergies No known active allergies Medications * [...] Medicine recommendations: 1. Instructed to pick up truck driver a prescription for Diclegis 1. If no significant improvement then can discontinue the use of the iron supplement and the vitamin 1. Patient instructed to notify our office if she discontinues her iron and as she should then substitute with folic acid supplementation Rash and nonspecific skin eruption 03/13/2020 Assessment & Plan (06/17/2020 12:32 PM FLOOR RUNNER): Improved without flare. Previously diagnosed as eczema [...] in the insufficient range on last assessment. [facility] recommendations: 1. encouraged to take vitamin D supplementation Crohn's disease involving stomach 02/02/2020 Overview (03/31/2022): Added automatically from request for surgery [id number] Maternal Crohn's disease affecting 04/2020 Overview (01/16/2020): On Humira Assessment & Plan (06/17/2020 1:01 PM FLOOR RUNNER): Currently asymptomatic-- has missed two doses of [...] Report any symptoms of a flare to Manager Of Corporate Communications promptly. Assessment & Plan (05/08/2020 12:42 PM FLOOR RUNNER): Currently asymptomatic. Compliant with Humira. Missed GI [...] levothyroxine 250mcg per day per Dr. Saenz, vinyl welder and fabricator. [facility] [place] [place] [facility] [place]. Saenz on 05/20/20 Assessment & Plan (06/17/2020 3:41 PM FLOOR RUNNER): 06/05/20 TSH: 0.53, continue levothyroxine 250mcg per day per Dr. Saenz, vinyl welder and fabricator. LGA growth per preliminary report today. Maternal Medicine recommendations: 1. Management and adjustment of levothyroxine now per vinyl welder and fabricator, Dr. Saenz, has follow up scheduled for 06/24/20. 2. Reminded of importance of taking on an empty stomach, at least 30-60 minutes before food. 3. Serial growth ultrasounds. 4. At risk for preeclampsia, continue LD ASA, reviewed symptoms again today and to report promptly to Manager Of Corporate Communications if they occur. Assessment & Plan (05/08/2020 12:45 PM FLOOR RUNNER): Has been on the current dose of [...] needed Assessment & Plan (08/10/2016 5:00 PM FLOOR RUNNER): Hypothyroidism; improved clinically; better medication adherence 1. Orders Placed This Encounter Procedures TSH T4 TOTAL ANTI THYROID ANTIBODY PANEL 2. Obtain serum biochemistries at local laboratory following today's office appointment and fax results to Dr. Jeff Begum at [phone] (laboratory requisition given). 3. Outpatient Prescriptions Marked [...] 4.8 Assessment & Plan (06/17/2020 12:35 PM FLOOR RUNNER): 13lb weight gain noted thus far. LGA [...] report. Assessment & Plan (05/08/2020 12:43 PM FLOOR RUNNER): 2lb net weight gain noted thus far. [...] age to complete this topic Care Teams Second Helper Relationship Specialty Start Date End Date Mila Curtis MD [address] [place] [address] PCP - General Family Medicine 02/28/15
--- OUTSIDE RECORDS SUMMARY | 2024-07-31 22:42 | XMS_ITS | Referral Summary ---
Author Organization [facility] Address [address] [place] [address] Care Team Providers Care Ethernet Network Architect Name Role Phone Mila Curtis MD Primary Care Provider + Encounters Date Type Department Care Team Description 06/14/2024 2:30 PM ROLL UP HELPER Office Visit [facility] [address] [place] [address] [place] [id number] Terra Betancur MD Crohn's disease involving stomach (HCC) (Primary Dx) 05/18/2024 Orders Only [facility] [address] [place] [address] [place] [address] Dee Golden RN Crohn's disease involving stomach (HCC) (Primary Dx); Routine health maintenance; High risk medications (not anticoagulants) long-term use from Last 3 Months Allergies No known active allergies Medications levothyroxine (SYNTHROID) 100 mcg tablet 1 tablet (100 mcg total) hat blocking machine operator before breakfast 2 Active multivitamin capsule Take [...] 1 tablet (150 mcg total) by mouth hat blocking machine operator before breakfast Active ferrous gluconate 324 mg [...] on file Legal Sex Female 7:10 PM ROLL UP HELPER Gender Identity Not on file Sexual Orientation Not on file Last Filed Vital Signs Vital Sign Reading Time Taken Comments Blood Pressure 110/72 06/14/2024 2:29 PM ROLL UP HELPER Pulse 66 06/14/2024 2:29 PM ROLL UP HELPER Temperature 36.8 C (98.3 F) 06/14/2024 2:29 PM ROLL UP HELPER Respiratory Rate 16 04/13/2023 11:25 AM ROLL UP HELPER Oxygen Saturation 97% 06/14/2024 2:29 PM ROLL UP HELPER Inhaled Oxygen Concentration - - Weight 119.7 kg (264 lb) 06/14/2024 2:29 PM ROLL UP HELPER Height 170.2 cm (5' 7 ) 06/14/2024 2:29 PM ROLL UP HELPER Body Mass Index 41.35 06/14/2024 2:29 PM ROLL UP HELPER Plan of Treatment Not on file Insurance [facility] Member Subscriber Plan / Payer (Ef fective 2020-Present) Name:Silvia Kern Relation to Subscriber:Self Name:Silvia Kern Payer ID:[id number] (NAIC) Type:MEDICAID RISK OTHER Address: [place] [id number] [facility] Advance Directives For more information, please contact: [phone] * Full Code (Latest Code Status on File) Date Activated Date Inactivated Comments 02/20/2022 9:32 AM 02/20/2022 4:23 PM Care Teams Ethernet Network Architect Relationship Specialty Start Date End Date Mila Curtis MD [address] [address] PCP - General Family Medicine 10/21/21
--- OUTSIDE RECORDS SUMMARY | 2024-07-31 22:42 | XMS_ITS | Clinical Summary ---
Author Organization [facility] Address [address] [place] [address] Care Team Providers Care Bowl Attendant Name Role Phone Mila Curtis MD Primary Care Provider + Allergies No known active allergies Medications levothyroxine (SYNTHROID) 100 mcg tablet 1 tablet (100 mcg total) metal handler before breakfast 2 Active multivitamin capsule Take [...] 1 tablet (150 mcg total) by mouth metal handler before breakfast Active ferrous gluconate 324 mg [...] Department Care Team Description 06/14/2024 2:30 PM COMPOSITION FLOOR SETTER Office Visit [facility] [address] [place] [address] [address] [place] [address] [place] [address] Terra Betancur MD Crohn's disease involving stomach (HCC) (Primary Dx) 05/18/2024 Orders Only [facility] [address] [place] [address] [address] [place] [address] [place] [address] October, Dee David RN Crohn's disease involving [...] on file Legal Sex Female 7:10 PM COMPOSITION FLOOR SETTER Gender Identity Not on file Sexual Orientation Not on file Obstetrics History Last Filed Vital Signs Vital Sign Reading Time Taken Comments Blood Pressure 110/72 06/14/2024 2:29 PM COMPOSITION FLOOR SETTER Pulse 66 06/14/2024 2:29 PM COMPOSITION FLOOR SETTER Temperature 36.8 C (98.3 F) 06/14/2024 2:29 PM COMPOSITION FLOOR SETTER Respiratory Rate 16 04/13/2023 11:25 AM COMPOSITION FLOOR SETTER Oxygen Saturation 97% 06/14/2024 2:29 PM COMPOSITION FLOOR SETTER Inhaled Oxygen Concentration - - Weight 119.7 kg (264 lb) 06/14/2024 2:29 PM COMPOSITION FLOOR SETTER Height 170.2 cm (5' 7 ) 06/14/2024 2:29 PM COMPOSITION FLOOR SETTER Body Mass Index 41.35 06/14/2024 2:29 PM COMPOSITION FLOOR SETTER Plan of Treatment Health Maintenance Due Date [...] , 2001, 2001, Additional history exists Insurance [facility] Advance Directives For more information, please contact: [phone] * Full Code (Latest Code Status on File) Date Activated Date Inactivated Comments 02/20/2022 9:32 AM 02/20/2022 4:23 PM Care Teams Bowl Attendant Relationship Specialty Start Date End Date Mila Curtis MD [address] [address] PCP - General Family Medicine 10/21/21
--- OUTSIDE RECORDS SUMMARY | 2024-07-31 22:42 | XMS_ITS | Patient Health Summary ---
Author Organization [facility] Address [address] [place] [address] Care Team Providers Care Marble Worker Name Role Phone Mila Curtis MD Primary Care Provider [phone] Note from [facility],non-owned Affiliates and Associated Physician Practices is amultiple site organization consisting of ambulatory clinics and hospital sitesin [place], [place], [place] and [place]. This disclosure is being madepursuant to the Care Everywhere program and may not contain all information available regarding this patient. Last updated 18.[facility] Allergies No known active allergies Medications * [...] NOTE(Performed 03/11/2022) * PERIPHERAL BLOCK(Performed 03/11/2022) * CO EXPLORATORY OF ABDOMEN(Performed 03/11/2022) Performed for Diagnosis [...] (HCC) * SONOGRAM - COMPLETE(Performed 01/16/2020) * CO LIVER ELASTOGRAPHY(Performed 01/09/2019) Performed for Elevated liver [...] PM CDT Narrative 01/31/2024 2:08 PM CDT [facility] [place] PHONE: FAX: Pat. Name: SILVIA KERN Nissa Dougherty. No: [id number] Study Date: 01/31/2024 1:04pm , Age: 07 2000, 24 Pregnancies: 2, Para 1 Height: 67 in Weight: 266 lb LMP: Unknown GA by Base: 34w4d LEONILA: 03/09/2024 GA by US: 37w0d LEONILA: 02/21/2024 GA Selected: 34w4d (From [facility]) LEONILA: 03/09/2024 Referring MD: Mik Barriga MD Plug Drill Operator: Ellie Duran RDMS CPT4: 18067 BMI: 41.66 Hist/Ind: Incomplete anatomy Hypothyroidism Ovarian cystectomy Crohn's disease G1 LGA fetus MEASUREMENTS & AGE GROWTH EVALUATION Measurement GA Range Srce %for GA Ratios ----- ---- ------- BPD 9.1 cm 37w0d (16u3y-74q0v) Hadl BPD 96% FL/BPD 0.77 (0.71 - 0.87) HC 34.0 cm 39w0d (91w3w-27z6u) Hadl HC 97% FL/AC 0.21 (0.20 - 0.24) AC 33.8 cm 37w5d (81w2a-52w0o) Hadl AC >99 HC/AC 1.00 (0.94 - 1.13) FL 7.0 cm 36w0d (97k8b-36s0l) Hadl FL 77% CI 0.75 (0.70 - 0.86) HL 6.5 cm 37w5d (44f6p-96d3h) Paul HL >95 GA for sonogram 37w0d (90s6p-22m8y) Weight Estimate: based on (BPD,HC,AC,FL) [place]lock Weight: [...] <Electronic Signature> 01/31/2024 02:08pm Nissa Larson MD [facility] ORDERABLES * CARDIAC RHYTHM STRIP ORDER (03/16/2022 [...] - 15.6 gm/dL 03/13/2022 5:43 AM CDT [facility] Hematocrit 33.8(L) 35.9 - 45.5 % 03/13/2022 5:43 AM CDT [facility] MCV 82.8 80.7 - 98.3 fl 03/13/2022 5:43 AM CDT [facility] MCH 25.7(L) 26.7 - 34.0 pg 03/13/2022 5:43 AM CDT [facility] MCHC 31.1 30.8 - 35.9 gm/dL 03/13/2022 5:43 AM CDT [facility] Platelet Count 185 153 - 416 x10E9/L 03/13/2022 5:43 AM CDT [facility] RDW-CV 13.6 12.1 - 14.9 % 03/13/2022 5:43 AM CDT [facility] MPV 11.3 9.4 - 12.9 fl 03/13/2022 5:43 AM CDT [facility] Neutrophils % 54.1 44.0 - 73.0 % 03/13/2022 5:43 AM CDT [facility] Lymphocytes % 38.7 20.0 - 43.0 [...] - 1 % 03/13/2022 5:43 AM CDT [facility] Neutrophil Absolute 4.50 2.01 - 7.14 x10E9/L 03/13/2022 5:43 AM CDT [facility] Lymphocytes Absolute 3.21 1.07 - 3.94 x10E9/L 03/13/2022 5:43 AM CDT [facility] Monocytes Absolute 0.47 0.26 - 1.07 x10E9/L 03/13/2022 5:43 AM CDT [facility] Eosinophils Absolute 0.05 0 - 0.47 x10E9/L 03/13/2022 5:43 AM CDT [facility] Basophils Absolute 0.04 0 - 0.08 x10E9/L 03/13/2022 5:43 AM CDT [facility] Immature Granulocytes Absolute 0.03 0.00 - 0.06 x10E9/L 03/13/2022 5:43 AM CDT [facility] nRBC Auto 0 /100 WBC 03/13/2022 5:43 AM CDT [facility] Blood BLOOD SPECIMEN / Unknown Lab Venipuncture / Unknown 03/13/2022 5:08 AM CDT 03/13/2022 5:35 AM CDT Sil Fleming MD LAB - HEMATOLOGY O RDERABLES Performing Organization Address City/State/[facility] Co de Phone Number [facility] [address] [place] [address] * (ABNORMAL) BASIC METABOLIC PANEL (CALCIUM TOTAL) (03/13/2022 5:08 AM CDT) Only the most recent of2 resultswithin the time period is included. Glucose 81 70 - 105 mg/dL 03/13/2022 6:53 AM CDT [facility] Sodium 140 136 - 145 mmol/L 03/13/2022 6:53 AM CDT [facility] Potassium 3.9 3.5 - 5.1 mmol/L 03/13/2022 6:53 AM CDT [facility] Chloride 111(H) 98 - 107 mmol/L 03/13/2022 6:53 AM CDT [facility] CO2 22(L) 23 - 31 mmol/L 03/13/2022 6:53 AM CDT [facility] Calcium 8.4 8.4 - 10.4 mg/dL 03/13/2022 6:53 AM CDT [facility] Anion Gap 7(L) 8 - 18 mmol/L 03/13/2022 6:53 AM CDT [facility] BUN 10 7 - 18.7 mg/dL 03/13/2022 6:53 AM CDT [facility] Creatinine 0.72 0.57 - 1.11 mg/dL 03/13/2022 6:53 AM CDT [facility] eGFR by CKD-EPI >90 >=90 mL/min/1.7 3 m2 03/13/2022 6:53 AM CDT [facility] Blood BLOOD SPECIMEN / Unknown Lab Venipuncture / Unknown 03/13/2022 5:08 AM CDT 03/13/2022 5:36 AM CDT Sil Fleming MD LAB - CHEMISTRY OR DERABLES Performing Organization Address [facility] de Phone Number [facility] [address] [place] [address] * PHOSPHORUS BLOOD (03/13/2022 5:08 AM CDT) Only the most recent of2 resultswithin the time period is included. Phosphorus 3.7 2.3 - 4.7 mg/dL 03/13/2022 6:53 AM CDT [facility] Blood BLOOD SPECIMEN / Unknown Lab Venipuncture / Unknown 03/13/2022 5:08 AM CDT 03/13/2022 5:36 AM CDT Sil Fleming MD LAB - CHEMISTRY OR DERABLES Performing Organization Address [facility] de Phone Number [facility] [address] [place] [phone] * MAGNESIUM BLOOD (03/13/2022 5:08 AM CDT) Only the most recent of2 resultswithin the time period is included. Magnesium 1.9 1.6 - 2.6 mg/dL 03/13/2022 6:53 AM CDT [facility] Blood BLOOD SPECIMEN / Unknown Lab Venipuncture / Unknown 03/13/2022 5:08 AM CDT 03/13/2022 5:36 AM CDT Sil Fleming MD LAB - CHEMISTRY OR DERABLES [facility] [address] [phone] * PATHOLOGY TISSUE EXAM (STL) (03/11/2022 12:55 PM CDT) Case Report Surgical Pathology Report Case: [id number] Authorizing Provider: Sil Fleming MD Collected: 03/11/2022 12:55 PM Ordering Location: [facility] Received: 03/11/2022 12:59 PM Pathologist: Ronel Trinh MD Specimen: Fallopian Tube, left tube and ovary 10:58 AM CDT [facility] Final Diagnosis Ovary, left, 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 Operative procedure: left salpingo-oophorectomy . 10:58 AM T [facility] Intraoperative Consultation The frozen section diagnosis is as rendered below. 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 Fleming at [address] Trinh. 10:58 AM CDT [facility] Gross Description The requisition and specimen(s) [...] fluid. There is no solid component identified. Unmanned Equipment Operator sections are submitted as follows: A1-2 frozen section remnant of FS A1 and FS A2, A3-11 cystic lesion, A 12 fimbria, A13 fallopian tube, A14-18 additional sections of mass. WM 10:58 AM [facility] Microscopic Description Microscopic examination substantiates the above diagnosis. Permanent sections confirm the frozen section diagnosis. 10:58 AM [facility] Disclaimer All histochemical and/or immunohistochemical results are interpreted with controls that demonstrate appropriate staining reactions before reporting results. Note on use of immunocytochemistry reagents: This test was developed and its performance characteristic determined by [facility], Department of Laboratory Medicine. It has not [...] be interpreted with caution. 10:58 AM T [facility] Embedded Images 10:58 AM T [facility] Pathology/Cytolo gy FALLOPIAN TUBE PART / Unknown 03/11/2022 12:55 PM CDT 03/11/2022 12:59 PM CDT Comment:Pre-op diagnosis: Diagnosis unknown [R69] Sil Fleming MD LAB - PATHOLOGY/CY TOLOGY ORDERABLES [facility] [address] [place] [address] * ETT LINE PERFORMABLE (03/11/2022 12:23 PM CDT) Narrative Laura Orosco APRN-CRNA - 03/11/2022 12:23 PM CDT Laura Orosco APRN-CRNA 03/11/2022 12:35 PM Endotracheal Tube Placement: Patient Location: OR. Intubation Event Date/Time: 03/11/2022 12:23 PM Procedure: intubation ([id number]). Procedure Section: Sedation: under general anesthesia. Indications [...] See Separate Report 03/11/2022 11:02 AM CDT [facility] Urine URINE / Unknown 9:55 AM CDT Sil Fleming MD LAB - URINALYSIS O RDERABLES [facility] [address] [place] [address] * HCG URINE QUALITATIVE - POCT (IP) INTERFACED (03/11/2022 10:24 AM CDT) HCG Qual Urine Negative Negative 03/11/2022 10:30 AM CDT [facility] Urine URINE / Unknown 03/11/2022 1 0:24 AM CDT 03/11/2022 10:30 AM CDT Sil Fleming MD LAB - POINT OF CAR E ORDERABLES Performing Organization Address City/[facility]/ZIP Co de Phone Number [facility] [address] [place] [address] * BLOOD TYPE VERIFICATION (03/11/2022 10:20 AM CDT) ABO Rh O POS 03/11/2022 10:59 AM CDT [facility] Blood Bank BLOOD SPECIMEN / Unknown Venipuncture / Unknown 03/11/2022 10:20 AM CDT 03/11/2022 10:28 AM CDT Harvinder Pettit DO LAB - BLOOD BANK OR DERABLES Performing Organization Address [facility] Co de Phone Number [facility] [address] [place] [address] * TYPE + SCREEN PANEL (03/11/2022 10:13 AM CDT) ABO Rh O POS 03/11/2022 10:57 AM CDT [facility] Comment:No history; collect retype. Antibody Screen NEG 10:57 AM CDT [facility] Blood Bank BLOOD SPECIMEN / Unknown Venipuncture / Unknown 03/11/2022 10:13 AM CDT 03/11/2022 10:17 AM CDT Danielles Tatomikristin DO LAB - BLOOD BANK OR DERABLES Performing Organization Address City/[facility]/ZIP Co de Phone Number [facility] [address] [place] [address] * COMPREHENSIVE METABOLIC PANEL (03/06/2022 2:26 PM [...] 29 U/L [facility] Comment: Test Performed at: [facility] [address] [place] [address] KALI MORENO DO,MPH Blood BLOOD SPECIMEN / Unknown 03/06/2022 2:26 PM CDT 03/06/2022 2:30 PM CDT Sil Fleming MD LAB - CHEMISTRY OR DERABLES [facility] [address] [place] [address] * LAB RESULTS ORDER (03/06/2022) Only the [...] analytical performance characteristics have been determined by [employer]. It has not been cleared or approved by the FDA. This assay has been validated pursuant to the CLIA regulations and is used for clinical purposes. Test Performed at: [facility] [address] [address] BRIANDA POPE MD Blood BLOOD SPECIMEN / Unknown 02/17/2022 02/17/2022 2:36 PM CDT Sil Fleming MD LAB - SEROLOGY ORD ERABLES Performing Organization Address [facility] Phone Number [facility] [address] [place] [address] * CANCER ANTIGEN (CA) 19-9 (02/17/2022) CA 19-9 18 <34 U/mL [facility] Comment: This test was performed using the Siemens chemiluminescent method. Values obtained from different assay methods cannot be used interchangeably. CA 19-9 levels, regardless of value, should not be interpreted as absolute evidence of the presence or absence of disease. Test Performed at: [facility] [place] [address] [place] [address] KALI MORENO DO,MPH 02/17/2022 02/17/2022 2:3 6 PM CDT Sil Fleming MD LAB - CHEMISTRY OR DERABLES Performing Organization Address City/State/[facility] de Phone Number [facility] [id number] [place] [address] * CANCER ANTIGEN (CA)125 BLOOD (02/17/2022) [facility] CA 125 15 <35 U/mL [facility] Comment: This test was performed using the Siemens Chemiluminescent method. Values obtained from different assay methods cannot be used interchangeably. CA 125 levels, regardless of value, should not be interpreted as absolute evidence of the presence or absence of disease. Test Performed at: [facility] [address] [place] [address] KALI MORENO DO,MPH Blood BLOOD SPECIMEN / Unknown 02/17/2022 02/17/2022 2:36 PM CDT Sil Fleming MD LAB - CHEMISTRY OR DERABLES Performing Organization Address [facility] [place] [address] * ALPHA FETOPROTEIN BLOOD TUMOR MARKER (02/17/2022) [facility] Alpha-Fetoprotein Tumor Marker 1.3 ng/mL [facility] Comment: Reference Range: <6.1 The use of AFP as a tumor marker in females is not recommended. This test was performed using the [place] chemiluminescent method. Values obtained from different assay methods cannot be used interchangeably. AFP levels, regardless of value, should not be interpreted as absolute evidence of the presence or absence of disease. REPORT COMMENT: FASTING:NO COLLECTION REQUIREMENTS NOT MET. PATIENT ADVISED TO RETURN. Test Performed at: [facility] [address] [address] LAMONT LAMAR MD Blood BLOOD SPECIMEN / Unknown 02/17/2022 02/17/2022 2:36 PM CDT Sil Fleming MD LAB - CHEMISTRY OR DERABLES Performing Organization Address [facility] de Phone Number [address] [address] * LDH BLOOD (02/17/2022) [facility] LD-Total 159 100 - 200 U/L [facility] Comment: Test Performed at: [place] [address] KALI MORENO DO,MPH Blood BLOOD SPECIMEN / Unknown 02/17/2022 02/17/2022 2:36 PM CDT Sil Fleming MD LAB - CHEMISTRY OR DERABLES Performing Organization Address [facility] Co de Phone Number [facility] [phone] [place], [place] [phone] * CEA BLOOD (02/17/2022) Pathologist [facility] CEA 0.8 ng/mL [facility] Comment: Non-Smoker: <2.5 Smoker: <5.0 This test was performed using the Siemens chemiluminescent method. Values obtained from different assay methods cannot be used interchangeably. CEA levels, regardless of value, should not be interpreted as absolute evidence of the presence or absence of disease. Test Performed at: [place] [address] KALI MORENO DO,MPH 02/17/2022 02/17/2022 2:3 6 PM CDT Sil Fleming MD LAB - CHEMISTRY OR DERABLES Performing Organization Address [facility] de Phone Number [place] [phone] * (ABNORMAL) URINALYSIS W/MICROSCOPIC NO CULTURE (05/10/2020 2:29 PM DIESEL SERVICE APPRENTICE) Pathologist [facility] Color UA YELLOW YELLOW [facility] Appearance CLEAR CLEAR [facility] Specific [place] UA 1.006 1.001 - 1.035 [facility] pH [...] SEEN /LPF [facility] Comment: Test Performed at: [place] [address] KALI MORENO DO,MPH 05/10/2020 2:29 PM DIESEL SERVICE APPRENTICE 05/10/2020 2:32 PM DIESEL SERVICE APPRENTICE Ally Reddy APRN-ANKITA LAB - URINALYSI S ORDERABLES Performing Organization Address [facility] Co de Phone Number [address] [address] * CULTURE URINE (05/10/2020 2:29 PM DIESEL SERVICE APPRENTICE) Pathologist [facility] Culture [facility] Comment: CULTURE, URINE, ROUTINE Micro Number: [id number] Test Status: Final Specimen Source: URINE, CLEAN CATCH Specimen Quality: Adequate Result: Growth of mixed nicole was isolated, suggesting probable contamination. No further testing will be performed. If clinically indicated, recollection using a method to minimize contamination, with prompt transfer to Urine Culture Transport Tube, is recommended. REPORT COMMENT: FASTING:NO Test Performed at: [facility] [address] MOSES ARANGO MD 05/10/2020 2:29 PM DIESEL SERVICE APPRENTICE 05/10/2020 2:32 PM DIESEL SERVICE APPRENTICE Ally Reddy APRN-ANKITA LAB - MICROBIOL OGY ORDERABLES Performing Organization Address [facility] Co de Phone Number [place] [phone] * (ABNORMAL) TSH (05/10/2020 2:29 PM DIESEL SERVICE APPRENTICE) Only the most recent of3 resultswithin the time period is included. Pathologist [facility] TSH 9.51(H) mIU/L [facility] Comment: Reference Range 1-19 Years 0.50-4.30 Ranges First trimester 0.26-2.66 Second trimester 0.55-2.73 Third trimester 0.43-2.91 Test Performed at: [facility] [address] [place] [address] KALI MORENO DO,MPH 05/10/2020 2:29 PM DIESEL SERVICE APPRENTICE 05/10/2020 2:32 PM DIESEL SERVICE APPRENTICE Ally Reddy APRN-ANKITA LAB - CHEMISTRY ORDERABLES Performing Organization Address City/[facility]/ZIP Co de Phone Number [facility] [address] [place] [address] * T4 FREE (05/10/2020 2:29 PM DIESEL SERVICE APPRENTICE) Only the most recent of2 resultswithin the time period is included. Pathologist [facility] T4 Free 1.1 0.8 - 1.4 ng/dL [facility] Comment: Test Performed at: [facility] [employer] [address] [place] [address] KALI MORENO DO,MPH 05/10/2020 2:29 PM DIESEL SERVICE APPRENTICE 05/10/2020 2:32 PM DIESEL SERVICE APPRENTICE Ally Marcumjanes [facility] LAB - CHEMISTRY ORDERABLES Performing Organization Address [facility] Co de Phone Number [facility] [address] [place] [address] * HEMOGLOBIN A1C (02/13/2020 2:29 PM CDT) [facility] Hemoglobin A1c 4.8 4.2 - 5.6 % 02/13/2020 2:59 PM CDT [facility] Estimated Average Glucose 91 mg/dL 02/13/2020 2:59 PM CDT [facility] Blood BLOOD SPECIMEN / Unknown Venipuncture / Unknown 02/13/2020 2:29 PM CDT 02/13/2020 2:42 PM CDT Narrative [facility] - 02/13/2020 2:59 PM CDT The following cutoff levels are recommended by [place] [employer]. A1c > 6.5% : considered [...] - CHEMISTRY EZE POPE Performing Organization Address [facility] Co de Phone Number [facility] [address] [place], [place] [phone] * (ABNORMAL) VITAMIN D 25-HYDROXY (02/13/2020 2:29 PM CDT) Vitamin D, 25 Hydroxy 24.2(L) 30 - 100 ng/mL 02/13/2020 3:24 PM CDT [facility] Blood BLOOD SPECIMEN / Unknown Venipuncture / Unknown 02/13/2020 2:29 PM CDT 02/13/2020 2:41 PM CDT Narrative [facility] - 02/13/2020 3:24 PM CDT Vitamin D Status: Deficiency <20 ng/mL Insufficiency 20-30 ng/mL Sufficiency 30-100 ng/mL Toxicity >100 ng/mL Stacey Avila MD LAB - CHEMISTRY EZE POPE Performing Organization Address City/[facility]/ZIP Co de Phone Number [facility] [address] [place] [address] * VITAMIN B12 (02/13/2020 2:29 PM CDT) Vitamin B12 555 213 - 816 pg/mL 02/13/2020 3:54 PM CDT [facility] Blood BLOOD SPECIMEN / Unknown Venipuncture / Unknown 02/13/2020 2:29 PM CDT 02/13/2020 2:41 PM CDT Staecy Avila MD LAB - CHEMISTRY EZE POPE Performing Organization Address [facility] de Phone Number [facility] [address] [place] [address] * (ABNORMAL) IRON + TRANSFERRIN PANEL (02/13/2020 2:29 PM CDT) Pathologist [facility] Iron 46(L) 50 - 170 ug/dL 02/13/2020 3:07 PM CDT [facility] Transferrin 260 180 - 382 mg/dL 02/13/2020 3:07 PM CDT [facility] TIBC Calculated 325 240 - 450 ug/dL 02/13/2020 3:07 PM CDT [facility] Iron Saturation % 14(L) 20 - 50 % 02/13/2020 3:07 PM CDT [facility] Blood BLOOD SPECIMEN / Unknown Venipuncture / Unknown 02/13/2020 2:29 PM CDT 02/13/2020 2:41 PM CDT Stacey Avila MD LAB - CHEMISTRY EZE POPE Performing Organization Address [facility] de Phone Number [facility] [address] [place] [address] * FERRITIN (02/13/2020 2:29 PM CDT) [facility] Ferritin 20 5 - 204 ng/mL 02/13/2020 3:54 PM CDT [facility] Blood BLOOD SPECIMEN / Unknown Venipuncture / Unknown 02/13/2020 2:29 PM CDT 02/13/2020 2:41 PM CDT Stacey Avila MD LAB - CHEMISTRY EZE POPE Performing Organization Address [facility] Co de Phone Number [facility] [address] [place] [address] * GLUCOSE PROTEIN KETONE URINE - POINT OF CARE (02/13/2020 1:49 PM CDT) Only the most recent of2 resultswithin the time period is included. Pathologist [facility] Glucose UA neg Negative [facility] POCT TESTING Protein UA neg Negative [facility] PO[facility] TEST[facility] Ketone UA neg Negative [facility] PO[facility] TEST[facility] QC Verified Yes Yes [facility] POC T TESTING Urine URINE / Unknown 02/13/2020 1 :49 PM CDT Aria Rodriguez MD LAB - POINT OF CARE ORDERABLES [facility] POCT TESTING [address] [place] [address], [facility] [phone] * CO LIVER ELASTOGRAPHY (01/09/2019 2:52 PM CDT) Narrative [...] change as additional supporting data becomes available. [email or web address] Eduar Keane MD PROCEDURE/ MINOR SURGICAL ORDERABLES * T4 TOTAL (08/10/2016 1:54 PM DIESEL SERVICE APPRENTICE) Pathologist [facility] T4 Total 7.1 4.5 - 12.0 mcg/dL [facility] Comment: Test Performed at: [employer] [facility] [address] KALI MORENO DO,MPH Blood BLOOD SPECIMEN / Unknown 08/10/2016 1:54 PM DIESEL SERVICE APPRENTICE 08/10/2016 1:55 PM DIESEL SERVICE APPRENTICE Jeff Begum MD LAB - CHEMISTRY EZE POPE [facility] Organization Address City/State/[facility] Co de Phone Number [facility] [address] [place] [address] * (ABNORMAL) ANTI THYROID ANTIBODY PANEL (08/10/2016 1:53 PM DIESEL SERVICE APPRENTICE) Pathologist [facility] Thyroglobulin Antibody >1000(H) < or = 1 IU/mL [facility] Comment: Test Performed at: [id number] [place] [id number] KALI MORENO DO,MPH Thyroid Peroxidase TPO Antibody >900(H) <9 IU/mL [facility] Blood BLOOD SPECIMEN / Unknown 08/10/2016 1:53 PM DIESEL SERVICE APPRENTICE 08/10/2016 1:53 PM DIESEL SERVICE APPRENTICE Jeff Begum MD LAB - CHEMISTRY EZE POPE [facility] Organization Address City/State/ZIP Co de Phone Number [facility] [address] [place] [address] Care Teams Marble Worker Relationship Specialty Start Date End Date Mila Curtis MD [address] [place] [place] [address] PCP - General Family Medicine 02/28/15
--- OUTSIDE RECORDS SUMMARY | 2024-07-31 22:42 | XMS_ITS | Referral Summary ---
Author Organization [facility] Address [address] [address] Care Team Providers Care Sql Ssrs Developer Name Role Phone Mila Curtis MD Primary Care Provider [phone] Source Comments [facility] Affiliates and Associated Physician Practices is amultiple site organization consisting of ambulatory clinics and hospital sitesin [place], [place], [place] and [place]. This disclosure is being madepursuant to the Care Everywhere program and may not contain all information available regarding this patient. Last updated 18.[facility] Allergies No known active allergies Medications * [...] reassuring. Maternal Medicine recommendations: 1. Instructed to picker tender a prescription for Diclegis 1. If no significant improvement then can discontinue the use of the iron supplement and the vitamin 1. Patient instructed to notify our office if she discontinues her iron and as she should then substitute with folic acid supplementation Rash and nonspecific skin eruption 03/13/2020 Assessment & Plan (06/17/2020 12:32 PM OXYACETYLENE TORCH OPERATOR): Improved without flare. Previously diagnosed as eczema [...] in the insufficient range on last assessment. [facility] recommendations: 1. encouraged to take vitamin D supplementation Crohn's disease involving stomach 02/02/2020 Overview (03/31/2022): Added automatically from request for surgery [id number] Maternal Crohn's disease affecting 04/2020 Overview (01/16/2020): On Humira Assessment & Plan (06/17/2020 1:01 PM OXYACETYLENE TORCH OPERATOR): Currently asymptomatic-- has missed two doses of [...] Report any symptoms of a flare to Tape Cutter promptly. Assessment & Plan (05/08/2020 12:42 PM OXYACETYLENE TORCH OPERATOR): Currently asymptomatic. Compliant with Humira. Missed GI [...] levothyroxine 250mcg per day per Dr. Saenz, turkish rubber. [facility] [place] , Dr. Saenz on 05/20/20 Assessment & Plan (06/17/2020 3:41 PM OXYACETYLENE TORCH OPERATOR): 06/05/20 TSH: 0.53, continue levothyroxine 250mcg per day per Dr. Saenz, turkish rubber. LGA growth per preliminary report today. Maternal Medicine recommendations: 1. Management and adjustment of levothyroxine now per turkish rubber, Dr. Saenz, has follow up scheduled for 06/24/20. 2. Reminded of importance of taking on an empty stomach, at least 30-60 minutes before food. 3. Serial growth ultrasounds. 4. At risk for preeclampsia, continue LD ASA, reviewed symptoms again today and to report promptly to Tape Cutter if they occur. Assessment & Plan (05/08/2020 12:45 PM OXYACETYLENE TORCH OPERATOR): Has been on the current dose of [...] needed Assessment & Plan (08/10/2016 5:00 PM OXYACETYLENE TORCH OPERATOR): Hypothyroidism; improved clinically; better medication adherence 1. Orders Placed This Encounter Procedures TSH T4 TOTAL ANTI THYROID ANTIBODY PANEL 2. Obtain serum biochemistries at local laboratory following today's office appointment and fax results to Dr. Jeff Begum at [phone] (laboratory requisition given). 3. Outpatient Prescriptions Marked [...] 4.8 Assessment & Plan (06/17/2020 12:35 PM OXYACETYLENE TORCH OPERATOR): 13lb weight gain noted thus far. LGA [...] report. Assessment & Plan (05/08/2020 12:43 PM OXYACETYLENE TORCH OPERATOR): 2lb net weight gain noted thus far. [...] of Treatment Not on file Care Teams Sql Ssrs Developer Relationship Specialty Start Date End Date Mila Curtis MD [address] [place] [address] [place] [address] PCP - General Family Medicine 02/28/15
--- OUTSIDE RECORDS SUMMARY | 2024-07-31 22:42 | XMS_ITS | Clinical Summary ---
Author Organization [facility] Address [address] [address] Phone Care Team Providers Care Echocardiography Technologist Name Role Phone Mila Curtis MD Primary Care Provider + Brittany Tamayo APN, TILE INSPECTOR Unavailable Sofia Gonzalez Pinky PAC Unavailable [phone] Leslie Saenz MD Unavailable Allergies No known [...] Department Care Team Description 05/15/2024 11:30 AM DIRECTOR TRANSITION [facility] [address] [place] [address] Leslie Saenz MD Acquired hypothyroidism (Primary Dx) Discharge Disposition: Discharged to home or Selfcare 05/15/2024 [facility]phone [facility] [address] [place] [address] Leslie Saenz MD Results; Medication Management 05/15/2024 [...] Comments Blood Pressure 112/78 05/15/2024 11:05 AM DIRECTOR TRANSITION Pulse 108 05/15/2024 11:05 AM DIRECTOR TRANSITION Temperature 36.9 C (98.5 F) 05/15/2024 11:05 AM DIRECTOR TRANSITION Respiratory Rate 16 05/15/2024 11:0 5 AM DIRECTOR TRANSITION Oxygen Saturation 100% 05/15/2024 11: 05 AM DIRECTOR TRANSITION Inhaled Oxygen Concentration - - Weight 118.8 kg (261 lb 12.8 oz) 2023 11:05 AM DIRECTOR TRANSITION Height 170.2 cm (5' 7 ) 05/15/2024 11:0 5 AM DIRECTOR TRANSITION Body Mass Index 41 05/15/2024 11:05 AM DIRECTOR TRANSITION Plan of Treatment Upcoming Encounters Date Type Department Care Team (Late st Contact Info) Description 08/14/2024 11:30 AM CDT Office Visit [facility] [place] [address] [place] [address] Leslie Saenz MD [address] [address] Health Maintenance Due Date Last Done Comments [...] (T4) FREE Routine 05/15/2024 1 1:32 AM DIRECTOR TRANSITION Acquired hypothyroidism THYROID STIMULATING HORMONE (TSH) Routine 05/15/2024 11:32 AM DIRECTOR TRANSITION Acquired hypothyroidism HEPATITIS PANEL ACUTE (AHP) Routine 03/31/2018 12:54 PM CDT Crohn's disease involving stomach (HCC) from Last 3 Months or Most Recently Relevant to Health Maintenance Results * THYROXINE (T4) FREE (05/15/2024 11:32 AM DIRECTOR TRANSITION) T4 FREE 1.3 0.7 - 1.9 ng/dL 05/15/2024 12:39 PM DIRECTOR TRANSITION [facility] Blood Venipuncture / Unknown 05/15/2024 11:32 AM DIRECTOR TRANSITION 05/15/2024 11:44 AM DIRECTOR TRANSITION us Leslie Saenz MD CHEMISTRY ORDERABLES Final Resul t [facility] [address] [place] [address] * (ABNORMAL) THYROID STIMULATING HORMONE (TSH) (05/15/2024 11:32 AM DIRECTOR TRANSITION) TSH 0.012(L) 0.300 - 5.000 mIU/L 05/15/2024 12:39 PM DIRECTOR TRANSITION [facility] Blood Venipuncture / Unknown 05/15/2024 11:32 AM DIRECTOR TRANSITION 05/15/2024 11:44 AM DIRECTOR TRANSITION us Leslie Saenz MD CHEMISTRY ORDERABLES Final Resul t [facility] [address] [place] [address] * Hepatitis Panel Acute (AHP) (03/31/2018 12:54 PM CDT) HEPATITIS A IGM ANTIBODY NON DETECTED NON DETECTED 04/01/2018 3:35 AM CDT [facility] Comment: IGM Antibodies to HAV not detected. Does not exclude early acute or recovered HAV infection. HEP B CORE AB (IGM) NON DETECTED NON DETECTED 04/01/2018 3:35 AM CDT [facility] Comment: IGM anti-HBC not detected. Does not exclude the possibility of exposure to or infection with HBV. HEPATITIS B SURFACE ANTIGEN NON DETECTED NON DETECTED 04/01/2018 3:35 AM CDT [facility] Comment: A nonreactive test result does [...] 0.22 <1 S/CO 04/01/2018 3:35 AM CDT [facility] Comment: Signal/Cutoff ratio < 0.79 is Nondetected Signal/Cutoff ratio 0.80-0.99 is Grayzone Signal/Cutoff ratio > 0.99 is Detected Supplemental assays are recommended if signal/cutoff ratio is >/=1.00. Signal/cutoff ratio result >/= 5.00 is 97% predictive of positivity for recombinant immunoblot assay (RIBA) and will be reported to the [place] Department of Public Health as required. Blood specimen (specimen) Butterfly Puncture / Unknown 03/31/2018 12:54 PM CDT 03/31/2018 1:00 PM CDT us Saikiran Raghavapuram MD HEMATOLOGY ORDERABLES F inal Result [facility] [address] [place] [address], from Last 3 Months or Most Recently Relevant to Health Maintenance Insurance MEDICAID WORKMAN Care Teams Echocardiography Technologist Relationship Specialty Start Date End Date Mila Curtis MD [address] [place] [address] PCP - General Family Medicine 03/09/18 Brittany Tamayo, INTERACTIVE MARKETING STRATEGIST, TILE INSPECTOR [address] [place] [address] Mold Sprayer Advanced Practice Nurse 06/04/20 Sofia Gonzalez, JIGAR [address] [place] [address] Physician Energy Control Officer Physician Energy Control Officer 09/05/21 Leslie Saenz MD [address] [id number] Consulting Physician Endocrinology 01/30/22
[2024-07-31] MEDS: SODIUM CHLORIDE 0.9% IV 1,000 ML 999 ML IV CONT (22:54)
[2024-07-31] MEDS: diphenhydrAMINE HCl INJ 50 MG/ML VIAL 25 MG IV PUSH (22:54)
[2024-07-31] MEDS: ACETAMINOPHEN 500 MG TABLET 1000 MG PO (22:55)
[2024-07-31] MEDS: METOCLOPRAMIDE HCL INJ 10 MG/2 ML VIAL IV PUSH (22:55)
[2024-07-31 22:58] LABS: Basophils Percent Auto 0.4 % (0.2-1.2); Eosinophils Absolute Auto 0.1 K/mm3 (0-0.3); Eosinophils Percent Auto 1.6 % (0-4.4); Hematocrit 39.8 % (37.0-47.0); Hemoglobin 13.1 g/dL (12.0-15.0); Immature Granulocyte Absolute 0.01 K/mm3 (0.00-0.031); Immature Granulocyte Percent A 0.2 % (0-0.5); Lymphocytes Absolute Auto 1.86 K/mm3 (0.9-3.2); Lymphocytes Percent Auto 38.3 % (18.3-44.2); Mean Corpuscular HGB Conc 32.9 g/dl (32-36); Mean Corpuscular Hemoglobin 28.9 pg (26-34); Mean Corpuscular Volume 87.9 fl (80-100); Mean Platelet Volume 10.8 fl (7.4-10.4); Monocytes Absolute Auto 0.4 K/mm3 (0.1-0.6); Monocytes Percent Auto 8.2 % (2.6-8.5); Neutrophils Absolute Auto 2.5 K/mm3 (1.3-6.7); Neutrophils Percent Auto 51.3 % (45.5-73.1); Platelet Count Result 169 k/mm3 (150-375); Red Blood Count 4.53 M/mm3 (4.2-5.4); Red Cell Distribution Width 14.1 % (11.5-14.5); White Blood Count 4.9 K/mm3 (4.5-10.0)
--- NOTE | 2024-07-31 23:00 | PC.NURSE ---
Report received from ABIGAIL Bhatti
[2024-07-31 23:02] VITALS: BP 137/74; PULSE 94; RESP 18; TEMP 36.5; O2SAT 97
[2024-07-31 23:11] LABS: Alanine Aminotransferase 41 U/L (6-35); Albumin Level 4.5 g/dL (3.5-5.1); Alkaline Phosphatase 37 U/L (38-126); Anion Gap 13 mmol/L (4-12); Aspartate Amino Transferase 25 U/L (14-36); Bilirubin,Total 0.5 mg/dL (0.2-1.3); Blood Urea Nitrogen 10 mg/dL (7-17); Calcium 9.7 mg/dL (8.4-10.2); Carbon Dioxide 20 mmol/L (22-30); Chloride 107 mmol/L (98-107); Estimated CRCL calculation 158 ml/min; Estimated Glomerular Filt Rate > 60; Glucose 99 mg/dL (65-110); Lipase 90 U/L (23-300); Potassium 3.5 mmol/L (3.4-5.0); Sodium 140 mmol/L (137-145)
[2024-07-31 23:22] LABS: Troponin I < 0.012 ng/mL (0.000-0.034)
[2024-07-31 23:56] LABS: Influenza A QL RT-PCR Positive (Negative); Influenza B QL RT-PCR Negative (Negative); RSV RNA, RT-PCR Negative (Negative); SARS-CoV-2 RNA PCR Negative (Negative)
== END 2024-08-01 00:16 | disposition home or self-care (01) ==
PROVIDERS: Physician Assistant; Emergency Provider Physician Assistant; PCP Nurse Practitioner Family
DX: J10.1 Influenza due to other identified influenza virus with other respiratory manifestations (principal); Z20.822 Contact with and (suspected) exposure to COVID-19; K50.90 Crohn's disease, unspecified, without complications; E66.01 Morbid (severe) obesity due to excess calories; Z68.41 Body mass index [BMI] 40.0-44.9, adult; F17.290 Nicotine dependence, other tobacco product, uncomplicated; Z79.899 Other long term (current) drug therapy; Z79.620 Long term (current) use of immunosuppressive biologic; R94.31 Abnormal electrocardiogram [ECG] [EKG]
CPT/HCPCS: 36415; 71046; 80053; 81025; 83690; 84484; 85025; 87637; 93005; 96361; 96374; 96375; 99284; A9270; J1200; J2765; J7030

== ENCOUNTER 2025-01-07 16:47 | Emergency (ER) | payer OTHER, SELFPAY ==
--- NOTE | 2025-01-07 16:53 | ED.GENADULT ---
HPI - General Adult General Chief complaint: Upper Respiratory Infection Stated complaint: Sore Throat Time Seen by Provider: 01/07/25 16:53 Source: patient Mode of arrival: ambulatory Limitations: no limitations History of Present Illness HPI narrative: 25-year-old female patient presents to [facility] with complaints of a sore throat for the past 3 days. Denies any fevers but states she has been had some body aches and chills. Patient denies any ear pain states had a little bit of cough with some mucus. Denies any runny nose or congestion. Denies chest pain or shortness of breath. Patient states she has had a couple episodes of diarrhea. Patient states she has taken some ibuprofen for her pain at times. Related Data Home Medications ?Medication ?Instructions ?Recorded ?Confirmed ?Last Taken ?Type certolizumab pegol 400 mg/2 mL 400 mg subcut WEEKLY 06/16/23 02/14/24 02/23/24 12:00 History (200 mg/mL x2) subcutaneous syringe kit (Cimzia) levothyroxine 150 mcg tablet 150 mcg PO .QD 06/20/24 06/20/24 Unknown History ferrous gluconate 324 mg (38 mg mg 01/07/25 Unknown History iron) tablet medroxyprogesterone 150 mg/mL mg IM 01/07/25 Unknown History intramuscular syringe Allergies Allergy/AdvReac Type Severity Reaction Status Date / Time No Known Allergies Allergy Verified 01/07/25 17:07 Review of Systems Review of Systems: CONSTITUTIONAL: Denies fever, positive body aches and chills, or sweats. EYES: Denies visual changes, redness, or discharge. ENT: Denies rhinorrhea, congestion, positive sore throat, or otalgia. CARDIOVASCULAR: Denies chest pain, palpitations, or edema. RESPIRATORY: Positive cough denies dyspnea. GASTROINTESTINAL: Denies abdominal pain, nausea, vomiting, positive diarrhea. GENITOURINARY: Denies dysuria or hematuria. SKIN: Denies rash or itching. MUSCULOSKELETAL: Denies back pain, joint pain, or myalgia. NEUROLOGIC: Denies headache, numbness, or weakness. PSYCHIATRIC: Denies anxiety or depression. [facility] Past Medical History Medical History Morbid obesity Post-op pain Crohn disease ADHD Hypothyroid Hx of fracture of humerus right Surgical History Surgical History History of section Hx of tonsillectomy Family History Family History Grandparent Diabetes mellitus Hypertension Mother Hypertension Hypothyroid Social History Social History Smoking status: Current every day smoker Tobacco type: e-cigarettes/vaping Second hand tobacco smoke exposure: No Substance use: never Do You Feel Safe in your Home?: Yes Lack of Transportation: No Lack of Food: Never True Current Housing: I Have Housing Concerned About Future Housing: No Difficulty Paying Gas/Electric Bills: No Difficulty Paying for Meds: No Currently Unemployed: No Education: High School Diploma/GED Difficulty w/ Childcare or Family Care: No Living arrangements: with family Gender identity (if verbalized by the patient): Female Spiritual care concerns: No Comments At the time of my signature I agree with nursing past medical history, surgical, social, and family history. There is no relevant family history pertinent to the presenting complaint. Exam Narrative: GENERAL: Well-appearing, well-nourished, and in no acute distress. HEAD: Normocephalic, atraumatic. EYES: PERRLA and EOMI. ENT: Nares clear, no rhinorrhea or epistaxis. Mucous membranes moist. Posterior pharynx with slight erythema no tonsillar enlargement no exudates or lesions. Bilateral TMs are clear the right TM does have a little bit of fluid behind the TM noted. NECK: Supple. No lymphadenopathy CHEST: Clear to auscultation. No respiratory distress. HEART: Regular rate and rhythm. No murmur heard. Normal peripheral pulses. ABDOMEN: Soft, nontender, nondistended, normal active bowel sounds. EXTREMITIES: Normal range of motion. No edema. SKIN: Warm, dry, no rash. NEURO: No focal deficits. Alert and oriented x3. Course Course Level of Care: Express Care Visit Vital Signs Vital signs: Vital signs reviewed. Medical Decision Making MDM Narrative Medical decision making narrative: Patient's point of care test is positive for strep. We will discharge her home with oral antibiotics for the strep infection and she can continue taking Tylenol and ibuprofen for the pain. Patient recommended to follow up with primary doctor for any complications or as needed. Differential Diagnosis Differential Diagnosis: Differential diagnosis: Viral pharyngitis, pharyngitis, group A strep, infectious mononucleosis, gonococcal pharyngitis, exudative pharyngitis, oral candidiasis. Chronic allergies, postnasal drip, GERD, abscess formation, but glottitis, retropharyngeal abscess formation, or airway obstruction. Critical Care Time Critical Care Time Critical Care Time: No Discharge Plan Discharge Clinical Impression: Acute streptococcal pharyngitis Patient Disposition: Home Condition: Stable Instructions: Antibiotic Form, Strep Throat (ED) Additional Instructions: -Take the medication as prescribed. Throw away the toothbrush after 24hours of antibiotic. -Eat things that are easy to swallow, like tea or soup, or popsicles to suck on. You might not feel like eating or drinking, but it's important that you get enough liquids. -Oral rinses such as: Salt water gargles and/or may use topical anesthetic (eg. Chloraseptic spray) or lozenges to relieve dryness or throat pain). -Take Tylenol and ibuprofen as needed for pain and fever as directed. -Frequent hand washing or hand flakeboard line tender is one of the best ways to prevent spread of infection. -Follow up with primary care provider in 2-3 days if condition is not improving or seek ER visit if you start breathing fast/has trouble breathing, is not drinking enough fluids, muffle voice, difficulty opening the mouth. Patient Language: Kazakh Prescriptions: New amoxicillin 500 mg tablet 500 mg PO Q12H 10 Days Qty: 20 0RF No Action Cimzia 400 mg/2 mL (200 mg/mL x 2) syringe kit 400 mg SUBCUT WEEKLY medroxyprogesterone 150 mg/mL syringe IM ferrous gluconate 324 mg (38 mg iron) tablet levothyroxine 150 mcg tablet 150 mcg PO .QD Follow-up/Referrals: Contreras,Iggy Castillo APRN [Primary Care Provider] - Stand Alone Forms: Work/School Release IP Time of Disposition: 17:13
[2025-01-07 17:00] VITALS: BP 119/63; PULSE 77; RESP 20; TEMP 36.6; O2SAT 100
[2025-01-07 17:15] LABS: EDSTREPNEGPOS1 Positive (Negative)
== END 2025-01-07 17:18 | disposition home or self-care (01) ==
PROVIDERS: Emergency Provider Nurse Practitioner Family; PCP Nurse Practitioner Family
DX: J02.0 Streptococcal pharyngitis (principal); F17.290 Nicotine dependence, other tobacco product, uncomplicated; K50.90 Crohn's disease, unspecified, without complications; E66.01 Morbid (severe) obesity due to excess calories; E03.9 Hypothyroidism, unspecified
CPT/HCPCS: 87880; 99213; G0463

== ENCOUNTER 2025-03-15 17:18 | Emergency (ER) | payer OTHER, SELFPAY ==
[2025-03-15 17:30] VITALS: BP 114/59; PULSE 82; RESP 16; TEMP 36.6; O2SAT 100
--- NOTE | 2025-03-15 17:34 | ED_ITS ---
HPI - URI/Sore Throat General Chief Complaint: Upper Respiratory Infection Stated Complaint: Sore Throat Time Seen by Provider: 03/15/25 17:32 Source: patient and RN notes reviewed Mode of arrival: ambulatory Limitations: no limitations History of Present Illness HPI Narrative: 25-year-old female presents with concern for sore throat nasal congestion that started last night. 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 She denies fever, aches, chills, sweats. She has taken [id number] medication without relief MD elicited complaint: cough and sore throat Related Data Home Medications ?Medication ?Instructions ?Recorded ?Confirmed ?Last Taken ?Type certolizumab pegol 400 mg/2 mL 400 mg subcut WEEKLY 02/14/24 02/23/24 12:00 History (200 mg/mL x2) subcutaneous syringe kit (Cimzia) levothyroxine 150 mcg tablet 150 mcg PO .QD 06/20/24 0 06/20/24 Unknown History ferrous gluconate 324 mg (38 mg mg 01/07/25 Unknown H istory iron) tablet medroxyprogesterone 150 mg/mL mg IM 01/07/25 Unknown History intramuscular syringe Allergies Allergy/AdvReac Type Severity Reaction Status Date / Time No Known Allergies Allergy Verified 03/15/25 17:19 Review of Systems Review of Systems: CONSTITUTIONAL: Denies malaise, chills, sweats, or fever. EYES: Denies visual changes, redness, or discharge. ENT: Reports sore throat nasal congestion. Denies rhinorrhea, sinus pain, otalgia CARDIOVASCULAR: Denies chest pain, palpitations, or edema. RESPIRATORY: Denies cough. Denies dyspnea. GASTROINTESTINAL: Denies abdominal pain, nausea, vomiting, diarrhea SKIN: Denies rash or itching. MUSCULOSKELETAL: Denies myalgia. NEUROLOGIC: Denies headache. All systems reviewed & are unremarkable except as noted in HPI and below PMFSH Past Medical History Medical History Morbid obesity Post-op pain Crohn disease ADHD Hypothyroid Hx of fracture of humerus right Surgical History Surgical History History of section Hx of tonsillectomy Family History Family History Grandparent Diabetes mellitus Hypertension Mother Hypertension Hypothyroid Social History Social History Smoking status: Current every day smoker Tobacco type: e-cigarettes/vaping Second hand tobacco smoke exposure: No Substance use: never Do You Feel Safe in your Home?: Yes Lack of Transportation: No Lack of Food: Never True Current Housing: I Have Housing Concerned About Future Housing: No Difficulty Paying Gas/Electric Bills: No Difficulty Paying for Meds: No Currently Unemployed: No Education: High School Diploma/GED Difficulty w/ Childcare or Family Care: No Living arrangements: with family Gender identity (if verbalized by the patient): Female Spiritual care concerns: No Comments At time of signature, agree with nursing past medical, surgical, social and family history. There is no relevant family history pertinent to the presenting complaint Exam Narrative: GENERAL: Well-appearing, well-nourished, and in no acute distress. HEAD: Normocephalic EYES: PERRLA, conjunctivae clear ENT: Nares clear. Mucous membranes moist. TM pearly vega with sharp light reflex bilaterally; no tragal tenderness. Oropharynx not erythematous without lesions. Tonsils not enlarged and without exudate, no drooling, no hoarseness, no trismus, uvula midline. NECK: Supple. No lymphadenopathy CHEST: Clear to auscultation, breath sounds equal. No wheezing, rhonchi, rales, or stridor. No respiratory distress, speaks in full sentences. HEART: Regular rate and rhythm. No murmur heard. SKIN: Warm, dry, no rash. NEURO: Alert and oriented x3. PSYCH: Normal mood and affect Course Course Emergency Course: Patient is aware of diagnosis, understands and agrees to treatment plan. Anticipatory guidance given. Patient agrees to follow-up as directed and is aware of reasons to seek care at the emergency department. Portions of this record may have been created with voice recognition software Level of Care: Express Care Visit Vital Signs Vital signs: Vital Signs Temperature 97.9 F 03/15/25 17:30 Pulse Rate 82 03/15/25 17:30 Respiratory Rate 16 03/15/25 17:30 Blood Pressure 114/59 L 03/15/25 17:30 Pulse Oximetry 100 10/09/25 17:30 Oxygen Delivery Room Air 03/15/25 17:30 Temperature 97.9 F 03/15/25 17:30 Pulse Rate 82 03/15/25 17:30 Respiratory Rate 16 03/15/25 17:30 Blood Pressure 114/59 L 03/15/25 17:30 Pulse Oximetry 100 03/15/25 17:30 Oxygen Delivery Room Air 03/15/25 17:30 Reviewed. MDM - URI/Sore Throat MDM Narrative Medical decision making narrative: Differential diagnosis considered: Morris virus, strep pharyngitis, allergic rhinitis, upper respiratory tract infection, sinusitis, rhinosinusitis, nasopharyngitis. viral pharyngitis, otitis media, otitis externa, pneumonia, bronchitis, viral cough syndrome, viral syndrome, and influenza. Exam findings show no acute concerns or changes; patient is non-toxic appearing and is in no distress. Patient is appropriate for outpatient treatment and follow-up. Lab Data Attestation: I reviewed the patient's lab results. Critical Care Time Critical Care Time Critical Care Time: No Discharge Plan Discharge Clinical Impression: Upper respiratory infection Patient Disposition: Home Condition: Stable Instructions: Upper Respiratory Infection (ED) Additional Instructions: Your COVID and flu tests are negative Your rapid strep swab was negative today at [facility]. A throat culture will be sent to the laboratory for further testing. If the test is positive, you will receive a phone call within 48 hours and an appropriate antibiotic will be initiated at that time. Your symptoms are likely due to a viral illness, which is not treated with antibiotics. Viral symptoms can be present for up to a few weeks. -Alternate Tylenol and Motrin per package directions for fever or pain. -Antihistamine medication such as Benadryl at night and Zyrtec during the day can help improve symptoms. -Eat and drink things that are easy to swallow, like tea or soup, or popsicles to suck on. -Oral rinses such as: Salt water gargles and/or may use topical anesthetic (eg. Chloraseptic spray) or lozenges to relieve dryness or throat pain). -Frequent hand washing or hand director of student services is one of the best ways to prevent spread of infection. -Follow up with primary care provider in 2-3 days if condition is not improving; or seek ER visit if you have trouble breathing, cannot drink enough fluids, have muffled voice, difficulty opening your mouth, or severe swelling. Patient Language: Kiswahili Prescriptions: No Action Cimzia 400 mg/2 mL (200 mg/mL x 2) syringe kit 400 mg SUBCUT WEEKLY medroxyprogesterone 150 mg/mL syringe IM ferrous gluconate 324 mg (38 mg iron) tablet levothyroxine 150 mcg tablet 150 mcg PO .QD Follow-up/Referrals: Contreras,Iggy Castillo APRN [Primary Care Provider, Unknown] Stand Alone Forms: Work/School Release IP Time of Disposition: 17:56
[2025-03-15 17:41] LABS: EDSTREPNEGPOS1 Negative (Negative)
[2025-03-15 17:59] LABS: EDCOVIDSCREEN Negative (Negative); EDINFLUASCREEN Negative (Negative); EDINFLUBSCREEN Negative (Negative)
== END 2025-03-15 18:00 | disposition home or self-care (01) ==
PROVIDERS: Emergency Provider Nurse Practitioner; PCP Nurse Practitioner Family
DX: J06.9 Acute upper respiratory infection, unspecified (principal); Z20.822 Contact with and (suspected) exposure to COVID-19; F17.290 Nicotine dependence, other tobacco product, uncomplicated; K50.90 Crohn's disease, unspecified, without complications; E03.9 Hypothyroidism, unspecified; E66.01 Morbid (severe) obesity due to excess calories
CPT/HCPCS: 87081; 87426; 87804; 87880; 99213; G0463